=== PATIENT | male | born 1970 | race American Indian/Alaskan Native ===

== ENCOUNTER 2016-12-28 19:48 | Inpatient (IN) | payer MEDICARE, OTHER ==
[2016-12-28 19:57] VITALS: BMI 22.6
[2016-12-28] MEDS ORDERED: Morphine 2 mg/ml ISec IVP STA (20:33)
[2016-12-28] MEDS ORDERED: metroNIDAZOLE IV 500 mg/100 ml 500 MG/100 ML BAG IVPB STA (20:33)
[2016-12-28] MEDS ORDERED: Piperacillin/Tazobact 3.375 gm 100 ML IVPB STA (20:33)
--- NOTE | 2016-12-28 20:35 | ED PDOC ---
Arrival/HPI <David Sosa - Last Filed: 12/29/16 00:22> - General Historian: Patient - History of Present Illness Time/Duration: < month Symptom Course: Worsening Quality: Throbbing Severity Level: 10 Context: Home <Juan Barbosa - Last Filed: 12/29/16 01:40> - General Chief Complaint: Pain, Chronic Time Seen by Provider: 12/28/16 19:50 - History of Present Illness Narrative History of Present Illness (Text): 46 M with PMH of HIV/Hep B presents to ED with complaint of rectal pain. Patient states this pain has been going on for almost 1 month. Patient was admitted to [facility] about 2 weeks ago where he was treated for food poisoning. Patient stated he was admitted for 5 days and received IV antibiotics but they did not address his rectal pain. Patient has had anal fissure in the past with similar pain. Patient rates pain as severe. He describes it as constant and throbbing located perianally/perirectally. Admits to anal discharge and abscess. Patient states that he has also had diarrhea since his admission at [facility]. Denies fever/chills, cp, sob, palpitation, abd pain, nausea/vomiting, hematochezia, hematemesis. (Juan Barbosa) Past Medical History - Provider Review Nursing Documentation Reviewed: Yes - Travel History Have you recently traveled outside [place] w/in the past 3 mons?: No - Infectious Disease Hx of Infectious Diseases: None - Gastrointestinal Hx Pancreatitis: Yes - Psychiatric Hx Substance Use: No - Anesthesia Hx Anesthesia: No Hx Anesthesia Reactions: No Hx Malignant Hyperthermia: No <Juan Barbosa - Last Filed: 12/29/16 01:40> Family/Social History - Physician Review Nursing Documentation Reviewed: Yes Family/Social History: Other (HIV/Hep B) Smoking Status: Never Smoked Hx Alcohol Use: No Hx Substance Use: No <Juan Barbosa - Last Filed: 12/29/16 01:40> Allergies/Home Meds <David Sosa - Last Filed: 12/29/16 00:22> <Juan Barbosa - Last Filed: 12/29/16 01:40> Allergies/Adverse Reactions: Allergies PCN Allergy (Mild, Uncoded 12/28/16 19:58) SWELLING Home Medications: Home Meds Medication Instructions Recorded Confirmed No Known Home Med 12/28/16 12/28/16 Review of Systems - Review of Systems Constitutional: absent: Fatigue, Fevers Eyes: absent: Vision Changes, Photophobia, Eye Pain ENT: absent: Hearing Changes, Tinnitus, Sinus Congestion Respiratory: absent: SOB, Cough, Sputum, Wheezing Cardiovascular: absent: Chest Pain, Palpitations Gastrointestinal: Diarrhea. absent: Abdominal Pain, Nausea, Vomiting, Hematochezia, Hematemesis Genitourinary Male: absent: Dysuria, Frequency, Urinary Output Changes Musculoskeletal: absent: Arthralgias, Back Pain, Neck Pain, Joint Swelling, Myalgias Skin: Abscess (perirectal, anal fissure) Neurological: absent: Headache, Dizziness, Focal Weakness Endocrine: absent: Diaphoresis, Polyuria, Polydipsia Hemo/Lymphatic: absent: Adenopathy, Easy Bleeding, Easy Bruising Psychiatric: absent: Anxiety, Depression, Suicidal Ideation <Juan Barbosa - Last Filed: 12/29/16 01:40> Physical Exam <David Sosa - Last Filed: 12/29/16 00:22> Vital Signs Reviewed: Yes Temperature: Afebrile Blood Pressure: Normal Pulse: Tachycardic Respiratory Rate: Normal Appearance: Positive for: Uncomfortable Pain Distress: Severe Mental Status: Positive for: Alert and Oriented X 3 - Systems Exam Head: Present: Atraumatic, Normocephalic Pupils: Present: PERRL Extroacular Muscles: Present: EOMI Conjunctiva: Present: Normal Mouth: Present: Moist Mucous Membranes Neck: Present: Normal Range of Motion, Trachea Midline Respiratory/Chest: Present: Clear to Auscultation, Good Air Exchange Cardiovascular: Present: Normal S1, S2, Peripheal Pulses Present, Tachycardic Abdomen: Present: Normal Bowel Sounds. No: Tenderness, Distention, Peritoneal Signs, Rebound, Guarding Rectal: Present: Rectal Tenderness, Normal Rectal Tone, Fissures, Other (4 x 2 cm perianal/perirectal abscess, small tract to the left portion of rectum) Back: No: CVA Tenderness Upper Extremity: Present: Normal ROM, NORMAL PULSES, Neurovascularly Intact, Capillary Refill < 2s Lower Extremity: Present: NORMAL PULSES, Normal ROM, Neurovascularly Intact, Capillary Refill < 2 s Neurological: Present: GCS=15, CN II-XII Intact, Speech Normal, Motor Func Grossly Intact, Normal Sensory Function Skin: Present: Warm, Dry, Abscess (perianal/peririectal abscess) Psychiatric: Present: Alert, Oriented x 3, Normal Insight, Normal Concentration <Juan Barbosa - Last Filed: 12/29/16 01:40> Vital Signs Temp Pulse Resp BP Pulse Ox 12/29/16 01:15 98.1 F 99 H 20 98 12/28/16 20:00 98.3 F 100 H 20 99 12/28/16 19:52 98.3 F 100 H 20 96/69 L 99 Medical Decision Making <David Sosa - Last Filed: 12/29/16 00:22> <Juan Barbosa - Last Filed: 12/29/16 01:40> ED Course and Treatment: Impression: Pt seen and evaluated with medical service representative. Pt, whose past medical history includes HIV and hepatitis B, presented for rectal pain for 1 month. Pt reports some anal discharge and diarrhea. Aware and agree with HPI, clinical findings, plan, and management. Plan: -- CT Abdomen and Pelvis with IV contrast -- Labs, blood cultures, stool cultures, wound cultures -- Morphine -- Levaquin -- Flagyl -- Reassess and disposition (David Sosa) ABD/Pelvis CT with IV contrast CBC, CMP, blood culture, wound culture, stool culture, fecal leukocytes, ova and parasite, cdiff, FOBT IV Flagyl, Levofloxacin, Morphine CT shows perirectal abscess and dilated CBD. Labs reviewed. LFTs elevated and WBC low. Patient to be admitted under hospitalist service. Case discussed with Dr. Montes. GI and Surgery consulted. Medical and residential manager made aware. ( Juan Barbosa) - Lab Interpretations Lab Results: 12/28/16 21:05 12/28/16 21:05 Lab Results 12/28/16 21:05: WBC 1.9 L*, RBC 4.88, Hgb 14.2, Hct 40.8 L, MCV 83.6, MCH 29.1, MCHC 34.8, RDW 15.1 H, Plt Count 151, MPV 11.6 H 12/28/16 21:05: Sodium 145, Potassium 4.5, Chloride 107, Carbon Dioxide 28, Anion Gap 15, BUN 16, Creatinine 0.8, Est GFR ( Amer) > 60, Est GFR (Non- Af Amer) > 60, Random Glucose 79, Calcium 8.8, Total Bilirubin 0.6, AST 190 H, ALT 226 H, Alkaline Phosphatase 138 H, Total Protein 9.1 H, Albumin 4.0, Globulin 5.1, Albumin/Globulin Ratio 0.8 L - RAD Interpretation Radiology Orders: 12/28/16 20:30 ABD & PELVIS IV CONTRAST ONLY [CT] Stat - Medication Orders Current Medication Orders: Famotidine (Pepcid) 20 mg IVP DAILY [facility] Sodium Chloride (Sodium Chloride 0.9%) 1,000 mls @ 125 mls/hr IV .Q8H [facility] Last Admin: 12/29/16 01:26 Dose: 125 mls/hr Vancomycin HCl (Vancomycin 1gm) 1 gm in 250 mls @ 167 mls/hr IVPB STAT STA PRN Reason: Protocol Stop: 12/29/16 02:35 Morphine Sulfate (Morphine) 2 mg IVP Q4 PRN PRN Reason: Pain, severe (8-10) Last Admin: 12/29/16 01:25 Dose: 2 mg Ondansetron HCl (Zofran Inj) 4 mg IVP Q6H PRN PRN Reason: Nausea/Vomiting Last Admin: 12/29/16 01:33 Dose: 4 mg Discontinued Medications Metronidazole (Flagyl) 500 mg in 100 mls @ 100 mls/hr IVPB STAT STA PRN Reason: Protocol Stop: 12/28/16 21:32 Last Admin: 12/28/16 21:27 Dose: 100 mls/hr Iohexol (Omnipaque 350 100 Ml) Confirm Administered Dose 350 mg .ROUTE .STK-MED ONE Stop: 12/28/16 21:58 Levofloxacin/Dextrose (Levaquin 750mg) 750 mg IVPB ONCE ONE Stop: 12/28/16 20:38 Last Admin: 12/29/16 00:06 Dose: 750 mg Morphine Sulfate (Morphine) 2 mg IVP STAT STA Stop: 12/28/16 20:34 Last Admin: 12/28/16 21:26 Dose: 2 mg ED OBSERVATION Date of observation admission: 12/28/16 Time of observation admission: 20:30 <David Sosa - Last Filed: 12/29/16 00:22> <Juan Barbosa - Last Filed: 12/29/16 01:40> - Observation admission statement Patient is being placed in observation because:: rectal pain (Sheila,David) - Goals of Observation Goals of observation are:: treatment of symptoms, CT scan, and final disposition (David Sosa) - Progress Note Progress Note: 12/28/16 23:29 Reviewed radiology, CT Abdomen and Pelvis shows: Lower thorax: Heart size is normal. There is minimal atelectasis at the lung bases ABDOMEN: Liver: unremarkable Gallbladder and bile ducts: Gallbladder is partially distended. Common bile duct is dilated, 12.8 mm at the pancreatic head. Pancreas: Pancreas is mildly atrophic. There is prominence of the pancreatic duct, 4 mm in diameter in the pancreatic body 5.6 mm in the pancreatic head. Spleen: unremarkable Adrenals: unremarkable Kidneys and ureters: There is a right renal cyst.There are bilateral nonobstructing renal stones.There is no pelvocaliectasis or ureterectasis. Stomach and bowel: Stomach is distended with ingested material. Rotation is normal. There is mild duodenal wall and fold prominence. There is proximal jejunal wall and fold prominence. There are mildly dilated proximal and mid small bowel loops E. reviewed dilatation decreases distally. There is fluid and air throughout the small bowel. Terminal ileum is distended with fluid. Appendix is unremarkable. There is fluid and air in the colon. There is rectal wall thickening. There is perirectal inflammation. There is a poorly defined right perirectal fluid collection/ abscess, 10.8 x 9.3 x 10 mm, images 173-175, series 2, image 66 series 601 Appendix: See above. PELVIS: Bladder: Bladder is almost empty. There is mild bladder wall thickening. Reproductive: There is prominence of the seminal vesicles and prostate. ABDOMEN and PELVIS: Intraperitoneal space: There is no free air.There is no free fluid. Bones/joints: There are no acute osseous abnormalities Soft tissues: See above. Vasculature: Vascular structures are unremarkable. Lymph nodes: unremarkable IMPRESSION: Duodenal, jejunal and rectal wall thickening suggest enterocolitis; small 10.8 x 9.2 x 10 mm right perirectal collection, possible early abscess; mildly distended gallbladder with dilated common bile duct and pancreatic duct, suggesting distal common duct obstruction , MRCP or ERCP is suggested for more complete evaluation Additional findings as described above. 12/28/16 23:38 Case discussed with medical service representative, who is aware and agrees with plan. administration vice president notified. 12/28/16 23:[address] Montes, who is aware and agrees with plan. Pt will go to hospitalist service. (David Sosa) - PA / ANALYTICAL RESEARCH PROGRAM MANAGER / Resident Statement /DO has reviewed & agrees with the documentation as recorded. / has examined the patient and agrees with the treatment plan. <David Sosa - Last Filed: 12/29/16 00:22> Disposition/Present on Arrival - Present on Arrival Any Indicators Present on Arrival: No History of DVT/PE: No History of Uncontrolled Diabetes: No Urinary Catheter: No History of Decub. Ulcer: No History Surgical Site Infection Following: None - Disposition Have Diagnosis and Disposition been Completed?: Yes Disposition Time: 00:15 Patient Plan: Admission <David Sosa - Last Filed: 12/29/16 00:22> - Present on Arrival Any Indicators Present on Arrival: No History of DVT/PE: No History of Uncontrolled Diabetes: No Urinary Catheter: No History of Decub. Ulcer: No History Surgical Site Infection Following: None - Disposition Have Diagnosis and Disposition been Completed?: Yes Patient Plan: Admission <Juan Barbosa - Last Filed: 12/29/16 01:40> - Disposition Diagnosis: Perirectal abscess, Enterocolitis Disposition: HOSPITALIZED Patient Problems: Current Active Problems Problem Status Onset Perirectal abscess Acute Enterocolitis Acute Condition: STABLE
[2016-12-28] MEDS ORDERED: levoFLOXacin 750 mg in D5W 150 ML BAG IVPB ONE (20:37)
[2016-12-28 21:19] LABS: HEMOGLOBIN 14.2 gm/dL (14.0-18.0); MEAN CELL VOLUME 83.6 fL (80.0-105.0); MEAN CORPUSCULAR HEMOGLOBIN 29.1 pg (25.0-35.0); MEAN CORPUSCULAR HGB CONC 34.8 g/dl (31.0-37.0); MEAN PLATELET VOLUME 11.6 fl (7.0-11.0); RBC 4.88 10^6/uL (3.5-6.1); RED CELL DISTRIBUTION WIDTH 15.1 % (11.5-14.5)
[2016-12-28 21:30] LABS: WHITE BLOOD COUNT 1.9 10^3/ul (4.5-11.0)
[2016-12-28 21:34] LABS: ALB/GLOB RATIO 0.8 (1.1-1.8); ALT/SGPT 226 U/L (7-56); AST/SGOT 190 U/L (15-59); BLOOD UREA NITROGEN 16 mg/dL (7-21); CALCIUM 8.8 mg/dL (8.4-10.5); GFR AFRICAN-AMERICAN > 60; GFR NON-AFRICAN AMERICAN > 60
[2016-12-28] MEDS ORDERED: Iohexol 350 MG/100 ML VIAL ONE (21:57)
--- NOTE | 2016-12-28 23:21 | CT ---
EXAM: CT Abdomen and Pelvis With Intravenous Contrast CLINICAL HISTORY: 46 years old, male; Pain; Abdominal pain; Other: R/O rectal abscess; Prior surgery; Surgery date: 6+ months; Surgery type: Hernia; Additional info: R/O perirectal/rectal abscess TECHNIQUE: Axial computed tomography images of the abdomen and pelvis with intravenous contrast. This CT exam was performed using one or more of the following dose reduction techniques: automated exposure control, adjustment of the mA and/or kV according to patient size, and/or use of iterative reconstruction technique. Coronal and sagittal reformatted images were created and reviewed. CONTRAST: 95 mL of [id number] administered intravenously. EXAM DATE/TIME: 12/28/2016 8:30 PM COMPARISON: There are no prior studies for comparison. FINDINGS: Lower thorax: Heart size is normal. There is minimal atelectasis at the lung bases ABDOMEN: Liver: unremarkable Gallbladder and bile ducts: Gallbladder is partially distended. Common bile duct is dilated, 12.8 mm at the pancreatic head. Pancreas: Pancreas is mildly atrophic. There is prominence of the pancreatic duct, 4 mm in diameter in the pancreatic body 5.6 mm in the pancreatic head. Spleen: unremarkable Adrenals: unremarkable Kidneys and ureters: There is a right renal cyst.There are bilateral nonobstructing renal stones.There is no pelvocaliectasis or ureterectasis. Stomach and bowel: Stomach is distended with ingested material. Rotation is normal. There is mild duodenal wall and fold prominence. There is proximal jejunal wall and fold prominence. There are mildly dilated proximal and mid small bowel loops E. reviewed dilatation decreases distally. There is fluid and air throughout the small bowel. Terminal ileum is distended with fluid. Appendix is unremarkable. There is fluid and air in the colon. There is rectal wall thickening. There is perirectal inflammation. There is a poorly defined right perirectal fluid collection/abscess, 10.8 x 9.3 x 10 mm, images 173-175, series 2, image 66 series 601 Appendix: See above. PELVIS: Bladder: Bladder is almost empty. There is mild bladder wall thickening. Reproductive: There is prominence of the seminal vesicles and prostate. ABDOMEN and PELVIS: Intraperitoneal space: There is no free air.There is no free fluid. Bones/joints: There are no acute osseous abnormalities Soft tissues: See above. Vasculature: Vascular structures are unremarkable. Lymph nodes: unremarkable IMPRESSION: Duodenal, jejunal and rectal wall thickening suggest enterocolitis; small 10.8 x 9.2 x 10 mm right perirectal collection, possible early abscess; mildly distended gallbladder with dilated common bile duct and pancreatic duct, suggesting distal common duct obstruction, MRCP or ERCP is suggested for more complete evaluation Additional findings as described above.
--- NOTE | 2016-12-29 00:36 | CP.PCM.CON ---
<Vishal Gutierrez - Last Filed: 12/29/16 08:47> History of Present Illness - History of Present Illness History of Present Illness: Consult Note- Dr. Baig 46M PMHx of HIV, HepB presented to the ED for diarrhea and perianal abscess. Pt was at [facility] 2 weeks ago for similar symptoms and was discharged after stool tests came back negative. Pt does not recall which tests were taken. Pt was then discharged and ha-anal pain and diarrhea continued to worsen. Pt takes motrin and notices it helps. however over the last week Motrin has decreased effectiveness. Pt denies F/C CP/SOB N/V. Most recent CD4 and viral load was in August 2016. Does not remember exact numbers, CD4 count was low Viral load was elevated. Infectious disease doctor: Dr. Yun PMH: HIV, HepB PSH: umbilical hernia repair, colonoscopy ALL: PCN SocialHx: denies smoking, etoh use, illicit drug use. Review of Systems - Review of Systems All systems: reviewed and no additional remarkable complaints except Past Patient History - Infectious Disease Hx of Infectious Diseases: None - Past Social History Smoking Status: Never Smoked - GASTROINTESTINAL Hx Pancreatitis: Yes - PSYCHIATRIC Hx Substance Use: No - ANESTHESIA Hx Anesthesia: No Hx Anesthesia Reactions: No Hx Malignant Hyperthermia: No Meds Allergies/Adverse Reactions: Allergies Allergy/AdvReac Type Severity Reaction Status Date / Time PCN Allergy Mild SWELLING Uncoded 12/28/16 19:58 Physical Exam - Eye Exam Eye Exam: EOMI - Neck Exam Neck exam: Negative for: Lymphadenopathy - Respiratory Exam Respiratory Exam: NORMAL BREATHING PATTERN. absent: Accessory Muscle Use - GI/Abdominal Exam GI & Abdominal Exam: Soft. absent: Distended, Guarding, Organomegaly - Rectal Exam Rectal Exam: absent: Hemorrhoids Additional comments: fluctuant abscess at 9o'clock position. musucal tear at 7:30. active purulent drainage during exam. No blood per rectum. - Neurological Exam Neurological exam: Alert, Oriented x3 - Skin Skin Exam: Normal Color, Warm Results - Vital Signs Recent Vital Signs: Last Vital Signs Temp 98.3 F 12/28/16 20:00 Pulse 100 H 12/28/16 20:00 Resp 20 12/28/16 20:00 BP 96/69 L 12/28/16 19:52 Pulse Ox 99 12/28/16 20:00 - Labs Result Diagrams: 12/28/16 21:05 12/28/16 21:05 Assessment & Plan - Assessment and Plan (Free Text) Assessment: 46M hx HIV, perianal pain Plan: - f/u cultures - f/u AM labs - IV abx - NPO aftermidnight - pain control - GI/DVT ppx - OR Thursday for I&D of Right perirectal abscess - further recs per Dr. Baig d/w Dr. Safia Gutierrez PGY1 - Date & Time Date: 12/29/16 Time: 12:15 <Michael Baig - Last Filed: 12/30/16 20:12> Meds - Medications Medications: Current Medications Famotidine (Pepcid) 20 mg IVP DAILY [facility] Last Admin: 12/30/16 09:59 Dose: 20 mg Sodium Chloride (Sodium Chloride 0.9%) 1,000 mls @ 125 mls/hr IV .Q8H [facility] Last Admin: 12/30/16 14:26 Dose: 125 mls/hr Vancomycin HCl (Vancomycin 1gm) 1 gm in 250 mls @ 167 mls/hr IVPB Q12H [facility] PRN Reason: Protocol Last Admin: 12/30/16 14:26 Dose: 167 mls/hr Aztreonam (Azactam 1 Gm) 100 mls @ 100 mls/hr IVPB Q8 [facility] PRN Reason: Protocol Stop: 01/06/17 14:46 Last Admin: 12/30/16 17:18 Dose: 100 mls/hr Ibuprofen (Motrin Tab) 400 mg PO Q6H PRN PRN Reason: Fever >100.4 F Last Admin: 12/30/16 06:00 Dose: 400 mg Morphine Sulfate (Morphine) 2 mg IVP Q4 PRN PRN Reason: Pain, severe (8-10) Last Admin: 12/30/16 13:19 Dose: 2 mg Ondansetron HCl (Zofran Inj) 4 mg IVP Q6H PRN PRN Reason: Nausea/Vomiting Last Admin: 12/30/16 06:52 Dose: 4 mg Results - Vital Signs Recent Vital Signs: Last Vital Signs Temp 98.2 F 12/30/16 16:00 Pulse 71 12/30/16 16:00 Resp 20 08/01/17 16:00 BP 98/61 L 12/30/16 16:00 Pulse Ox 98 12/30/16 16:00 - Labs Result Diagrams: 12/30/16 01:40 12/30/16 08:00 Labs: Laboratory Results - last 24 hr 12/29/16 12/29/16 12/30/16 11:45 11:51 01:40 WBC 2.4 L* D RBC 4.07 Hgb 11.5 L Hct 34.3 L MCV 84.3 MCH 28.3 MCHC 33.5 RDW 15.4 H Plt Count 118 L MPV 11.1 H Neutrophils % (Manual) 66 Band Neutrophils % 9 H Lymphocytes % (Manual) 9 L Monocytes % (Manual) 14 H Eosinophils % (Manual) 2 Platelet Evaluation Normal Large Platelets Present Sodium Potassium Chloride Carbon Dioxide Anion Gap BUN Creatinine Est GFR ( Amer) Est GFR (Non-Af Amer) Random Glucose Calcium Total Bilirubin AST ALT Alkaline Phosphatase Total Protein Albumin Globulin Albumin/Globulin Ratio Procalcitonin 0.16 L Anti-Mitochondrial Ab Negative 12/30/16 08:00 WBC RBC Hgb Hct MCV MCH MCHC RDW Plt Count MPV Neutrophils % (Manual) Band Neutrophils % Lymphocytes % (Manual) Monocytes % (Manual) Eosinophils % (Manual) Platelet Evaluation Large Platelets Sodium 141 Potassium 3.5 L Chloride 113 H Carbon Dioxide 19 L Anion Gap 13 BUN 12 Creatinine 0.9 Est GFR ( Amer) > 60 Est GFR (Non-Af Amer) > 60 Random Glucose 79 Calcium 7.3 L Total Bilirubin 0.5 AST 149 H ALT 159 H Alkaline Phosphatase 78 Total Protein 6.2 Albumin 2.5 L Globulin 3.7 Albumin/Globulin Ratio 0.7 L Procalcitonin Anti-Mitochondrial Ab Attending/Attestation - Attestation I have personally seen and examined this patient.: Yes I have fully participated in the care of the patient.: Yes I have reviewed all pertinent clinical information: Yes Notes (Text): 12/30/16 20:12 Pt was seen and examined at bedside on 12/29/16 Agree with above note and assessment Pt with Perianal absces CT scan and Labs reviewed I & D at bedside Consent NPO, IVF IV antibiotics GI consult for possible IBD Plan d.w pt in detail. Risk and benefit explained in detail.
[2016-12-29] MEDS ORDERED: Vancomycin 1gm in NS 250ml 1 GM/250 ML BAG IVPB STA (01:06)
[2016-12-29] MEDS: Morphine 2 mg/ml ISec IVP PRN ×3 (01:25→22:27)
[2016-12-29] MEDS: Sodium Chloride 0.9% 1,000 ML IV SCH ×2 (01:26→09:06)
--- NOTE | 2016-12-29 02:59 | CP.PCM.HP ---
<ESTHER CONTRERAS - Last Filed: 12/29/16 02:41> History of Present Illness - History of Present Illness History of Present Illness: CC: Rectal Pain/Diarrhea HPI: Mr. Isaac is a 46 year old AA male with a PMH significant for HIV and Hepatitis B who presented with complaints of rectal pain and diarrhea. Patient states the rectal pain is constant and that at times is sharp but is mostly throbbing. He reports that when he wipes himself after a BM, he notices blood and sometimes clear fluid. He states it has been going on for almost one month and reports that his ID doctor told him that he probably has an abscess that needs to be drained. Patient was admitted to [facility] about 2 weeks ago where he was treated for food poisoning. Patient stated that he was admitted for several days and received IV antibiotics but they did not address his rectal pain. Since that time, he has had 1-3 episodes of non-bloody diarrhea daily. Patient has had anal fissure in the past with similar pain but no surgical intervention was ever performed. Patient denies headache, dizziness, changes in vision, fever , chills, chest pain, shortness of breath, palpitations, abdominal pain, N/V, hematochezia, or hematemesis. PMH: HIV, Hepatitis B PSH: Hernia repair (at age 11) Family History: Heroin Abuse-Mother Social History: Denies tobacco, alcohol, or illicit drug use Allergies: Penicillin Home Meds: Truvada, patient could not remember his other home medication and states that his meds are "being switched right now" Present on Admission - Present on Admission Any Indicators Present on Admission: No Review of Systems - Review of Systems Review of Systems: Please refer to HPI Past Patient History - Infectious Disease Hx of Infectious Diseases: None - Past Social History Smoking Status: Never Smoked - GASTROINTESTINAL Hx Pancreatitis: Yes - PSYCHIATRIC Hx Substance Use: No - ANESTHESIA Hx Anesthesia: No Hx Anesthesia Reactions: No Hx Malignant Hyperthermia: No Meds Allergies/Adverse Reactions: Allergies Allergy/AdvReac Type Severity Reaction Status Date / Time PCN Allergy Mild SWELLING Uncoded 12/28/16 19:58 Physical Exam - Constitutional Appears: No Acute Distress - Head Exam Head Exam: NORMAL INSPECTION, NORMOCEPHALIC - Eye Exam Eye Exam: EOMI, Normal appearance - ENT Exam ENT Exam: Mucous Membranes Moist, Normal Exam - Neck Exam Neck exam: Positive for: Full Rom. Negative for: Lymphadenopathy, Tenderness - Respiratory Exam Respiratory Exam: Clear to Auscultation Bilateral, NORMAL BREATHING PATTERN. absent: Rales, Rhonchi, Wheezes, Respiratory Distress - Cardiovascular Exam Cardiovascular Exam: REGULAR RHYTHM, RRR, +S1, +S2. absent: Tachycardia, Diastolic murmur, Systolic Murmur - GI/Abdominal Exam GI & Abdominal Exam: Normal Bowel Sounds, Soft. absent: Distended, Firm, Tenderness - Rectal Exam Additional comments: Purulent drainage from small open wound on R anal cleft; fluctuant mass at 9 o' clock position; mucosal tear at 7:30. - Extremities Exam Extremities exam: Positive for: normal capillary refill, pedal pulses present. Negative for: calf tenderness, pedal edema - Neurological Exam Neurological exam: Alert, Oriented x3 - Psychiatric Exam Psychiatric exam: Normal Affect, Normal Mood - Skin Skin Exam: Dry, Intact, Normal Color, Warm Results - Vital Signs Recent Vital Signs: Last Vital Signs Temp 98.1 F 12/29/16 01:15 Pulse 99 H 12/29/16 01:15 Resp 18 12/29/16 01:49 BP 96/69 L 12/28/16 19:52 Pulse Ox 99 12/29/16 01:49 - Labs Result Diagrams: 12/28/16 21:05 12/28/16 21:05 Assessment & Plan - Assessment and Plan (Free Text) Assessment: Mr. Isaac is a 46 year old AA male with a PMH significant for HIV and Hepatitis B who presented with complaints of rectal pain and diarrhea. Plan: 1. Rectal Abscess -CT abd/pelv showed enterolcolitis in duodenal, jejunal and rectal dumont, early perirectal abscess, and mildly distended CBD -surgery consulted, all recs appreciated -I&D scheduled 12/29, per surgery -start vanco for empiric coverage of gram positive organisms -morphine for pain control -NPO except meds -blood/wound cultures pending 2. Diarrhea -see CT results above -started on flagyl -IVF: NS @ 125mls/hr -Cdiff, stool ova/parasites, stool culture, and stool leukocytes pending 3. Dilated CBD/Cholelithiasis -see CT results above; recommends MRCP or ERCP -elevated AST/ALT/AP -GI consulted, all recs appreciated 4. History of HIV -sees Dr. Yun as outpatient -states last CD4 done in August was "low" and viral load "high" -CD4 pending 5. History of Hepatitis B -hep panel pending 6. GI/DVT Prophylaxis -Pepcid/scd's Patient seen and case discussed in detail with attending, Dr. Montes. - Date & Time Date: 12/29/16 Time: 03:05 <Saad Montes Q - Last Filed: 12/29/16 04:43> Results - Vital Signs Recent Vital Signs: Last Vital Signs Temp 98.6 F 12/29/16 02:55 Pulse 80 12/29/16 02:55 Resp 20 12/29/16 02:55 BP 80/46 L 12/29/16 02:55 Pulse Ox 99 12/29/16 01:49 - Labs Result Diagrams: 12/28/16 21:05 12/28/16 21:05 Attending/Attestation - Attestation I have personally seen and examined this patient.: Yes I have fully participated in the care of the patient.: Yes I have reviewed all pertinent clinical information: Yes
[2016-12-29 08:45] LABS: INR 1.36 (0.93-1.08); PARTIAL THROMBOPLASTIN TIME 32.7 Seconds (23.7-30.8); PROTHROMBIN TIME 14.7 Seconds (9.9-11.8)
[2016-12-29 08:52] LABS: URINE BILIRUBIN NEGATIVE (NEGATIVE); URINE BLOOD TRACE-LYSED (NEGATIVE); URINE GLUCOSE (UA) NEGATIVE (NEGATIVE); URINE LEUKOCYTE ESTERASE NEGATIVE Leu/uL (NEGATIVE); URINE NITRATE NEGATIVE (NEGATIVE); URINE PROTEIN TRACE mg/dL (<30 mg/dL); URINE UROBILINOGEN 0.2 E.U./dL (<1 E.U./dL)
[2016-12-29 08:53] LABS: URINE APPEARANCE CLEAR (CLEAR); URINE COLOR YELLOW (YELLOW)
[2016-12-29 08:55] LABS: URINE EPITHELIAL CELLS 0 - 2 /hpf (0-5); URINE WBC 0 - 2 /hpf (0-6)
[2016-12-29 08:56] LABS: URINE BACTERIA NEG (NEG)
[2016-12-29 09:11] LABS: BARBITURATES, UR NEGATIVE (NEGATIVE); BENZODIAZEPINES, UR NEGATIVE (NEGATIVE); OPIATES, UR POSITIVE (NEGATIVE); PHENCYCLIDINE, UR NEGATIVE (NEGATIVE)
--- NOTE | 2016-12-29 09:38 | RAD ---
HISTORY: pre-op COMPARISON: No prior. FINDINGS: LUNGS: No active pulmonary disease. PLEURA: No significant pleural effusion identified, no pneumothorax apparent. CARDIOVASCULAR: Normal. OSSEOUS STRUCTURES: No significant abnormalities. VISUALIZED UPPER ABDOMEN: Normal. OTHER FINDINGS: None. IMPRESSION: No active disease.
--- NOTE | 2016-12-29 10:13 | CARD ---
APPROVED REPORT EKG Measurement Heart [id number] <Conclusion> Sinus rhythm with frequent premature atrial complexes
[2016-12-29] MEDS ORDERED: Sodium Chloride 0.9% 1,000 ML IV STA (11:50)
[2016-12-29 12:04] LABS: HEPATITIS A IGM NEGATIVE (NEGATIVE)
[2016-12-29 12:05] LABS: HEPATITIS B CORE AB NEGATIVE (NEGATIVE)
[2016-12-29 12:16] LABS: HEPATITIS C ANTIBODY NEGATIVE (NEGATIVE)
[2016-12-29] MEDS: levoFLOXacin 750 mg in D5W 750 MG/150 ML BAG IVPB SCH (12:31)
--- NOTE | 2016-12-29 12:42 | CP.PCM.PN ---
<ChinoWanda - Last Filed: 12/29/16 12:35> Subjective - Date & Time of Evaluation Date of Evaluation: 12/29/16 Time of Evaluation: 12:35 - Subjective Subjective: PT seen and examined at bedside. No acute overnight events. Patient states he has diarrhea and rectal pain. Today, he had pain after bowel movement. PT denies F/C, N/V, constipation. Patient states no abdominal pain. Patient is going to OR today for I&D Objective - Vital Signs/Intake and Output Vital Signs (last 24 hours): Temp Pulse Resp BP Pulse Ox 98.7 F 80 20 87/57 L 98 12/29/16 08:00 12/29/16 08:00 12/29/16 08:00 12/29/16 08:00 12/29/16 08:00 Intake and Output: 12/29/16 12/29/16 06:59 18:59 Intake Total 100 Output Total 100 Balance 0 - Medications Medications: Current Medications Famotidine (Pepcid) 20 mg IVP DAILY COUNT INCLUDES [facility] Last Admin: 12/29/16 09:08 Dose: 20 mg Sodium Chloride (Sodium Chloride 0.9%) 1,000 mls @ 125 mls/hr IV .Q8H FLAQUITA Last Admin: 12/29/16 09:06 Dose: 125 mls/hr Metronidazole (Flagyl) 500 mg in 100 mls @ 100 mls/hr IVPB Q8 [facility]LAQUITA PRN Reason: Protocol Levofloxacin/Dextrose (Levaquin 750mg) 750 mg in 150 mls @ 100 mls/hr IVPB DAILY COUNT INCLUDES THE [facility] Last Admin: 12/29/16 12:31 Dose: 100 mls/hr Sodium Chloride (Sodium Chloride 0.9%) 1,000 mls @ 999 mls/hr IV .Q1H1M STA Stop: 12/29/16 12:50 Last Admin: 12/29/16 11:57 Dose: 999 mls/hr Morphine Sulfate (Morphine) 2 mg IVP Q4 PRN PRN Reason: Pain, severe (8-10) Last Admin: 12/29/16 12:31 Dose: 2 mg Ondansetron HCl (Zofran Inj) 4 mg IVP Q6H PRN PRN Reason: Nausea/Vomiting Last Admin: 12/29/16 01:33 Dose: 4 mg - Labs Labs: PT 14.7 Seconds (9.9-11.8) H 12/29/16 08:00 INR 1.36 (0.93-1.08) H 12/29/16 08:00 APTT 32.7 Seconds (23.7-30.8) H 12/29/16 08:00 Assessment and Plan - Assessment and Plan (Free Text) Assessment: 46M with perirectal abscess and CBD dilation. History of HIV and Hep C. Plan: leukopenia, HIV f/u CD4 count monitor CBC IVF NS 1 L bolus, continue NS @ 125cc/hr Monitor BM, I/Os f/u [facility] medical records Rectal abscess: f/u Blood and Wound Cx start abx: levofloxacin and flagyl f/u MRI Abdomen with contrast Elevated LFTs, Hep C f/u antimitochondrial ab, IgG subclass 4, procalcitonin levels Dilated CBD: f/u MRCP <Jamin MARINO,[facility] - Last Filed: 01/02/17 13:30> Objective - Vital Signs/Intake and Output Vital Signs (last 24 hours): Temp Pulse Resp BP Pulse Ox 99.1 F 68 18 105/63 99 01/02/17 08:00 01/02/17 08:00 01/02/17 08:00 01/02/17 08:00 01/02/17 08:00 Intake and Output: 01/02/17 01/02/17 06:59 18:59 Intake Total 600 Output Total 450 Balance 150 - Medications Medications: Current Medications Atovaquone (Mepron) 1,500 mg PO DAILY COUNT INCLUDES THE [facility] Last Admin: 01/02/17 10:39 Dose: Not Given Azithromycin (Zithromax) 200 mg PO Q7D [facility] PRN Reason: Protocol Last Admin: 01/01/17 14:44 Dose: Not Given Azithromycin (Zithromax) 1,000 mg PO Q7D [facility] PRN Reason: Protocol Last Admin: 01/01/17 14:44 Dose: Not Given Famotidine (Pepcid) 20 mg IVP DAILY COUNT INCLUDES THE [facility] Last Admin: 01/02/17 10:27 Dose: 20 mg Aztreonam (Azactam 1 Gm) 100 mls @ 100 mls/hr IVPB Q8 [facility] PRN Reason: Protocol Stop: 01/06/17 14:46 Last Admin: 01/02/17 05:58 Dose: 100 mls/hr Metronidazole (Flagyl) 500 mg in 100 mls @ 100 mls/hr IVPB Q8 [facility] PRN Reason: Protocol Last Admin: 01/02/17 05:58 Dose: 100 mls/hr Ibuprofen (Motrin Tab) 400 mg PO Q6H PRN PRN Reason: Fever >100.4 F Last Admin: 01/01/17 08:15 Dose: 400 mg Lactobacillus Acidophilus (Bacid Acidophilus) 1 cap PO BID [facility] Last Admin: 01/02/17 10:27 Dose: 1 cap Morphine Sulfate (Morphine) 2 mg IVP Q4H PRN PRN Reason: Pain, severe (8-10) Last Admin: 01/02/17 05:24 Dose: 2 mg Ondansetron HCl (Zofran Inj) 4 mg IVP Q6H PRN PRN Reason: Nausea/Vomiting Last Admin: 01/02/17 05:24 Dose: 4 mg - Labs Labs: 01/02/17 07:00 01/02/17 07:00 PT 14.7 Seconds (9.9-11.8) H 12/29/16 08:00 INR 1.36 (0.93-1.08) H 12/29/16 08:00 APTT 32.7 Seconds (23.7-30.8) H 12/29/16 08:00 Attending/Attestation - Attestation I have personally seen and examined this patient.: Yes I have fully participated in the care of the patient.: Yes I have reviewed all pertinent clinical information, including history, physical exam and plan: Yes Notes (Text): 01/02/17 13:26 Patient was seen and examined with medical lab assistant. 46 year old AA male with a PMH significant for HIV and Hepatitis C who presented with complaints of rectal pain and diarrhea last night , has ha rectal abscess, surgery is planning to take him to OR, Patient also also has elevated LFT and dilated CBD, need MRCP, Patient case was discussed with GI Management plan was discussed in detail with patient. Education was provided.
[2016-12-29] MEDS: metroNIDAZOLE IV 500 mg/100 ml 500 MG/100 ML BAG IVPB SCH ×2 (14:13→22:28)
[2016-12-29 14:16] LABS: HEPATITIS B SURFACE AG POSITIVE (NEGATIVE)
[2016-12-29] MEDS ORDERED: Morphine 4 mg/ml ISec IVP STA (17:57)
--- NOTE | 2016-12-29 20:23 | PCM.SURG1 ---
Surgeon's Initial Post Op Note - Surgeon's Notes Surgeon: Safia Merchant Patroller: [place] Pre-Operative Diagnosis: Perianal abscess Operative Findings: same, pus Post-Operative Diagnosis: same Operation Performed: Incision and drainage of perianal abscess Specimen/Specimens Removed: n/a, culture of pus Estimated Blood Loss: EBL {In ML}: 5 Date of Surgery/Procedure: 12/29/16 Time of Surgery/Procedure: 17:00
--- NOTE | 2016-12-29 20:48 | CON ---
GI CONSULTATION Seen and examined at the bedside this morning. The chart was reviewed. REQUEST FOR CONSULT: Perirectal abscess and dilated CBD. HISTORY OF PRESENT ILLNESS: This is a 46-year-old male with a past medical history of HIV and hepatitis B, who came to the emergency room with complaints of rectal ramon and diarrhea. The patient was recently admitted in [facility] about 2 weeks ago, where he states he was treated for food poisoning, and which he received IV antibiotics. The patient states that he did complaint of rectal pain during that admission, but no interventions were done. He did state that he had multiple test on [facility]. He had CAT scan as well as an MRI and abdominal ultrasound and that it did show gallstones. He does report, that he has had this rectal pain for quite a while, perhaps over a year. He does complain of episodes of non bloody diarrhea daily. History of anal fissure in the past but no surgical intervention needed. Denies any hematochezia or hematemesis. He states that he is following up with doctors at [facility] infectious disease doctor, Dr. Abdi and Dr. Nagy who is a integrative therapeutic medicine. On admission, he did have CAT scan of the abdomen and pelvis with only IV contrast and that showed duodenal, jejunal, rectal wall thickening, suggestive of enterocolitis as well as a 10.8 x 9.2 x 10 mm right perirectal collection. The gallbladder was reported to be distended and showed also a dilated CBD and pancreatic duct. PAST MEDICAL HISTORY: As stated above hepatitis B, HIV, recent food poisoning. Discharged [facility] about 2 weeks ago. PAST SURGICAL HISTORY: He had a hernia repair. FAMILY HISTORY: His mother was heroin abuse. SOCIAL HISTORY: Clare any tobacco, alcohol, or ETOH. 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 ALLERGIES: PENICILLIN. MEDICATION: Reviewed as per JUL. REVIEW OF SYSTEMS: Systems reviewed with positive findings see HPI. He also had a chest x-ray on admission and that was negative for any active disease. PHYSICAL EXAMINATION VITAL SIGNS: Temperature is 98.7, blood pressure is 87/57, pulse 80, respirations 20 and 98% on room air. HEENT: Sclerae are anicteric. NECK: Supple. CARDIAC: S1 and S2. LUNGS: Decreased breath sounds, but good air entry. ABDOMEN: With bowel sounds soft and nontender. No rebound or guarding. RECTAL: The patient has a small open wound on the right inner crest with purulent drainage. EXTREMITIES: Positive pedal pulses. No edema. NEUROLOGIC: Awake, alert and oriented. LABORATORY DATA: From 12/28/2016 H&H 14.2 and 40.8, platelets is 151. PT is 14.7, INR is 1.36 and PTT is 32.7. Sodium 145, potassium 4.5, BUN 16 and creatinine 0.8. Total bilirubin 0.6, AST 190, ALT 226, alkaline phosphatase is 138. Urinalysis was done, it showed trace the blood and protein, negative for Leukocyte esterase. Toxicology is positive for opiates only. ASSESSMENT: This is 46-year-old male with a past medical history of human immunodeficiency virus and hepatitis B came to the emergency room with complaints of rectal pain, and diarrhea. Recently discharged from [facility] for food poisoning. The patient is status post CT scan of the abdominal and pelvis, which reveals enterocolitis of the duodenal, jejunal and rectal dumont, early perirectal abscess and distended common bile duct,diarrhea, dilated common bile duct and cholelithiasis. PLAN: The patient states that he had multiple diagnostics test done [facility] of CAT scan/MRI/abdominal ultrasound. I spoke to the patient and nursing staff and request medical record from [facility]. The patient agreed to sign release form. In the meantime, follow up hepatitis panel, his stool for C. diff, ova and parasite, stool culture and wound culture results are currently pending. He is going to have an I&D with surgery today. Also follow the fecal leukocytes. Continue GI prophylaxis, he is on Pepcid 20 IV, IV antibiotics of Levaquin and Flagyl. He is on morphine for pain, continue IV fluid for hydration and we will make further recommendations after review of his pervious scans [facility]. Thank you for this consult and for allowing us to participate in your patient's care. The patient was seen and care discussed with Dr. Hidalgo. GUEVARA Mortensen
[2016-12-30 02:17] LABS: HEMOGLOBIN 11.5 gm/dL (14.0-18.0); MEAN CELL VOLUME 84.3 fL (80.0-105.0); MEAN CORPUSCULAR HEMOGLOBIN 28.3 pg (25.0-35.0); MEAN CORPUSCULAR HGB CONC 33.5 g/dl (31.0-37.0); MEAN PLATELET VOLUME 11.1 fl (7.0-11.0); PLATELET COUNT 118 10^3/uL (120.0-450.0); RBC 4.07 10^6/uL (3.5-6.1); RED CELL DISTRIBUTION WIDTH 15.4 % (11.5-14.5)
[2016-12-30 02:23] LABS: WHITE BLOOD COUNT 2.4 10^3/ul (4.5-11.0)
[2016-12-30 03:34] LABS: BAND 9 % (0-2); EOSINOPHIL 2 % (0.0-3.0); LYMPHOCYTE 9 % (22.0-35.0); MONOCYTE 14 % (1.0-6.0); NEUTROPHIL 66 % (50.0-70.0); PLATELET ESTIMATE NORMAL (NORMAL)
[2016-12-30 03:35] LABS: LARGE PLATELETS PRESENT
[2016-12-30] MEDS: metroNIDAZOLE IV 500 mg/100 ml 500 MG/100 ML BAG IVPB SCH ×2 (06:00→14:32)
[2016-12-30] MEDS: Morphine 2 mg/ml ISec IVP PRN ×3 (06:52→20:20)
[2016-12-30 09:59] LABS: ALB/GLOB RATIO 0.7 (1.1-1.8); ALBUMIN 2.5 g/dL (3.0-4.8); ALT/SGPT 159 U/L (7-56); AST/SGOT 149 U/L (15-59); BLOOD UREA NITROGEN 12 mg/dL (7-21); CALCIUM 7.3 mg/dL (8.4-10.5); GFR AFRICAN-AMERICAN > 60; GFR NON-AFRICAN AMERICAN > 60
[2016-12-30] MEDS ORDERED: Gadodiamide 287 MG/ML VIAL (15ML) IV ONE (10:25)
--- NOTE | 2016-12-30 11:18 | CP.PCM.PN ---
<ChinoWanda - Last Filed: 12/30/16 11:54> Subjective - Date & Time of Evaluation Date of Evaluation: 12/30/16 Time of Evaluation: 11:11 - Subjective Subjective: PT S&E at bedside. JAGRUTI. Nurse called to make residents aware of temperature overnight. Patient is resting comfortably in bed. He states there is pain, but is tolerating the pain. He states that he would like to move and walk around. Patient is asking case management referral for [facility]. Patient denies F/C , N/V, C/D. Objective - Vital Signs/Intake and Output Vital Signs (last 24 hours): Temp Pulse Resp BP Pulse Ox 101.8 F H 91 H 20 103/57 L 98 12/30/16 08:22 12/30/16 08:22 12/30/16 08:22 12/30/16 08:22 12/30/16 08:22 Intake and Output: 12/30/16 12/30/16 06:59 18:59 Intake Total 180 Output Total 400 Balance -220 - Medications Medications: Current Medications Famotidine (Pepcid) 20 mg IVP DAILY [facility] Last Admin: 12/30/16 09:59 Dose: 20 mg Sodium Chloride (Sodium Chloride 0.9%) 1,000 mls @ 125 mls/hr IV .Q8H [facility] Last Admin: 12/29/16 09:06 Dose: 125 mls/hr Metronidazole (Flagyl) 500 mg in 100 mls @ 100 mls/hr IVPB Q8 [facility] PRN Reason: Protocol Last Admin: 12/30/16 06:00 Dose: 100 mls/hr Levofloxacin/Dextrose (Levaquin 750mg) 750 mg in 150 mls @ 100 mls/hr IVPB DAILY [facility] Last Admin: 12/29/16 12:31 Dose: 100 mls/hr Ibuprofen (Motrin Tab) 400 mg PO Q6H PRN PRN Reason: Fever >100.4 F Last Admin: 12/30/16 06:00 Dose: 400 mg Morphine Sulfate (Morphine) 2 mg IVP Q4 PRN PRN Reason: Pain, severe (8-10) Last Admin: 12/30/16 06:52 Dose: 2 mg Ondansetron HCl (Zofran Inj) 4 mg IVP Q6H PRN PRN Reason: Nausea/Vomiting Last Admin: 12/30/16 06:52 Dose: 4 mg - Labs Labs: 12/30/16 01:40 12/30/16 08:00 PT 14.7 Seconds (9.9-11.8) H 12/29/16 08:00 INR 1.36 (0.93-1.08) H 12/29/16 08:00 APTT 32.7 Seconds (23.7-30.8) H 12/29/16 08:00 - Constitutional Appears: Non-toxic, Chronically Ill - Head Exam Head Exam: NORMAL INSPECTION - Eye Exam Eye Exam: EOMI, Normal appearance Pupil Exam: NORMAL ACCOMODATION - ENT Exam ENT Exam: Mucous Membranes Moist - Neck Exam Neck Exam: Normal Inspection - Respiratory Exam Respiratory Exam: Clear to Ausculation Bilateral, NORMAL BREATHING PATTERN. absent: Accessory Muscle Use, Wheezes, Respiratory Distress, Stridor - Cardiovascular Exam Cardiovascular Exam: REGULAR RHYTHM. absent: Bradycardia, Tachycardia - Exam Additional comments: drainage at site of I&D. pain at site of incision and drainage. - Extremities Exam Extremities Exam: Full ROM, Normal Inspection - Neurological Exam Neurological Exam: Alert, Awake, Normal Gait - Psychiatric Exam Psychiatric exam: Flat Affect - Skin Skin Exam: Dry, Normal Color, Warm Assessment and Plan - Assessment and Plan (Free Text) Assessment: 46M rectal abscess. with a past medical history of HIV, Hep C, who presented with complaints of rectal pain and diarrhea s/p I&D POD #1 Plan: Plan: 1. Rectal Abscess continue with current antibiotic treatment morphine for pain control CLD blood/wound cultures pending 2. Diarrhea -IVF: NS @ 125mls/hr -negative Cdiff toxin, stool ova/parasites, stool culture, and stool leukocytes pending f/u anti microglobulin ab, IgG subclass4 levels 3. Dilated CBD/Cholelithiasis f/u MRCP MRI abdomen results 4. History of HIV -sees Dr. Yun as outpatient ([place]) -CD4 pending 5. History of Hepatitis B -hep panel pending 6. GI/DVT Prophylaxis -Pepcid/scd's Case management referral for [facility] Physical therapy Eval and treat Wanda Magana, DO PGY1 <Laureen Wilson - Last Filed: 12/31/16 16:43> Objective - Vital Signs/Intake and Output Vital Signs (last 24 hours): Temp Pulse Resp BP Pulse Ox 98.7 F 59 L 20 98/58 L 100 12/31/16 08:00 12/31/16 08:00 12/31/16 08:00 12/31/16 08:00 12/31/16 08:00 Intake and Output: 12/31/16 12/31/16 06:59 18:59 Intake Total 420 120 Output Total 1350 600 Balance -930 -480 - Medications Medications: Current Medications Atovaquone (Mepron) 1,500 mg PO DAILY [facility] Last Admin: 12/31/16 14:59 Dose: Not Given Famotidine (Pepcid) 20 mg IVP DAILY [facility] Last Admin: 12/31/16 10:38 Dose: 20 mg Sodium Chloride (Sodium Chloride 0.9%) 1,000 mls @ 125 mls/hr IV .Q8H [facility] Last Admin: 12/30/16 14:26 Dose: 125 mls/hr Aztreonam (Azactam 1 Gm) 100 mls @ 100 mls/hr IVPB Q8 [facility] PRN Reason: Protocol Stop: 01/06/17 14:46 Last Admin: 12/31/16 13:04 Dose: 100 mls/hr Metronidazole (Flagyl) 500 mg in 100 mls @ 100 mls/hr IVPB Q8 [facility] PRN Reason: Protocol Last Admin: 12/31/16 14:50 Dose: 100 mls/hr Ibuprofen (Motrin Tab) 400 mg PO Q6H PRN PRN Reason: Fever >100.4 F Last Admin: 12/31/16 02:19 Dose: 400 mg Lactobacillus Acidophilus (Bacid Acidophilus) 1 cap PO BID [facility] Morphine Sulfate (Morphine) 2 mg IVP Q4 PRN PRN Reason: Pain, severe (8-10) Last Admin: 12/31/16 12:50 Dose: 2 mg Ondansetron HCl (Zofran Inj) 4 mg IVP Q6H PRN PRN Reason: Nausea/Vomiting Last Admin: 12/31/16 12:53 Dose: 4 mg - Labs Labs: 12/31/16 06:45 12/31/16 06:45 PT 14.7 Seconds (9.9-11.8) H 12/29/16 08:00 INR 1.36 (0.93-1.08) H 12/29/16 08:00 APTT 32.7 Seconds (23.7-30.8) H 12/29/16 08:00 Attending/Attestation - Attestation I have personally seen and examined this patient.: Yes I have fully participated in the care of the patient.: Yes I have reviewed all pertinent clinical information, including history, physical exam and plan: Yes Notes (Text): 12/31/16 16:41 attending note; Patient seen and examined with resident. Patient is a 46-year-old male with a history of HIV, hepatitis B is admitted with perirectal abscess. Status post incision and drainage. Continue dressing change as per surgery. Continue IV azactam. history of HIV; currently not on any medications. ID evaluation requested. pancytopenia; secondary to HIV. Dilated CBD; chronic. MRCP ordered. Diarrhea; resolved. Stool studies ordered. loft worker evaluation requested to assist with aida care. Upon discharge the patient will follow-up with PMD of choice.
[2016-12-30] MEDS: levoFLOXacin 750 mg in D5W 750 MG/150 ML BAG IVPB SCH (12:13)
--- NOTE | 2016-12-30 12:32 | CP.PCM.PN ---
Subjective - Date & Time of Evaluation Date of Evaluation: 12/30/16 Time of Evaluation: 06:50 - Subjective Subjective: Pt S&E at bedside. Pt has no new complaints at this time. Pt says he has some pain but is tolerating it. Pt admits to some diarrhea. Pt denies N/V, C, CP/SOB , LH. Objective - Vital Signs/Intake and Output Vital Signs (last 24 hours): Temp Pulse Resp BP Pulse Ox 101.8 F H 91 H 20 103/57 L 98 12/30/16 08:22 12/30/16 08:22 12/30/16 08:22 12/30/16 08:22 12/30/16 08:22 Intake and Output: 12/30/16 12/30/16 06:59 18:59 Intake Total 180 Output Total 400 Balance -220 - Medications Medications: Current Medications Famotidine (Pepcid) 20 mg IVP DAILY [facility] Last Admin: 12/30/16 09:59 Dose: 20 mg Sodium Chloride (Sodium Chloride 0.9%) 1,000 mls @ 125 mls/hr IV .Q8H [facility] Last Admin: 12/29/16 09:06 Dose: 125 mls/hr Metronidazole (Flagyl) 500 mg in 100 mls @ 100 mls/hr IVPB Q8 [facility] PRN Reason: Protocol Last Admin: 12/30/16 06:00 Dose: 100 mls/hr Levofloxacin/Dextrose (Levaquin 750mg) 750 mg in 150 mls @ 100 mls/hr IVPB DAILY [facility] Last Admin: 12/30/16 12:13 Dose: 100 mls/hr Ibuprofen (Motrin Tab) 400 mg PO Q6H PRN PRN Reason: Fever >100.4 F Last Admin: 12/30/16 06:00 Dose: 400 mg Morphine Sulfate (Morphine) 2 mg IVP Q4 PRN PRN Reason: Pain, severe (8-10) Last Admin: 12/30/16 06:52 Dose: 2 mg Ondansetron HCl (Zofran Inj) 4 mg IVP Q6H PRN PRN Reason: Nausea/Vomiting Last Admin: 12/30/16 06:52 Dose: 4 mg - Labs Labs: 12/30/16 01:40 12/30/16 08:00 PT 14.7 Seconds (9.9-11.8) H 07/31/17 08:00 INR 1.36 (0.93-1.08) H 12/29/16 08:00 APTT 32.7 Seconds (23.7-30.8) H 12/29/16 08:00 - Constitutional Appears: Non-toxic, No Acute Distress - Head Exam Head Exam: NORMAL INSPECTION - Eye Exam Eye Exam: EOMI, Normal appearance - ENT Exam ENT Exam: Mucous Membranes Moist - Neck Exam Neck Exam: Full ROM - Respiratory Exam Respiratory Exam: NORMAL BREATHING PATTERN. absent: Respiratory Distress, Stridor - Cardiovascular Exam Cardiovascular Exam: RRR. absent: Bradycardia, Tachycardia - Exam Additional comments: Drainage and bleeding at I&D site. Bandage and iodoform packing were changed and bright red blood was noted at the incision site. No prurulent dainage or surrounding erythema noted. - Extremities Exam Extremities Exam: Full ROM, Normal Inspection - Neurological Exam Neurological Exam: Alert, Awake, Oriented x3 - Psychiatric Exam Psychiatric exam: Normal Affect, Normal Mood - Skin Skin Exam: Dry, Intact, Normal Color, Warm Assessment and Plan - Assessment and Plan (Free Text) Plan: 1. Perirectal abscess - wound culture: GNR - blood cultures neg x2 - f/u stool cultures - Continue dressing changes - Surgicel for hemostasis as needed - Continue abx per medicine - Possible removal of packing and discharge tomorrow Pt discussed with Dr. Safia Connors DO PGY1
[2016-12-30] MEDS ORDERED: Potassium Chloride 20 mEq ER Tab PO ONE (13:14)
[2016-12-30] MEDS: Vancomycin 1gm in NS 250ml 1 GM/250 ML BAG IVPB SCH (14:26)
[2016-12-30] MEDS: Sodium Chloride 0.9% 1,000 ML IV SCH (14:26)
--- NOTE | 2016-12-30 14:54 | MRI ---
PROCEDURE: MRI Abdomen with and without contrast with MRCP HISTORY: Dilated CBD COMPARISON: None available. TECHNIQUE: Multisequence, multiplanar MR images of the abdomen with and without gadolinium contrast enhancement. 15 cc of Omniscan FINDINGS: LIVER: Unremarkable. GALLBLADDER: Gallbladder is unremarkable. The common duct is dilated measuring 12 mm. There is no evidence of common duct stone or obstructing mass. SPLEEN: Unremarkable. PANCREAS: Unremarkable. ADRENALS: Unremarkable. KIDNEYS: Unremarkable. AORTA: No aneurysm. ASCITES: None. PERITONEUM: Unremarkable. LYMPH NODES: Unremarkable. OTHER FINDINGS: No enhancing lesions IMPRESSION: Dilated common duct with no stones or obstructing mass
[2016-12-30] MEDS ORDERED: DiphenhydrAMINE 12.5 mg/5 ml LIQ UD (5 ml) PO STA (16:54)
[2016-12-30] MEDS: Aztreonam 1 Gm in NS 100mL 100 ML IVPB SCH ×2 (17:18→22:04)
--- NOTE | 2016-12-30 17:59 | PN ---
SUBJECTIVE: The patient was seen and examined earlier today. The patient had a bedside I and D on his right perirectal abscess. The patient does have some discomfort, but no acute distress. No report of any nausea, vomiting. He is still having loose bowel movement. No reports of any bleeding. No fever or chills. Denies abdominal pain. He went for MRCP this morning. PHYSICAL EXAMINATION: VITAL SIGNS: Temperature is 101.8, blood pressure 103/57, pulse 91, respirations 20, 98% room air. HEENT: Sclerae is anicteric. NECK: Supple. CARDIAC: S1, S2. LUNGS: Sounds are clear. ABDOMEN: With bowel sounds, soft, nontender. No rebound or guarding. He has some drainage on the I and D and bleeding. LABORATORY DATA: Labs are WBC 2.4. His H and H is 11.5 and 34.3, platelets is 118. Sodium is 141, K 3.5, BUN 12, creatinine 0.9. His total bilirubin is 0.5. AST 149, ALT 159, alk phos is 78. His LFTs are better. He had MRCP done and the report shows gallbladder is unremarkable. The common duct is dilated measuring 12 mm. There is no evidence of common duct stone or obstructing mass. The pancreas is unremarkable. Spleen is unremarkable. Peritoneum, no lymph nodes. This was done with and without contrast. ASSESSMENT: Left perirectal abscess, status post incision and drainage, common bile duct dilatation, status post magnetic resonance cholangiopancreatography, which is reporting common bile duct dilatation, no stones or obstructing mass seen. He has hepatitis B, HIV, history of shigella. PLAN: The patient's records from [facility] were reviewed. The patient is on IV antibiotics, Azactam, vancomycin. Continue GI prophylaxis. He is on Pepcid. Currently on clear liquids, trend LFTs, which are improving. We will continue to trend LFTs and review the MRCP. We will follow up. The patient is also being followed by surgery and ID. The patient was seen and case discussed with Dr. Hidalgo. GUEVARA Mortensen [facility] # [id number]
[2016-12-30] MEDS ORDERED: Piperacillin/Tazobact 3.375 gm 100 ML IVPB SCH (18:00)
[2016-12-31] MEDS: Vancomycin 1gm in NS 250ml 1 GM/250 ML BAG IVPB SCH (00:09)
--- NOTE | 2016-12-31 03:54 | OP ---
PROCEDURE DATE: 12/29/2016 PREOPERATIVE DIAGNOSES: 1. Perianal abscess. 2. Diarrhea. 3. Possible inflammatory bowel disease. POSTOPERATIVE DIAGNOSES: 1. Perianal abscess. 2. Diarrhea. 3. Possible inflammatory bowel disease. PROCEDURE: Incision and drainage of the peritoneal abscess. SURGEON: Dr. Baig. MACHINE PULLER AND LASTER: Dr. Lee Bryant. TYPE OF ANESTHESIA: Local anesthesia. INTRAOPERATIVE FINDINGS: The patient had perianal left-sided abscess of approximately 2 x 2 cm size. ESTIMATED BLOOD LOSS: Around 10 mL. DRAIN: None. COMPLICATIONS: None. SPECIMEN: In pathology, pus was sent for the culture and sensitivity. DESCRIPTION OF PROCEDURE: This is a 46-year-old male who was diagnosed with perianal abscess and the patient was concerned about the incision and drainage of the abscess and the patient was placed in the right leg preposition and perianal area was prepped and draped and local anesthesia was injected. The vertical 2 cm incision was made and abscess cavity was entered and approximately 10 mL of pus was drained and pus was sent for culture and sensitivity. The wound was irrigated and packed with iodoform packing and dry dressing was applied. The patient tolerated the procedure well. Count of instrument was correct. There were no apparent complications. Michael Baig MD [facility]
[2016-12-31] MEDS: Aztreonam 1 Gm in NS 100mL 100 ML IVPB SCH ×3 (05:11→21:40)
[2016-12-31 07:22] LABS: HEMOGLOBIN 10.5 gm/dL (14.0-18.0); MEAN CELL VOLUME 82.8 fL (80.0-105.0); MEAN CORPUSCULAR HEMOGLOBIN 27.7 pg (25.0-35.0); MEAN CORPUSCULAR HGB CONC 33.4 g/dl (31.0-37.0); MEAN PLATELET VOLUME 10.8 fl (7.0-11.0); PLATELET COUNT 108 10^3/uL (120.0-450.0); RBC 3.79 10^6/uL (3.5-6.1); RED CELL DISTRIBUTION WIDTH 15.3 % (11.5-14.5)
[2016-12-31 07:37] LABS: ALB/GLOB RATIO 0.6 (1.1-1.8); ALBUMIN 2.3 g/dL (3.0-4.8); ALT/SGPT 169 U/L (7-56); AST/SGOT 188 U/L (15-59); BLOOD UREA NITROGEN 8 mg/dL (7-21); CALCIUM 7.6 mg/dL (8.4-10.5); GFR AFRICAN-AMERICAN > 60; GFR NON-AFRICAN AMERICAN > 60
[2016-12-31] MEDS ORDERED: Potassium Chloride 20 mEq ER Tab PO ONE (07:40)
[2016-12-31 07:56] LABS: WHITE BLOOD COUNT 1.6 10^3/ul (4.5-11.0)
[2016-12-31 08:07] LABS: BAND 2 % (0-2); EOSINOPHIL 6 % (0.0-3.0); LYMPHOCYTE 8 % (22.0-35.0); MONOCYTE 17 % (1.0-6.0); NEUTROPHIL 67 % (50.0-70.0); PLATELET ESTIMATE LOW (NORMAL)
--- NOTE | 2016-12-31 09:51 | CP.PCM.PN ---
<Jeannie Connors - Last Filed: 12/31/16 14:31> Subjective - Date & Time of Evaluation Date of Evaluation: 12/31/16 Time of Evaluation: 09:00 - Subjective Subjective: Pt S&E at bedside. Pt has no new complaints at this time. Pt says he is still having diarrhea and some pain at the incision site. Pt is having occasional episodes of dizziness. Pt denies abdominal pain, N/V, CP, SOB, PULIDO. Objective - Vital Signs/Intake and Output Vital Signs (last 24 hours): Temp Pulse Resp BP Pulse Ox 98.7 F 59 L 20 98/58 L 100 12/31/16 08:00 12/31/16 08:00 12/31/16 08:00 12/31/16 08:00 12/31/16 08:00 Intake and Output: 12/31/16 12/31/16 06:59 18:59 Intake Total 420 Output Total 1350 300 Balance -930 -300 - Medications Medications: Current Medications Famotidine (Pepcid) 20 mg IVP DAILY [facility] Last Admin: 12/30/16 09:59 Dose: 20 mg Sodium Chloride (Sodium Chloride 0.9%) 1,000 mls @ 125 mls/hr IV .Q8H [facility] Last Admin: 12/30/16 14:26 Dose: 125 mls/hr Aztreonam (Azactam 1 Gm) 100 mls @ 100 mls/hr IVPB Q8 [facility] PRN Reason: Protocol Stop: 01/06/17 14:46 Last Admin: 12/31/16 05:11 Dose: 100 mls/hr Metronidazole (Flagyl) 500 mg in 100 mls @ 100 mls/hr IVPB Q8 [facility] PRN Reason: Protocol Ibuprofen (Motrin Tab) 400 mg PO Q6H PRN PRN Reason: Fever >100.4 F Last Admin: 12/31/16 02:19 Dose: 400 mg Morphine Sulfate (Morphine) 2 mg IVP Q4 PRN PRN Reason: Pain, severe (8-10) Last Admin: 12/30/16 20:20 Dose: 2 mg Ondansetron HCl (Zofran Inj) 4 mg IVP Q6H PRN PRN Reason: Nausea/Vomiting Last Admin: 12/30/16 20:21 Dose: 4 mg - Labs Labs: 12/31/16 06:45 08/02/17 06:45 PT 14.7 Seconds (9.9-11.8) H 12/29/16 08:00 INR 1.36 (0.93-1.08) H 12/29/16 08:00 APTT 32.7 Seconds (23.7-30.8) H 12/29/16 08:00 - Constitutional Appears: Non-toxic, No Acute Distress - Head Exam Head Exam: ATRAUMATIC - Eye Exam Eye Exam: EOMI - ENT Exam ENT Exam: Mucous Membranes Moist - Neck Exam Neck Exam: Full ROM - Respiratory Exam Respiratory Exam: NORMAL BREATHING PATTERN. absent: Respiratory Distress, Stridor - Cardiovascular Exam Cardiovascular Exam: REGULAR RHYTHM. absent: Tachycardia - GI/Abdominal Exam GI & Abdominal Exam: Soft. absent: Tenderness - Exam Additional comments: Very little purulent discharge vs. fecal matter at perirectal incision site. Some tenderness directly around incision site. No bleeding or surrounding erythema. Clean bandage reapplied without packing. - Extremities Exam Extremities Exam: Full ROM - Psychiatric Exam Psychiatric exam: Normal Affect, Normal Mood - Skin Skin Exam: Dry, Intact, Normal Color, Warm Assessment and Plan - Assessment and Plan (Free Text) Plan: 46 y/o M s/p I&D of perirectal abscess - Wound culture showing E. coli - Stool neg for C diff - Pt educated on wound care and dressing changes - advised pt to try probiotics or yogurt to help with diarrhea - Cont abx per medicine - GI consult for f/u care - Pt clear for d/c from surgery Pt discussed with Dr. Safia Connors DO PGY1 <Michael Baig B - Last Filed: 12/31/16 20:48> Objective - Vital Signs/Intake and Output Vital Signs (last 24 hours): Temp Pulse Resp BP Pulse Ox 98.1 F 50 L 18 113/69 99 12/31/16 16:58 12/31/16 16:58 12/31/16 16:58 12/31/16 16:58 12/31/16 16:58 Intake and Output: 12/31/16 01/01/17 18:59 06:59 Intake Total 120 Output Total 600 Balance -480 - Medications Medications: Current Medications Atovaquone (Mepron) 1,500 mg PO DAILY [facility] Last Admin: 12/31/16 14:59 Dose: Not Given Famotidine (Pepcid) 20 mg IVP DAILY [facility] Last Admin: 12/31/16 10:38 Dose: 20 mg Aztreonam (Azactam 1 Gm) 100 mls @ 100 mls/hr IVPB Q8 [facility] PRN Reason: Protocol Stop: 01/06/17 14:46 Last Admin: 12/31/16 13:04 Dose: 100 mls/hr Metronidazole (Flagyl) 500 mg in 100 mls @ 100 mls/hr IVPB Q8 [facility] PRN Reason: Protocol Last Admin: 12/31/16 14:50 Dose: 100 mls/hr Ibuprofen (Motrin Tab) 400 mg PO Q6H PRN PRN Reason: Fever >100.4 F Last Admin: 12/31/16 02:19 Dose: 400 mg Lactobacillus Acidophilus (Bacid Acidophilus) 1 cap PO BID [facility] Last Admin: 12/31/16 17:58 Dose: 1 cap Morphine Sulfate (Morphine) 2 mg IVP Q4 PRN PRN Reason: Pain, severe (8-10) Last Admin: 12/31/16 12:50 Dose: 2 mg Ondansetron HCl (Zofran Inj) 4 mg IVP Q6H PRN PRN Reason: Nausea/Vomiting Last Admin: 12/31/16 12:53 Dose: 4 mg - Labs Labs: 12/31/16 06:45 12/31/16 06:45 PT 14.7 Seconds (9.9-11.8) H 12/29/16 08:00 INR 1.36 (0.93-1.08) H 12/29/16 08:00 APTT 32.7 Seconds (23.7-30.8) H 12/29/16 08:00 Attending/Attestation - Attestation I have personally seen and examined this patient.: Yes I have fully participated in the care of the patient.: Yes I have reviewed all pertinent clinical information, including history, physical exam and plan: Yes Notes (Text): 12/31/16 20:35 Pt was seen and examined at bedside on 12/31/16 Agree with above note and assessment
--- NOTE | 2016-12-31 10:10 | CP.PCM.CON ---
<Farhana Contreras - Last Filed: 12/31/16 12:04> History of Present Illness - History of Present Illness History of Present Illness: PGY-[address] Miles ID Consult: Poncho is a 46 y.o AA male with PMH significant for HIV and Hepatitis B c/o rectal pain and diarrhea. Patient has about a week-long hospital stay at [facility] about 2 weeks ago for food poisoning treated with IV antibiotics. Since then, he has had 1-3 episodes of non-bloody diarrhea daily. Patient has had anal fissure in the past with similar pain but no surgical intervention was ever performed. He was admitted for peranal abscess. CT abd/pelv showed enterolcolitis in duodenal, jejunal and rectal dumont, early perirectal abscess, and mildly distended CBD. He had I&D on 12/29. Pt was on Levofloxacin and flagyl. Now on Flagyl and aztreonam. Elevated LFTs Hep B antigen and Ag neutralization (+) Proc 0.16 WBC 1.9 --> 2.4 --> 1.6 Wound culure 12/28 - E coli 12/29 - E coli Blood culure - no growth x 48 hr MRCP (12/30) - dilated common duct no stones or obstructing mass ROS - Denies headache, dizziness, changes in vision, fever, chills, chest pain, shortness of breath, palpitations, abdominal pain, N/V, hematochezia, or hematemesis. PMH: HIV (Dx 2000), Hepatitis B (Dx 2004) PSH: Hernia repair (at age 11) Family History: Heroin Abuse-Mother Social History: Denies tobacco, alcohol, or illicit drug use Allergies: Penicillin Home Meds: Truvada (stopped august 2015), patient could not remember his other home medication and states that his meds are "being switched right now" Had tried sustiva but cannot tolerate due to hallucination, dizziness, lethargy Pt refused antibiotics prophylaxis and insisted on non-traditional medicine PMD: Dr. Irizarry [phone] Outpt ID: Dr. Dominguez, [place], [place] Past Patient History - Infectious Disease Hx of Infectious Diseases: None - Past Social History Smoking Status: Never Smoked - MUSCULOSKELETAL/RHEUMATOLOGICAL Hx Falls: No Hx Unsteady Gait: Yes - GASTROINTESTINAL Hx Pancreatitis: Yes - PSYCHIATRIC Hx Substance Use: No - ANESTHESIA Hx Anesthesia: No Hx Anesthesia Reactions: No Hx Malignant Hyperthermia: No Meds Allergies/Adverse Reactions: Allergies Allergy/AdvReac Type Severity Reaction Status Date / Time PCN Allergy Mild SWELLING Uncoded 12/28/16 19:58 - Medications Medications: Current Medications Famotidine (Pepcid) 20 mg IVP DAILY [facility] Last Admin: 12/30/16 09:59 Dose: 20 mg Sodium Chloride (Sodium Chloride 0.9%) 1,000 mls @ 125 mls/hr IV .Q8H [facility] Last Admin: 12/30/16 14:26 Dose: 125 mls/hr Aztreonam (Azactam 1 Gm) 100 mls @ 100 mls/hr IVPB Q8 [facility] PRN Reason: Protocol Stop: 01/06/17 14:46 Last Admin: 12/31/16 05:11 Dose: 100 mls/hr Metronidazole (Flagyl) 500 mg in 100 mls @ 100 mls/hr IVPB Q8 [facility] PRN Reason: Protocol Ibuprofen (Motrin Tab) 400 mg PO Q6H PRN PRN Reason: Fever >100.4 F Last Admin: 12/31/16 02:19 Dose: 400 mg Morphine Sulfate (Morphine) 2 mg IVP Q4 PRN PRN Reason: Pain, severe (8-10) Last Admin: 12/30/16 20:20 Dose: 2 mg Ondansetron HCl (Zofran Inj) 4 mg IVP Q6H PRN PRN Reason: Nausea/Vomiting Last Admin: 12/30/16 20:21 Dose: 4 mg Physical Exam - Constitutional Appears: No Acute Distress, Chronically Ill - Head Exam Head Exam: ATRAUMATIC, NORMAL INSPECTION, NORMOCEPHALIC - Eye Exam Eye Exam: EOMI, Normal appearance, PERRL. absent: Scleral icterus - ENT Exam ENT Exam: Mucous Membranes Moist - Respiratory Exam Respiratory Exam: Clear to Auscultation Bilateral. absent: Rales, Rhonchi, Wheezes - Cardiovascular Exam Cardiovascular Exam: REGULAR RHYTHM, +S1, +S2 - GI/Abdominal Exam GI & Abdominal Exam: Normal Bowel Sounds, Soft. absent: Distended, Rigid, Tenderness - Extremities Exam Extremities exam: Positive for: normal capillary refill. Negative for: calf tenderness, pedal edema - Neurological Exam Neurological exam: Alert, Oriented x3 - Psychiatric Exam Psychiatric exam: Normal Affect, Normal Mood - Skin Skin Exam: Dry, Warm Results - Vital Signs Recent Vital Signs: Last Vital Signs Temp 98.7 F 12/31/16 08:00 Pulse 59 L 12/31/16 08:00 Resp 20 12/31/16 08:00 BP 98/58 L 12/31/16 08:00 Pulse Ox 100 12/31/16 08:00 - Labs Result Diagrams: 12/31/16 06:45 12/31/16 06:45 Labs: Laboratory Results - last 24 hr 12/29/16 12/31/16 12/31/16 11:45 06:45 06:45 WBC 1.6 L* D RBC 3.79 Hgb 10.5 L Hct 31.4 L MCV 82.8 MCH 27.7 MCHC 33.4 RDW 15.3 H Plt Count 108 L MPV 10.8 Neutrophils % (Manual) 67 Band Neutrophils % 2 Lymphocytes % (Manual) 8 L Monocytes % (Manual) 17 H Eosinophils % (Manual) 6 H Platelet Evaluation Low Sodium 139 Potassium 3.5 L Chloride 112 H Carbon Dioxide 21 Anion Gap 10 BUN 8 Creatinine 0.7 Est GFR ( Amer) > 60 Est GFR (Non-Af Amer) > 60 Random Glucose 76 Calcium 7.6 L Total Bilirubin 0.4 AST 188 H ALT 169 H Alkaline Phosphatase 66 Total Protein 6.0 Albumin 2.3 L Globulin 3.7 Albumin/Globulin Ratio 0.6 L Anti-Mitochondrial Ab Negative Assessment & Plan - Assessment and Plan (Free Text) Plan: 46 AA M with Hx HIV and Hep B, now pancytopenic, s/p I&D for perianal abscess () - Check CD4, viral load - get record from outpt ID doc - start atovaquone 1500mg daily s/r/d/w Dr. Miles - Date & Time Date: 12/31/16 Time: 12:01 <Abdiaziz Miles - Last Filed: 12/31/16 15:34> Meds - Medications Medications: Current Medications Atovaquone (Mepron) 1,500 mg PO DAILY [facility] Last Admin: 12/31/16 14:59 Dose: Not Given Famotidine (Pepcid) 20 mg IVP DAILY [facility] Last Admin: 12/31/16 10:38 Dose: 20 mg Sodium Chloride (Sodium Chloride 0.9%) 1,000 mls @ 125 mls/hr IV .Q8H [facility] Last Admin: 12/30/16 14:26 Dose: 125 mls/hr Aztreonam (Azactam 1 Gm) 100 mls @ 100 mls/hr IVPB Q8 [facility] PRN Reason: Protocol Stop: 01/06/17 14:46 Last Admin: 12/31/16 13:04 Dose: 100 mls/hr Metronidazole (Flagyl) 500 mg in 100 mls @ 100 mls/hr IVPB Q8 [facility] PRN Reason: Protocol Last Admin: 12/31/16 14:50 Dose: 100 mls/hr Ibuprofen (Motrin Tab) 400 mg PO Q6H PRN PRN Reason: Fever >100.4 F Last Admin: 12/31/16 02:19 Dose: 400 mg Morphine Sulfate (Morphine) 2 mg IVP Q4 PRN PRN Reason: Pain, severe (8-10) Last Admin: 12/31/16 12:50 Dose: 2 mg Ondansetron HCl (Zofran Inj) 4 mg IVP Q6H PRN PRN Reason: Nausea/Vomiting Last Admin: 12/31/16 12:53 Dose: 4 mg Results - Vital Signs Recent Vital Signs: Last Vital Signs Temp 98.7 F 12/31/16 08:00 Pulse 59 L 12/31/16 08:00 Resp 20 12/31/16 08:00 BP 98/58 L 12/31/16 08:00 Pulse Ox 100 12/31/16 08:00 - Labs Result Diagrams: 12/31/16 06:45 12/31/16 06:45 Labs: Laboratory Results - last 24 hr 12/29/16 12/31/16 12/31/16 05:00 06:45 06:45 WBC 1.6 L* D RBC 3.79 Hgb 10.5 L Hct 31.4 L MCV 82.8 MCH 27.7 MCHC 33.4 RDW 15.3 H Plt Count 108 L MPV 10.8 Neutrophils % (Manual) 67 Band Neutrophils % 2 Lymphocytes % (Manual) 8 L Monocytes % (Manual) 17 H Eosinophils % (Manual) 6 H Platelet Evaluation Low Sodium 139 Potassium 3.5 L Chloride 112 H Carbon Dioxide 21 Anion Gap 10 BUN 8 Creatinine 0.7 Est GFR ( Amer) > 60 Est GFR (Non-Af Amer) > 60 Random Glucose 76 Calcium 7.6 L Total Bilirubin 0.4 AST 188 H ALT 169 H Alkaline Phosphatase 66 Total Protein 6.0 Albumin 2.3 L Globulin 3.7 Albumin/Globulin Ratio 0.6 L Absolute Lymphs (Flow) 145 L % CD4 Cells 1 L Absolute CD4 Count <20 L T-Help/Suppress Ratio 0.01 L % CD8 Cells 53 H Absolute CD8 Count 76 L T-Lymph Analys Comment See note Assessment & Plan - Assessment and Plan (Free Text) Plan: Infectious Diseases Attending Physician Attestation Patient seen and examined, discussed with certified ophthalmic medical technician. I have reviewed the pertinent clinical information for this patient. I agree with above findings. We will check with his previous HIV clinic to determine his most recent CD4 count and HIV virus load. Since he has pancytopenia, the probability of his CD4 count being less than 200 is high, therefore we will start Mepron for PJP prophylaxis. Will also get records to see which HIV meds he was taking. Will continue Azactam and Flagyl for now for the perirectal abscess which has been surgically drained.
[2016-12-31 11:03] LABS: % CD4 (T HELPER CELL) 1 Percent (30-61); % CD8 (SUPPRESSOR T CELL) 53 Percent (12-42); ABSOLUTE CD4 CELLS <20 Cells/mcL (490-1740); ABSOLUTE CD8 CELLS 76 Cells/mcL (180-1170); ABSOLUTE LYMPHOCYTES 145 Cells/mcL (850-3900); HELPER/SUPPRESSOR RATIO 0.01 Ratio (0.86-5.00)
[2016-12-31] MEDS: Morphine 2 mg/ml ISec IVP PRN (12:50)
--- NOTE | 2016-12-31 13:03 | CP.PCM.PN ---
<ChinoWanda - Last Filed: 12/31/16 12:59> Subjective - Date & Time of Evaluation Date of Evaluation: 12/31/16 Time of Evaluation: 12:59 - Subjective Subjective: Medicine Progress note for Dr. Wilson PT S&E at bedside. no acute events overnight. complaints of pain on area of incision and drainage. Patient denies F/C, N/V. Patient admits to diarrhea. AT time of visit, patient had a BM, loose, watery in character. Objective - Vital Signs/Intake and Output Vital Signs (last 24 hours): Temp Pulse Resp BP Pulse Ox 98.7 F 59 L 20 98/58 L 100 12/31/16 08:00 12/31/16 08:00 12/31/16 08:00 12/31/16 08:00 12/31/16 08:00 Intake and Output: 12/31/16 12/31/16 06:59 18:59 Intake Total 420 120 Output Total 1350 300 Balance -930 -180 - Medications Medications: Current Medications Famotidine (Pepcid) 20 mg IVP DAILY [facility] Last Admin: 12/31/16 10:38 Dose: 20 mg Sodium Chloride (Sodium Chloride 0.9%) 1,000 mls @ 125 mls/hr IV .Q8H [facility] Last Admin: 12/30/16 14:26 Dose: 125 mls/hr Aztreonam (Azactam 1 Gm) 100 mls @ 100 mls/hr IVPB Q8 [facility] PRN Reason: Protocol Stop: 01/06/17 14:46 Last Admin: 12/31/16 05:11 Dose: 100 mls/hr Metronidazole (Flagyl) 500 mg in 100 mls @ 100 mls/hr IVPB Q8 [facility] PRN Reason: Protocol Ibuprofen (Motrin Tab) 400 mg PO Q6H PRN PRN Reason: Fever >100.4 F Last Admin: 12/31/16 02:19 Dose: 400 mg Morphine Sulfate (Morphine) 2 mg IVP Q4 PRN PRN Reason: Pain, severe (8-10) Last Admin: 12/31/16 12:50 Dose: 2 mg Ondansetron HCl (Zofran Inj) 4 mg IVP Q6H PRN PRN Reason: Nausea/Vomiting Last Admin: 12/31/16 12:53 Dose: 4 mg - Labs Labs: 12/31/16 06:45 12/31/16 06:45 PT 14.7 Seconds (9.9-11.8) H 12/29/16 08:00 INR 1.36 (0.93-1.08) H 12/29/16 08:00 APTT 32.7 Seconds (23.7-30.8) H 12/29/16 08:00 - Constitutional Appears: Non-toxic, No Acute Distress, Chronically Ill - Head Exam Head Exam: NORMAL INSPECTION, NORMOCEPHALIC - Eye Exam Eye Exam: EOMI, Normal appearance - ENT Exam ENT Exam: Mucous Membranes Moist - Neck Exam Neck Exam: Full ROM, Normal Inspection - Respiratory Exam Respiratory Exam: absent: Accessory Muscle Use, Prolonged Expiratory Phase - Cardiovascular Exam Cardiovascular Exam: REGULAR RHYTHM. absent: Bradycardia, Tachycardia - GI/Abdominal Exam GI & Abdominal Exam: Soft. absent: Firm, Guarding, Tenderness - Exam Additional comments: perianal abscess s/p incision and drainage. site still has drainage. dressing changed at bedside per surgery team - Extremities Exam Extremities Exam: absent: Joint Swelling, Pedal Edema - Neurological Exam Neurological Exam: Alert, Awake, Oriented x3 - Psychiatric Exam Psychiatric exam: Flat Affect, Normal Mood - Skin Skin Exam: Dry, Normal Color, Warm Assessment and Plan - Assessment and Plan (Free Text) Assessment: 46 M presents with perirectal abscess s/p Incision and drainage POD #2, past medical history of HIV and Hep C. Diarrhea perirectal abscess HIV Hep C Plan: 1. Diarrhea Monitor I/Os F/u CMP IVF NS @ 125cc/hr 2. perirectal abscess Monitor CBC Monitor incision and drainage site for signs of induration, purulence, drainage daily dressing changes f/u wound culture possible discharge tomorrow 3. HIV Case management: [facility] care and set up for HIV Clinic 4. Hep C Monitor LFTs PPX: Pepcid and SCDs discussed with Dr. Steve Magana, DO PGY1 <Laureen Wilson - Last Filed: 12/31/16 16:47> Objective - Vital Signs/Intake and Output Vital Signs (last 24 hours): Temp Pulse Resp BP Pulse Ox 98.7 F 59 L 20 98/58 L 100 12/31/16 08:00 12/31/16 08:00 12/31/16 08:00 12/31/16 08:00 12/31/16 08:00 Intake and Output: 12/31/16 12/31/16 06:59 18:59 Intake Total 420 120 Output Total 1350 600 Balance -930 -480 - Medications Medications: Current Medications Atovaquone (Mepron) 1,500 mg PO DAILY [facility] Last Admin: 12/31/16 14:59 Dose: Not Given Famotidine (Pepcid) 20 mg IVP DAILY [facility] Last Admin: 12/31/16 10:38 Dose: 20 mg Sodium Chloride (Sodium Chloride 0.9%) 1,000 mls @ 125 mls/hr IV .Q8H [facility] Last Admin: 12/30/16 14:26 Dose: 125 mls/hr Aztreonam (Azactam 1 Gm) 100 mls @ 100 mls/hr IVPB Q8 [facility] PRN Reason: Protocol Stop: 01/06/17 14:46 Last Admin: 12/31/16 13:04 Dose: 100 mls/hr Metronidazole (Flagyl) 500 mg in 100 mls @ 100 mls/hr IVPB Q8 [facility] PRN Reason: Protocol Last Admin: 12/31/16 14:50 Dose: 100 mls/hr Ibuprofen (Motrin Tab) 400 mg PO Q6H PRN PRN Reason: Fever >100.4 F Last Admin: 12/31/16 02:19 Dose: 400 mg Lactobacillus Acidophilus (Bacid Acidophilus) 1 cap PO BID [facility] Morphine Sulfate (Morphine) 2 mg IVP Q4 PRN PRN Reason: Pain, severe (8-10) Last Admin: 12/31/16 12:50 Dose: 2 mg Ondansetron HCl (Zofran Inj) 4 mg IVP Q6H PRN PRN Reason: Nausea/Vomiting Last Admin: 12/31/16 12:53 Dose: 4 mg - Labs Labs: 12/31/16 06:45 12/31/16 06:45 PT 14.7 Seconds (9.9-11.8) H 12/29/16 08:00 INR 1.36 (0.93-1.08) H 12/29/16 08:00 APTT 32.7 Seconds (23.7-30.8) H 12/29/16 08:00 Attending/Attestation - Attestation I have personally seen and examined this patient.: Yes I have fully participated in the care of the patient.: Yes I have reviewed all pertinent clinical information, including history, physical exam and plan: Yes Notes (Text): 12/31/16 16:45 attending note; Patient seen and examined with resident. Patient is a 46-year-old male with a history of HIV, hepatitis B is admitted with perirectal abscess. Status post incision and drainage. Continue dressing change as per surgery. Continue IV azactam. history of HIV; currently not on any medications. ID evaluation Appreciated. Patient stated that his medications were stopped by ID physician in [place] because he was resistant to drugs. Does not want to give more information. awaiting wound culture results. pancytopenia; secondary to HIV. absolute CD4 count is less than 20. Dilated CBD; chronic. MRCP is negative for any stones or mass. Diarrhea; resolved. Stool studies is negative for ova and parasite. C. difficile is negative. Upon discharge the patient will follow-up with PMD of choice.
--- NOTE | 2016-12-31 13:08 | CP.PCM.PN ---
Subjective - Date & Time of Evaluation Date of Evaluation: 12/31/16 Time of Evaluation: 09:50 - Subjective Subjective: S&E at bedside, No N/V or abdominal pain. Pain at rectum better. Report diarrhea , no melena. Denies fever or chills, SOB or chest pain. Objective - Vital Signs/Intake and Output Vital Signs (last 24 hours): Temp Pulse Resp BP Pulse Ox 98.7 F 59 L 20 98/58 L 100 12/31/16 08:00 12/31/16 08:00 12/31/16 08:00 12/31/16 08:00 12/31/16 08:00 Intake and Output: 12/31/16 12/31/16 06:59 18:59 Intake Total 420 120 Output Total 1350 300 Balance -930 -180 - Medications Medications: Current Medications Famotidine (Pepcid) 20 mg IVP DAILY [facility] Last Admin: 12/31/16 10:38 Dose: 20 mg Sodium Chloride (Sodium Chloride 0.9%) 1,000 mls @ 125 mls/hr IV .Q8H [facility] Last Admin: 12/30/16 14:26 Dose: 125 mls/hr Aztreonam (Azactam 1 Gm) 100 mls @ 100 mls/hr IVPB Q8 [facility] PRN Reason: Protocol Stop: 01/06/17 14:46 Last Admin: 12/31/16 05:11 Dose: 100 mls/hr Metronidazole (Flagyl) 500 mg in 100 mls @ 100 mls/hr IVPB Q8 [facility] PRN Reason: Protocol Ibuprofen (Motrin Tab) 400 mg PO Q6H PRN PRN Reason: Fever >100.4 F Last Admin: 12/31/16 02:19 Dose: 400 mg Morphine Sulfate (Morphine) 2 mg IVP Q4 PRN PRN Reason: Pain, severe (8-10) Last Admin: 12/30/16 20:20 Dose: 2 mg Ondansetron HCl (Zofran Inj) 4 mg IVP Q6H PRN PRN Reason: Nausea/Vomiting Last Admin: 12/30/16 20:21 Dose: 4 mg - Labs Labs: 12/31/16 06:45 12/31/16 06:45 PT 14.7 Seconds (9.9-11.8) H 12/29/16 08:00 INR 1.36 (0.93-1.08) H 12/29/16 08:00 APTT 32.7 Seconds (23.7-30.8) H 12/29/16 08:00 - Constitutional Appears: No Acute Distress - Head Exam Head Exam: NORMOCEPHALIC - Eye Exam Eye Exam: Normal appearance. absent: Scleral icterus - ENT Exam ENT Exam: Mucous Membranes Moist - Neck Exam Neck Exam: Normal Inspection - Respiratory Exam Respiratory Exam: Decreased Breath Sounds, NORMAL BREATHING PATTERN. absent: Rales, Wheezes, Respiratory Distress - Cardiovascular Exam Cardiovascular Exam: +S1, +S2 - GI/Abdominal Exam GI & Abdominal Exam: Soft, Normal Bowel Sounds. absent: Distended, Guarding, Tenderness, Organomegaly, Rebound - Extremities Exam Extremities Exam: absent: Calf Tenderness, Pedal Edema - Neurological Exam Neurological Exam: Alert, Awake, Oriented x3 Assessment and Plan - Assessment and Plan (Free Text) Assessment: ASSESSMENT: Left perirectal abscess, status post incision and drainage, Chronic CBD dilations/p MRCP, noted same CBD dilitation, unremarkable pancreas, obstructing mass or stones Hepatitis B HIV H/O Shighella PLAN: on IV antibiotics contiue PPI on lactose/gluten free diet as per pt. request, denies allergy trend LFT, improving as per ID,surgery Discussed with patient regarding CBD dilitation.This is a chronic biliary dilation,the patient was told it was likely secondary to antiviral medication he was taking, he was evaluated before in [facility], and was [place] [facility] Likely can be followed outpatient. Will discuss with medical team Seen and discussed w/ Dr. Hidalgo.
[2016-12-31] MEDS: metroNIDAZOLE IV 500 mg/100 ml 500 MG/100 ML BAG IVPB SCH ×2 (14:50→21:41)
[2016-12-31] MEDS: Atovaquone 750 mg/5 ml Susp UD PO SCH ×2 (14:52→14:59)
[2016-12-31] MEDS: Lactobacillus Acidophilus 500 MU Cap PO SCH (17:58)
[2017-01-01] MEDS: Morphine 2 mg/ml ISec IVP PRN ×2 (00:22→20:04)
[2017-01-01] MEDS: Aztreonam 1 Gm in NS 100mL 100 ML IVPB SCH ×3 (05:14→21:45)
[2017-01-01] MEDS: metroNIDAZOLE IV 500 mg/100 ml 500 MG/100 ML BAG IVPB SCH ×2 (05:15→14:30)
--- NOTE | 2017-01-01 07:07 | CP.PCM.PN ---
<Farhana Contreras - Last Filed: 01/01/17 07:49> Subjective - Date & Time of Evaluation Date of Evaluation: 01/01/17 Time of Evaluation: 07:05 - Subjective Subjective: Infectious Diseases PGY-[address] Miles Patient Refuses Mepron for PJP prophylaxis, explained rationale, risk, benefit, choices, but pt refused Faxed to HIV clinic re: HIV meds he was taking Azactam and Flagyl for now for the perirectal abscess which was i/d Objective - Vital Signs/Intake and Output Vital Signs (last 24 hours): Temp Pulse Resp BP Pulse Ox 98.1 F 50 L 18 113/69 99 12/31/16 16:58 12/31/16 16:58 12/31/16 16:58 12/31/16 16:58 12/31/16 16:58 Intake and Output: 01/01/17 01/01/17 06:59 18:59 Intake Total 760 Output Total 800 Balance -40 - Medications Medications: Current Medications Atovaquone (Mepron) 1,500 mg PO DAILY [facility] Last Admin: 12/31/16 14:59 Dose: Not Given Famotidine (Pepcid) 20 mg IVP DAILY [facility] Last Admin: 12/31/16 10:38 Dose: 20 mg Aztreonam (Azactam 1 Gm) 100 mls @ 100 mls/hr IVPB Q8 [facility] PRN Reason: Protocol Stop: 01/06/17 14:46 Last Admin: 01/01/17 05:14 Dose: 100 mls/hr Metronidazole (Flagyl) 500 mg in 100 mls @ 100 mls/hr IVPB Q8 [facility] PRN Reason: Protocol Last Admin: 01/01/17 05:15 Dose: 100 mls/hr Ibuprofen (Motrin Tab) 400 mg PO Q6H PRN PRN Reason: Fever >100.4 F Last Admin: 12/31/16 02:19 Dose: 400 mg Lactobacillus Acidophilus (Bacid Acidophilus) 1 cap PO BID [facility] Last Admin: 12/31/16 17:58 Dose: 1 cap Morphine Sulfate (Morphine) 2 mg IVP Q4 PRN PRN Reason: Pain, severe (8-10) Last Admin: 01/01/17 00:22 Dose: 2 mg Ondansetron HCl (Zofran Inj) 4 mg IVP Q6H PRN PRN Reason: Nausea/Vomiting Last Admin: 01/01/17 00:21 Dose: 4 mg - Labs Labs: 12/31/16 06:45 12/31/16 06:45 PT 14.7 Seconds (9.9-11.8) H 12/29/16 08:00 INR 1.36 (0.93-1.08) H 12/29/16 08:00 APTT 32.7 Seconds (23.7-30.8) H 12/29/16 08:00 - Constitutional Appears: No Acute Distress - Head Exam Head Exam: ATRAUMATIC, NORMAL INSPECTION, NORMOCEPHALIC - Eye Exam Eye Exam: EOMI, Normal appearance, PERRL. absent: Scleral icterus Pupil Exam: NORMAL ACCOMODATION - ENT Exam ENT Exam: Mucous Membranes Moist - Neck Exam Neck Exam: Normal Inspection - Respiratory Exam Respiratory Exam: Clear to Ausculation Bilateral. absent: Rales, Rhonchi, Wheezes - Cardiovascular Exam Cardiovascular Exam: REGULAR RHYTHM, +S1, +S2 - GI/Abdominal Exam GI & Abdominal Exam: Soft, Normal Bowel Sounds. absent: Guarding, Rigid, Tenderness - Extremities Exam Extremities Exam: Normal Capillary Refill. absent: Calf Tenderness, Pedal Edema - Neurological Exam Neurological Exam: Alert, Awake - Psychiatric Exam Psychiatric exam: Normal Affect, Normal Mood - Skin Skin Exam: Dry, Warm Assessment and Plan - Assessment and Plan (Free Text) Plan: 46 AA M with Hx HIV and Hep B, now pancytopenic, s/p I&D for perianal abscess () CD4 < 20 Chronic diarrhea - fecal leukocyte negative, doubt inflammatory etiology Hx cryptosporodiosis, Shigella, syphillis Hx Chronic pancreatitis Hx submandibular abscess s/p I&D Last colonoscopy 2006 - hemorrhoid, biopsy PAS +ve cryptosporodium parvum Hx Shigellosis at [facility], October 2016, finishing 21 day of levaquin on No oral thrush - Pending HIV, HepB viral load, Toxo ab, AFB on blood for MAC, Quantiferon gold , RPR - start atovaquone 1500mg daily, but pt refuses Mepron for PJP prophylaxis, explained rationale, risk, benefit, choices - Faxed to HIV clinic re: HIV meds he was taking - Azactam and Flagyl for now for the perirectal abscess which was i/d - Due to CD4 count, should add zithromycin for MAC, gancyclovir for CMV, diflucan for crytococcosis prophylaxis. - Discussed with patient about his immune status, viral load, risk/benefit/ altrenative for continual treatment and prpophylasix. Pt understand and appreciate the facts. Pt has a sound mind and states that he refuses and resorted to IV vitamins and mineral that he received weekly at Dr. Reed. At home he will take silver antibiotics 2 teaspon QID prescripted by Dr. Reed. Pt said that he will continue to follow up with Dr. Reed in [address] Dominguez in future Will s/r/d/w Dr. Miles <Abdiaziz Miles S - Last Filed: 01/01/17 11:30> Objective - Vital Signs/Intake and Output Vital Signs (last 24 hours): Temp Pulse Resp BP Pulse Ox 98.4 F 59 L 20 104/64 99 01/01/17 07:54 01/01/17 07:54 01/01/17 07:54 01/01/17 07:54 01/01/17 07:54 Intake and Output: 01/01/17 01/01/17 06:59 18:59 Intake Total 760 Output Total 800 Balance -40 - Medications Medications: Current Medications Atovaquone (Mepron) 1,500 mg PO DAILY [facility] Last Admin: 01/01/17 10:43 Dose: Not Given Famotidine (Pepcid) 20 mg IVP DAILY [facility] Last Admin: 01/01/17 10:42 Dose: 20 mg Aztreonam (Azactam 1 Gm) 100 mls @ 100 mls/hr IVPB Q8 [facility] PRN Reason: Protocol Stop: 01/06/17 14:46 Last Admin: 01/01/17 05:14 Dose: 100 mls/hr Metronidazole (Flagyl) 500 mg in 100 mls @ 100 mls/hr IVPB Q8 [facility] PRN Reason: Protocol Last Admin: 01/01/17 05:15 Dose: 100 mls/hr Ibuprofen (Motrin Tab) 400 mg PO Q6H PRN PRN Reason: Fever >100.4 F Last Admin: 01/01/17 08:15 Dose: 400 mg Lactobacillus Acidophilus (Bacid Acidophilus) 1 cap PO BID [facility] Last Admin: 01/01/17 10:42 Dose: 1 cap Morphine Sulfate (Morphine) 2 mg IVP Q4 PRN PRN Reason: Pain, severe (8-10) Last Admin: 01/01/17 00:22 Dose: 2 mg Ondansetron HCl (Zofran Inj) 4 mg IVP Q6H PRN PRN Reason: Nausea/Vomiting Last Admin: 01/01/17 00:21 Dose: 4 mg - Labs Labs: 01/01/17 06:50 01/01/17 07:00 PT 14.7 Seconds (9.9-11.8) H 12/29/16 08:00 INR 1.36 (0.93-1.08) H 12/29/16 08:00 APTT 32.7 Seconds (23.7-30.8) H 12/29/16 08:00 Assessment and Plan - Assessment and Plan (Free Text) Plan: Infectious Diseases Attending Physician Attestation Patient seen and examined, discussed with medical education specialist. I have reviewed all the pertinent clinical information for this patient. I agree with the above findings, assessment and plan. In addition, we will continue to this patient on Azactam and Flagyl for this patient perirectal abscess. He is also HIV/AIDS with low CD4 count (<20) - we have started Atovaquone and Zithromax 1200 mg qweekly (for PJP and DEANNA prophylaxis), follow up serum Crypt Ag, RPR, blood cx for AFB, quantiferon gold TB test. Will try to get ART regimen of patient from his most recent clinic visit. These should be addressed prior to any discharge plan. Patient also has chronic Hepatitis B infection but we will not start therapy for this until we know his previous antiretroviral therapy regimen.
[2017-01-01 07:11] LABS: EOS # 0.1 (0.0-0.7); EOS % 10.5 % (1.5-5.0); GRAN # 0.65 (1.4-6.5); GRAN % 52.4 % (50.0-68.0); HEMOGLOBIN 11.8 gm/dL (14.0-18.0); LYMPH # 0.2 (1.2-3.4); LYMPH % 17.7 % (22.0-35.0); MEAN CELL VOLUME 81.5 fL (80.0-105.0); MEAN CORPUSCULAR HGB CONC 34.3 g/dl (31.0-37.0); MEAN PLATELET VOLUME 10.7 fl (7.0-11.0); MONO # 0.2 (0.1-0.6); MONO % 19.4 % (1.0-6.0); PLATELET COUNT 118 10^3/uL (120.0-450.0); RBC 4.22 10^6/uL (3.5-6.1); RED CELL DISTRIBUTION WIDTH 15.1 % (11.5-14.5)
[2017-01-01 07:37] LABS: WHITE BLOOD COUNT 1.2 10^3/ul (4.5-11.0)
[2017-01-01 07:39] LABS: ALB/GLOB RATIO 0.7 (1.1-1.8); ALBUMIN 2.6 g/dL (3.0-4.8); ALT/SGPT 190 U/L (7-56); AST/SGOT 203 U/L (15-59); BLOOD UREA NITROGEN 7 mg/dL (7-21); CALCIUM 7.7 mg/dL (8.4-10.5); GFR AFRICAN-AMERICAN > 60; GFR NON-AFRICAN AMERICAN > 60
[2017-01-01] MEDS ORDERED: Potassium Chloride 20 mEq ER Tab PO STA (07:57)
[2017-01-01] MEDS: Lactobacillus Acidophilus 500 MU Cap PO SCH ×2 (10:42→18:23)
[2017-01-01] MEDS: Atovaquone 750 mg/5 ml Susp UD PO SCH (10:43)
--- NOTE | 2017-01-01 10:45 | CP.PCM.PN ---
<ChinoWanda - Last Filed: 01/01/17 11:03> Subjective - Date & Time of Evaluation Date of Evaluation: 01/01/17 Time of Evaluation: 10:41 - Subjective Subjective: PT S&E and examined at bedside. JAGRUTI. Patient still has diarrhea. Patient admits to pain in the area of incision and drainage. Fistula still draining on the R gluteal region. Denies F/C, N/V, Constipation. Patient states he wants to go home today. Will follow up with PMD. Waiting to hear back about insurance Medicare Part B. Objective - Vital Signs/Intake and Output Vital Signs (last 24 hours): Temp Pulse Resp BP Pulse Ox 98.4 F 59 L 20 104/64 99 01/01/17 07:54 01/01/17 07:54 01/01/17 07:54 01/01/17 07:54 01/01/17 07:54 Intake and Output: 01/01/17 01/01/17 06:59 18:59 Intake Total 760 Output Total 800 Balance -40 - Medications Medications: Current Medications Atovaquone (Mepron) 1,500 mg PO DAILY [facility] Last Admin: 12/31/16 14:59 Dose: Not Given Famotidine (Pepcid) 20 mg IVP DAILY [facility] Last Admin: 12/31/16 10:38 Dose: 20 mg Aztreonam (Azactam 1 Gm) 100 mls @ 100 mls/hr IVPB Q8 [facility] PRN Reason: Protocol Stop: 01/06/17 14:46 Last Admin: 01/01/17 05:14 Dose: 100 mls/hr Metronidazole (Flagyl) 500 mg in 100 mls @ 100 mls/hr IVPB Q8 [facility] PRN Reason: Protocol Last Admin: 01/01/17 05:15 Dose: 100 mls/hr Ibuprofen (Motrin Tab) 400 mg PO Q6H PRN PRN Reason: Fever >100.4 F Last Admin: 01/01/17 08:15 Dose: 400 mg Lactobacillus Acidophilus (Bacid Acidophilus) 1 cap PO BID [facility] Last Admin: 12/31/16 17:58 Dose: 1 cap Morphine Sulfate (Morphine) 2 mg IVP Q4 PRN PRN Reason: Pain, severe (8-10) Last Admin: 01/01/17 00:22 Dose: 2 mg Ondansetron HCl (Zofran Inj) 4 mg IVP Q6H PRN PRN Reason: Nausea/Vomiting Last Admin: 01/01/17 00:21 Dose: 4 mg - Labs Labs: 01/01/17 06:50 01/01/17 07:00 PT 14.7 Seconds (9.9-11.8) H 12/29/16 08:00 INR 1.36 (0.93-1.08) H 12/29/16 08:00 APTT 32.7 Seconds (23.7-30.8) H 12/29/16 08:00 - Constitutional Appears: Non-toxic, No Acute Distress - Head Exam Head Exam: NORMAL INSPECTION, NORMOCEPHALIC - Eye Exam Eye Exam: EOMI, Normal appearance Pupil Exam: NORMAL ACCOMODATION - ENT Exam ENT Exam: Mucous Membranes Moist - Neck Exam Neck Exam: Full ROM - Respiratory Exam Respiratory Exam: NORMAL BREATHING PATTERN. absent: Accessory Muscle Use, Prolonged Expiratory Phase, Respiratory Distress - Cardiovascular Exam Cardiovascular Exam: REGULAR RHYTHM. absent: Bradycardia, Tachycardia - GI/Abdominal Exam GI & Abdominal Exam: Soft, Hypoactive Bowel Sounds. absent: Tenderness - Extremities Exam Extremities Exam: Full ROM. absent: Calf Tenderness, Joint Swelling, Pedal Edema - Neurological Exam Neurological Exam: Alert, Awake, Normal Gait, Oriented x3 - Psychiatric Exam Psychiatric exam: Normal Affect, Normal Mood - Skin Skin Exam: Dry, Normal Color, Warm Assessment and Plan - Assessment and Plan (Free Text) Assessment: 46 M presents with perirectal abscess and right gluteal fistula. s/p Incision and drainage POD#3 Plan: 1. Diarrhea Monitor I/Os F/u CMP 2. Perirectal abscess Monitor CBC Monitor incision and drainage site for signs of induration, purulence, drainage daily dressing changes surgery team signed off on patient E. coli positive wound culture, sensitive to Bactrim 3. HIV/AIDs ID suggestions: Azactam and Flagyl for now for the perirectal abscess Patient is to finish one more day of IV abx. DC home with PO abx. CD4 <20 Due to CD4 count: suggested to add Zithromax for MAC, Gancyclovir for CMV, Diflucan for Crytococcosis prophylaxis monitor CBCs 4. Hep C Monitor LFTs PPX: Pepcid and SCDs possible discharge tomorrow, patient wants to leave today. discussed with Dr. Steve Magana, DO PGY1 <Laureen Wilson - Last Filed: 01/01/17 13:08> Objective - Vital Signs/Intake and Output Vital Signs (last 24 hours): Temp Pulse Resp BP Pulse Ox 98.4 F 59 L 20 104/64 99 01/01/17 07:54 01/01/17 07:54 01/01/17 07:54 01/01/17 07:54 01/01/17 07:54 Intake and Output: 01/01/17 01/01/17 06:59 18:59 Intake Total 760 Output Total 800 Balance -40 - Medications Medications: Current Medications Atovaquone (Mepron) 1,500 mg PO DAILY [facility] Last Admin: 01/01/17 10:43 Dose: Not Given Famotidine (Pepcid) 20 mg IVP DAILY [facility] Last Admin: 01/01/17 10:42 Dose: 20 mg Aztreonam (Azactam 1 Gm) 100 mls @ 100 mls/hr IVPB Q8 [facility] PRN Reason: Protocol Stop: 01/06/17 14:46 Last Admin: 01/01/17 05:14 Dose: 100 mls/hr Metronidazole (Flagyl) 500 mg in 100 mls @ 100 mls/hr IVPB Q8 [facility] PRN Reason: Protocol Last Admin: 01/01/17 05:15 Dose: 100 mls/hr Ibuprofen (Motrin Tab) 400 mg PO Q6H PRN PRN Reason: Fever >100.4 F Last Admin: 01/01/17 08:15 Dose: 400 mg Lactobacillus Acidophilus (Bacid Acidophilus) 1 cap PO BID [facility] Last Admin: 01/01/17 10:42 Dose: 1 cap Morphine Sulfate (Morphine) 2 mg IVP Q4 PRN PRN Reason: Pain, severe (8-10) Last Admin: 01/01/17 00:22 Dose: 2 mg Ondansetron HCl (Zofran Inj) 4 mg IVP Q6H PRN PRN Reason: Nausea/Vomiting Last Admin: 01/01/17 00:21 Dose: 4 mg - Labs Labs: 01/01/17 06:50 01/01/17 07:00 PT 14.7 Seconds (9.9-11.8) H 12/29/16 08:00 INR 1.36 (0.93-1.08) H 12/29/16 08:00 APTT 32.7 Seconds (23.7-30.8) H 12/29/16 08:00 Attending/Attestation - Attestation I have personally seen and examined this patient.: Yes I have fully participated in the care of the patient.: Yes I have reviewed all pertinent clinical information, including history, physical exam and plan: Yes Notes (Text): 01/01/17 13:05 attending note; Patient seen and examined with resident. Patient is a 46-year-old male with a history of HIV, hepatitis B is admitted with perirectal abscess. Status post incision and drainage. Continue dressing change as per surgery. Continue IV azactam. history of HIV; currently not on any medications. ID evaluation Appreciated. Patient stated that his medications were stopped by ID physician in [place] because he was resistant to drugs. Does not want to give more information. CD4 count is <20. Started on Atovoqone And azithromycin. Wound culture is positive for Escherichia coli resistant to quinolone's. Discussed with ID in detail. Advised to continue azactam and Flagyl. pancytopenia; secondary to HIV. absolute CD4 count is less than 20. reluctant to use po bactrim since the patient is pancytopenic. Dilated CBD; chronic. MRCP is negative for any stones or mass. Diarrhea; resolved. Stool studies is negative for ova and parasite. C. difficile is negative. Upon discharge the patient will follow-up with PMD of choice. Patient is extensively educated about his HIV, immunocompromised status, need for follow-up.
--- NOTE | 2017-01-01 12:06 | CP.PCM.PN ---
Subjective - Date & Time of Evaluation Date of Evaluation: 01/01/17 Time of Evaluation: 11:15 - Subjective Subjective: Seen and examined at bedside, OOB to chair, no new complaints. Denies N/V or abdominal pain. No fever or chills. No acute overnight events reported. c Objective - Vital Signs/Intake and Output Vital Signs (last 24 hours): Temp Pulse Resp BP Pulse Ox 98.4 F 59 L 20 104/64 99 01/01/17 07:54 01/01/17 07:54 01/01/17 07:54 01/01/17 07:54 01/01/17 07:54 Intake and Output: 01/01/17 01/01/17 06:59 18:59 Intake Total 760 Output Total 800 Balance -40 - Medications Medications: Current Medications Atovaquone (Mepron) 1,500 mg PO DAILY [facility] Last Admin: 01/01/17 10:43 Dose: Not Given Famotidine (Pepcid) 20 mg IVP DAILY [facility] Last Admin: 01/01/17 10:42 Dose: 20 mg Aztreonam (Azactam 1 Gm) 100 mls @ 100 mls/hr IVPB Q8 [facility] PRN Reason: Protocol Stop: 01/06/17 14:46 Last Admin: 01/01/17 05:14 Dose: 100 mls/hr Metronidazole (Flagyl) 500 mg in 100 mls @ 100 mls/hr IVPB Q8 [facility]LAQUITA PRN Reason: Protocol Last Admin: 01/01/17 05:15 Dose: 100 mls/hr Ibuprofen (Motrin Tab) 400 mg PO Q6H PRN PRN Reason: Fever >100.4 F Last Admin: 01/01/17 08:15 Dose: 400 mg Lactobacillus Acidophilus (Bacid Acidophilus) 1 cap PO BID [facility] Last Admin: 01/01/17 10:42 Dose: 1 cap Morphine Sulfate (Morphine) 2 mg IVP Q4 PRN PRN Reason: Pain, severe (8-10) Last Admin: 01/01/17 00:22 Dose: 2 mg Ondansetron HCl (Zofran Inj) 4 mg IVP Q6H PRN PRN Reason: Nausea/Vomiting Last Admin: 01/01/17 00:21 Dose: 4 mg - Labs Labs: 01/01/17 06:50 01/01/17 07:00 PT 14.7 Seconds (9.9-11.8) H 12/29/16 08:00 INR 1.36 (0.93-1.08) H 12/29/16 08:00 APTT 32.7 Seconds (23.7-30.8) H 12/29/16 08:00 - Constitutional Appears: No Acute Distress - Head Exam Head Exam: NORMAL INSPECTION - Eye Exam Eye Exam: Normal appearance. absent: Scleral icterus - ENT Exam ENT Exam: Mucous Membranes Moist - Neck Exam Neck Exam: Normal Inspection - Respiratory Exam Respiratory Exam: NORMAL BREATHING PATTERN. absent: Respiratory Distress - Cardiovascular Exam Cardiovascular Exam: +S1, +S2 - GI/Abdominal Exam GI & Abdominal Exam: Soft, Normal Bowel Sounds. absent: Guarding, Tenderness, Rebound - Extremities Exam Extremities Exam: absent: Calf Tenderness, Pedal Edema - Neurological Exam Neurological Exam: Alert, Awake, Oriented x3 - Skin Skin Exam: Dry, Warm Assessment and Plan - Assessment and Plan (Free Text) Assessment: ASSESSMENT: Left perirectal abscess, status post incision and drainage, Chronic CBD dilations/p MRCP, noted same CBD dilitation, unremarkable pancreas, obstructing mass or stones Hepatitis B HIV H/O Shighella PLAN: on IV antibiotics contiue PPI on lactose/gluten free diet as per pt. request, denies allergy trend LFT, improving as per ID,surgery Discuss with patient regarding chronic biliary dilation, and evaluation, patient reports it is a chronic finding, he is concerned about his CD4 count that he reports is always low and that he is immune to current available antiviral and that he was informed of a new antiviral that he may be able to take and is awaiting for this to come into the market. He would consider further workup after resolution of current problem unless a life threatening situation would occur. He was recommended to be sent home on discharge with copies of his MRCP. Recommend him to FU in outpatient GI clinic [facility].. Seen and discussed w/ Dr. Hidalgo.
[2017-01-01] MEDS: Azithromycin 200 mg/5 ml Susp (22.5 ml) PO SCH ×2 (14:37→14:44)
[2017-01-02] MEDS: metroNIDAZOLE IV 500 mg/100 ml 500 MG/100 ML BAG IVPB SCH ×4 (00:16→21:53)
[2017-01-02] MEDS: Morphine 2 mg/ml ISec IVP PRN (05:24)
[2017-01-02] MEDS: Aztreonam 1 Gm in NS 100mL 100 ML IVPB SCH ×3 (05:58→23:30)
--- NOTE | 2017-01-02 06:13 | CP.PCM.PN ---
<Wanda Magana - Last Filed: 01/02/17 16:38> Subjective - Date & Time of Evaluation Date of Evaluation: 01/02/17 Time of Evaluation: 10:00 - Subjective Subjective: Patient seen and examined at bedside. JAGRUTI. Patient states he understands the current plan and continues to state that IV antibiotics are the reason why he's feeling unwell with diarrhea. Patient denies F/c, N/V, Constipation. Patient was placed on neutropenic precaution for ANC 0.6 yesterday. Patient is doing fine in the room. Patient continues to state discomfort and distress when the issue of prophylactic antibiotic is brought up. He states he understands, but advocates for the unconventional/integrative medication. Patient was told that his beliefs are respected, however, antibiotic prophylaxis would be beneficial to preventing an AIDS infection (ie: PCP, MAC) Objective - Vital Signs/Intake and Output Vital Signs (last 24 hours): Temp Pulse Resp BP Pulse Ox 97.6 F 64 20 99/69 L 99 01/01/17 16:00 01/01/17 16:00 01/01/17 16:00 01/01/17 16:00 01/01/17 16:00 Intake and Output: 01/01/17 01/02/17 18:59 06:59 Intake Total 600 600 Output Total 500 450 Balance 100 150 - Medications Medications: Current Medications Atovaquone (Mepron) 1,500 mg PO DAILY [facility] Last Admin: 01/01/17 10:43 Dose: Not Given Azithromycin (Zithromax) 200 mg PO Q7D [facility] PRN Reason: Protocol Last Admin: 01/01/17 14:44 Dose: Not Given Azithromycin (Zithromax) 1,000 mg PO Q7D [facility] PRN Reason: Protocol Last Admin: 01/01/17 14:44 Dose: Not Given Famotidine (Pepcid) 20 mg IVP DAILY [facility] Last Admin: 01/01/17 10:42 Dose: 20 mg Aztreonam (Azactam 1 Gm) 100 mls @ 100 mls/hr IVPB Q8 [facility] PRN Reason: Protocol Stop: 01/06/17 14:46 Last Admin: 01/02/17 05:58 Dose: 100 mls/hr Metronidazole (Flagyl) 500 mg in 100 mls @ 100 mls/hr IVPB Q8 [facility] PRN Reason: Protocol Last Admin: 01/02/17 05:58 Dose: 100 mls/hr Ibuprofen (Motrin Tab) 400 mg PO Q6H PRN PRN Reason: Fever >100.4 F Last Admin: 01/01/17 08:15 Dose: 400 mg Lactobacillus Acidophilus (Bacid Acidophilus) 1 cap PO BID [facility] Last Admin: 01/01/17 18:23 Dose: Not Given Morphine Sulfate (Morphine) 2 mg IVP Q4H PRN PRN Reason: Pain, severe (8-10) Last Admin: 01/02/17 05:24 Dose: 2 mg Ondansetron HCl (Zofran Inj) 4 mg IVP Q6H PRN PRN Reason: Nausea/Vomiting Last Admin: 01/02/17 05:24 Dose: 4 mg - Labs Labs: 01/01/17 06:50 01/01/17 07:00 PT 14.7 Seconds (9.9-11.8) H 12/29/16 08:00 INR 1.36 (0.93-1.08) H 12/29/16 08:00 APTT 32.7 Seconds (23.7-30.8) H 12/29/16 08:00 - Constitutional Appears: Non-toxic, No Acute Distress - Head Exam Head Exam: NORMAL INSPECTION - Eye Exam Eye Exam: EOMI, Normal appearance - ENT Exam ENT Exam: Mucous Membranes Moist - Neck Exam Neck Exam: Full ROM - Respiratory Exam Respiratory Exam: Clear to Ausculation Bilateral, NORMAL BREATHING PATTERN. absent: Accessory Muscle Use, Rhonchi, Wheezes, Respiratory Distress - Cardiovascular Exam Cardiovascular Exam: REGULAR RHYTHM. absent: Bradycardia, Tachycardia - GI/Abdominal Exam GI & Abdominal Exam: Soft, Tenderness. absent: Distended, Firm, Mass, Pulsatile Mass - Extremities Exam Extremities Exam: Full ROM. absent: Pedal Edema - Neurological Exam Neurological Exam: Alert, Awake, Normal Gait - Psychiatric Exam Psychiatric exam: Agitated, Flat Affect - Skin Skin Exam: Dry, Normal Color, Warm Assessment and Plan - Assessment and Plan (Free Text) Assessment: 46 M presents with rectal abscess s/p Incision and drainage POD #4 PMH HIV/AIDS, Hep B, noncompliance with HIV medication (HAART) Plan: perirectal abscess s/p incision and drainage pod#4 dressing changes monitor for signs of infection, increased drainage, increased induration, pain Pain: Morphine 2 mg IVP Q4H PRN Motrin 400mg POQ6H PRN Zofran 4mg IVP Q6H PRN ID: CD4<20, E coli positive wound culture from perirectal abscess Atovaquone 1500 mgPOQD Azithromycin 1200 mg POQ7D f/u CMP f/u CBC Consults: GI: Dr. Hidalgo for perirectal abscess and dilated CBD General Surgery: Dr. Baig for perirectal abscess and dilated CBD ID: Dr. Miles HIV, Hep B, perirectal abscess Labs awaiting quantiferon TB: Toxoplasma AB: Hep B virus Panel: AFB culture: Labs resulted: RPR: nonreactive Cryptococcus Ag: Not detected HIV RNA Qnt (RT PCR) 4.99 Hep Bs Ag: Positive Hep BsAg Neutralization: Positive Hep Bc IgM Ab: Negative Hep C: Negative Rectal Abscess, resolved: Finish atovaquone Diet: supplements GI PPX: Pepcid DVT PPX: SCD Physical therapy eval and tx <Jamin MARINO,[facility] - Last Filed: 01/02/17 17:31> Objective - Vital Signs/Intake and Output Vital Signs (last 24 hours): Temp Pulse Resp BP Pulse Ox 98.6 F 71 20 111/74 100 01/02/17 16:22 01/02/17 16:22 01/02/17 16:22 01/02/17 16:22 01/02/17 16:22 Intake and Output: 01/02/17 01/02/17 06:59 18:59 Intake Total 600 540 Output Total 450 Balance 150 540 - Medications Medications: Current Medications Ascorbic Acid (Vitamin C 500 Mg Tab) 500 mg PO DAILY [facility] Atovaquone (Mepron) 1,500 mg PO DAILY [facility] Last Admin: 01/02/17 10:39 Dose: Not Given Azithromycin (Zithromax) 200 mg PO Q7D [facility] PRN Reason: Protocol Last Admin: 01/01/17 14:44 Dose: Not Given Azithromycin (Zithromax) 1,000 mg PO Q7D [facility] PRN Reason: Protocol Last Admin: 01/01/17 14:44 Dose: Not Given Camphor/Menthol (Bengay) 0 gm TOP QID PRN PRN Reason: Muscle spasm Famotidine (Pepcid) 20 mg IVP DAILY [facility] Last Admin: 01/02/17 10:27 Dose: 20 mg Aztreonam (Azactam 1 Gm) 100 mls @ 100 mls/hr IVPB Q8 [facility] PRN Reason: Protocol Stop: 01/06/17 14:46 Last Admin: 01/02/17 13:37 Dose: 100 mls/hr Metronidazole (Flagyl) 500 mg in 100 mls @ 100 mls/hr IVPB Q8 [facility] PRN Reason: Protocol Last Admin: 01/02/17 15:19 Dose: 100 mls/hr Ibuprofen (Motrin Tab) 400 mg PO Q6H PRN PRN Reason: Fever >100.4 F Last Admin: 01/01/17 08:15 Dose: 400 mg Lactobacillus Acidophilus (Bacid Acidophilus) 1 cap PO BID [facility] Last Admin: 01/02/17 10:27 Dose: 1 cap Morphine Sulfate (Morphine) 2 mg IVP Q4H PRN PRN Reason: Pain, severe (8-10) Last Admin: 01/02/17 05:24 Dose: 2 mg Ondansetron HCl (Zofran Inj) 4 mg IVP Q6H PRN PRN Reason: Nausea/Vomiting Last Admin: 01/02/17 05:24 Dose: 4 mg - Labs Labs: 01/02/17 07:00 01/02/17 07:00 PT 14.7 Seconds (9.9-11.8) H 12/29/16 08:00 INR 1.36 (0.93-1.08) H 12/29/16 08:00 APTT 32.7 Seconds (23.7-30.8) H 12/29/16 08:00 Attending/Attestation - Attestation I have personally seen and examined this patient.: Yes I have fully participated in the care of the patient.: Yes I have reviewed all pertinent clinical information, including history, physical exam and plan: Yes Notes (Text): 01/02/17 17:28 Patient was seen and examined with medical information officer. Patient is a 46-year-old male with a history of HIV, hepatitis B is admitted with perirectal abscess.He is SP incision and drainage.Wound culture is positive for Escherichia coli resistant to quinolone's.Discussed with ID in detail. Advised to continue azactam and Flagyl for one more days , then will stop IV antibiotics.( 7 days treatment) History of HIV; currently not on any medications. ID evaluation Appreciated. Patient stated that his medications were stopped by ID physician in [place] because he was resistant to drugs. CD4 count is <20. Cryptocal antigen is negative, will need PCP and DEANNA Prophylaxis Pancytopenia; secondary to HIV. absolute CD4 count is less than 20. Dilated CBD; chronic. MRCP is negative for any stones or mass. Diarrhea; resolved. Stool studies is negative for ova and parasite. C. difficile is negative. Management plan was discussed in detail with patient.Education was provided. Prognosis is guarded.
[2017-01-02 07:38] LABS: HEMOGLOBIN 11.6 gm/dL (14.0-18.0); MEAN CELL VOLUME 80.3 fL (80.0-105.0); MEAN CORPUSCULAR HEMOGLOBIN 28.2 pg (25.0-35.0); MEAN PLATELET VOLUME 10.9 fl (7.0-11.0); PLATELET COUNT 125 10^3/uL (120.0-450.0); RBC 4.12 10^6/uL (3.5-6.1); RED CELL DISTRIBUTION WIDTH 14.9 % (11.5-14.5)
--- NOTE | 2017-01-02 07:50 | CP.PCM.PN ---
<Farhana Contreras - Last Filed: 01/02/17 09:10> Subjective - Date & Time of Evaluation Date of Evaluation: 01/02/17 Time of Evaluation: 07:49 - Subjective Subjective: PGY-[address] Miles Pt is in isolation. Pt states that he had telephone conference with Dr. raman re: IV vit C Pt concern PO abx for perirectal abcess and want to go home Otherwise, NAC. Chronic diarrhea Objective - Vital Signs/Intake and Output Vital Signs (last 24 hours): Temp Pulse Resp BP Pulse Ox 97.6 F 64 20 99/69 L 99 01/01/17 16:00 01/01/17 16:00 01/01/17 16:00 01/01/17 16:00 01/01/17 16:00 Intake and Output: 01/02/17 01/02/17 06:59 18:59 Intake Total 600 Output Total 450 Balance 150 - Medications Medications: Current Medications Atovaquone (Mepron) 1,500 mg PO DAILY [facility] Last Admin: 01/01/17 10:43 Dose: Not Given Azithromycin (Zithromax) 200 mg PO Q7D [facility] PRN Reason: Protocol Last Admin: 01/01/17 14:44 Dose: Not Given Azithromycin (Zithromax) 1,000 mg PO Q7D [facility] PRN Reason: Protocol Last Admin: 01/01/17 14:44 Dose: Not Given Famotidine (Pepcid) 20 mg IVP DAILY [facility] Last Admin: 01/01/17 10:42 Dose: 20 mg Aztreonam (Azactam 1 Gm) 100 mls @ 100 mls/hr IVPB Q8 [facility] PRN Reason: Protocol Stop: 01/06/17 14:46 Last Admin: 01/02/17 05:58 Dose: 100 mls/hr Metronidazole (Flagyl) 500 mg in 100 mls @ 100 mls/hr IVPB Q8 [facility] PRN Reason: Protocol Last Admin: 01/02/17 05:58 Dose: 100 mls/hr Ibuprofen (Motrin Tab) 400 mg PO Q6H PRN PRN Reason: Fever >100.4 F Last Admin: 01/01/17 08:15 Dose: 400 mg Lactobacillus Acidophilus (Bacid Acidophilus) 1 cap PO BID [facility] Last Admin: 08/03/17 18:23 Dose: Not Given Morphine Sulfate (Morphine) 2 mg IVP Q4H PRN PRN Reason: Pain, severe (8-10) Last Admin: 01/02/17 05:24 Dose: 2 mg Ondansetron HCl (Zofran Inj) 4 mg IVP Q6H PRN PRN Reason: Nausea/Vomiting Last Admin: 01/02/17 05:24 Dose: 4 mg - Labs Labs: 01/01/17 06:50 01/01/17 07:00 PT 14.7 Seconds (9.9-11.8) H 12/29/16 08:00 INR 1.36 (0.93-1.08) H 12/29/16 08:00 APTT 32.7 Seconds (23.7-30.8) H 12/29/16 08:00 - Constitutional Appears: Chronically Ill - Head Exam Head Exam: ATRAUMATIC, NORMAL INSPECTION, NORMOCEPHALIC - Eye Exam Eye Exam: EOMI, Normal appearance, PERRL. absent: Scleral icterus Pupil Exam: NORMAL ACCOMODATION - ENT Exam ENT Exam: Mucous Membranes Moist - Neck Exam Additional comments: supple - Respiratory Exam Respiratory Exam: Clear to Ausculation Bilateral. absent: Rales, Rhonchi, Wheezes - Cardiovascular Exam Cardiovascular Exam: REGULAR RHYTHM, +S1, +S2 - GI/Abdominal Exam GI & Abdominal Exam: Soft, Normal Bowel Sounds. absent: Guarding, Rigid, Tenderness - Extremities Exam Extremities Exam: Normal Capillary Refill. absent: Calf Tenderness, Pedal Edema - Neurological Exam Neurological Exam: Alert, Awake - Psychiatric Exam Psychiatric exam: Anxious - Skin Skin Exam: Dry, Warm Assessment and Plan - Assessment and Plan (Free Text) Plan: 46 AA M with AIDS due to CD4<20, viral load ___pending___, non-compliance, resistant to most HIV drug, on Truvada only Hx HIV and Hep B Neutropenic, ANC 0.6K Pancytopenic Perianal abscess s/p I&D (12/29/16, POD #4) Chronic diarrhea - fecal leukocyte negative, doubt inflammatory etiology Hx cryptosporodiosis, Shigella, syphillis Hx Chronic pancreatitis Hx submandibular abscess s/p I&D Last colonoscopy 2006 - hemorrhoid, biopsy PAS +ve cryptosporodium parvum Hx Shigellosis at [facility], October 2016, finishing 21 day of levaquin on No oral thrush Penicillin allergy - Pending HIV, HepB viral load, Toxo ab, AFB on blood for MAC, Quantiferon gold , RPR - start atovaquone 1500mg daily for PJP & toxo prophylaxis and azithromycin 1200 q7d for MAC prophylaxis - pt refuses both prophylactic antibiotics. Primary team and ID team explained his immune status, rationale, risk, benefit, alternatives. Pt has a sound mind, understands and appreciate the info. Pt chooses to refuse prophylatics. Pt chose to stay with IV vitamins and mineral that he received weekly at Dr. Reed. At home he will take silver antibiotics 2 teaspon QID prescripted by Dr. Reed. Pt said that he will continue to follow up with Dr. Reed in [address] Dominguez Next Thursday. - Continue Azactam (day 4) and Flagyl (day 5) for now for the perirectal abscess which was i&d - Will discuss with Dr. Ginger garcia to swtich him on PO flagyl with clindamycin Will s/r/d/w Dr. Miles <Abdiaziz Miles S - Last Filed: 01/02/17 14:18> Objective - Vital Signs/Intake and Output Vital Signs (last 24 hours): Temp Pulse Resp BP Pulse Ox 99.1 F 68 18 105/63 99 01/02/17 08:00 01/02/17 08:00 01/02/17 08:00 01/02/17 08:00 01/02/17 08:00 Intake and Output: 01/02/17 01/02/17 06:59 18:59 Intake Total 600 Output Total 450 Balance 150 - Medications Medications: Current Medications Atovaquone (Mepron) 1,500 mg PO DAILY [facility] Last Admin: 01/02/17 10:39 Dose: Not Given Azithromycin (Zithromax) 200 mg PO Q7D [facility] PRN Reason: Protocol Last Admin: 01/01/17 14:44 Dose: Not Given Azithromycin (Zithromax) 1,000 mg PO Q7D [facility] PRN Reason: Protocol Last Admin: 01/01/17 14:44 Dose: Not Given Famotidine (Pepcid) 20 mg IVP DAILY [facility] Last Admin: 01/02/17 10:27 Dose: 20 mg Aztreonam (Azactam 1 Gm) 100 mls @ 100 mls/hr IVPB Q8 [facility] PRN Reason: Protocol Stop: 01/06/17 14:46 Last Admin: 01/02/17 13:37 Dose: 100 mls/hr Metronidazole (Flagyl) 500 mg in 100 mls @ 100 mls/hr IVPB Q8 [facility] PRN Reason: Protocol Last Admin: 01/02/17 05:58 Dose: 100 mls/hr Ibuprofen (Motrin Tab) 400 mg PO Q6H PRN PRN Reason: Fever >100.4 F Last Admin: 01/01/17 08:15 Dose: 400 mg Lactobacillus Acidophilus (Bacid Acidophilus) 1 cap PO BID [facility] Last Admin: 01/02/17 10:27 Dose: 1 cap Morphine Sulfate (Morphine) 2 mg IVP Q4H PRN PRN Reason: Pain, severe (8-10) Last Admin: 01/02/17 05:24 Dose: 2 mg Ondansetron HCl (Zofran Inj) 4 mg IVP Q6H PRN PRN Reason: Nausea/Vomiting Last Admin: 01/02/17 05:24 Dose: 4 mg - Labs Labs: 01/02/17 07:00 01/02/17 07:00 PT 14.7 Seconds (9.9-11.8) H 12/29/16 08:00 INR 1.36 (0.93-1.08) H 12/29/16 08:00 APTT 32.7 Seconds (23.7-30.8) H 12/29/16 08:00 Assessment and Plan - Assessment and Plan (Free Text) Plan: Infectious Diseases Attending Physician Attestation Patient seen and examined, discussed with medical insurance claims specialist. I agree with the above findings, assessment and plan. In addition, serum RPR and crypt Ag are negative. Will continue Azactam for another (will finish Azactam by tomorrow afternoon's dose). Will continue Mepron for PJP Prophylaxis and Zithromax for DEANNA Prophylaxis in HIV/AIDS patient. Patient also has chronic active hepatitis B and we are awaiting HBV DNA PCR. Patient has stated that he will follow up with his HIV provider in [place] after discharge.
[2017-01-02 08:01] LABS: WHITE BLOOD COUNT 1.2 10^3/ul (4.5-11.0)
[2017-01-02 08:02] LABS: ALB/GLOB RATIO 0.8 (1.1-1.8); ALBUMIN 2.7 g/dL (3.0-4.8); ALT/SGPT 189 U/L (7-56); AST/SGOT 188 U/L (15-59); BLOOD UREA NITROGEN 8 mg/dL (7-21); CALCIUM 7.7 mg/dL (8.4-10.5); GFR AFRICAN-AMERICAN > 60; GFR NON-AFRICAN AMERICAN > 60
[2017-01-02 09:49] LABS: BAND 2 % (0-2); EOSINOPHIL 6 % (0.0-3.0); LYMPHOCYTE 12 % (22.0-35.0); MONOCYTE 14 % (1.0-6.0); NEUTROPHIL 66 % (50.0-70.0); PLATELET ESTIMATE LOW (NORMAL)
[2017-01-02] MEDS: Atovaquone 750 mg/5 ml Susp UD PO SCH ×2 (10:27→10:39)
[2017-01-02] MEDS: Lactobacillus Acidophilus 500 MU Cap PO SCH ×2 (10:27→18:48)
[2017-01-02] MEDS ORDERED: Menthol/Methyl Salicylate Ointment(1 oz) TOP PRN ×2 (16:31→16:36)
--- NOTE | 2017-01-02 18:46 | CP.PCM.PN ---
<Karuna West - Last Filed: 01/02/17 18:43> Subjective - Date & Time of Evaluation Date of Evaluation: 01/02/17 Time of Evaluation: 05:30 - Subjective Subjective: seen and examined at the bedside this afternoon, no acute overnight events reported. Patient states he only gets diarrhea after eating certain types of food. Denies any nausea, vomiting, or abdominal pain. Perirectal abscess is improving. No reports of bleeding, fever, or chills. Objective - Vital Signs/Intake and Output Vital Signs (last 24 hours): Temp Pulse Resp BP Pulse Ox 98.6 F 71 20 111/74 100 01/02/17 16:22 01/02/17 16:22 01/02/17 16:22 01/02/17 16:22 01/02/17 16:22 Intake and Output: 01/02/17 01/02/17 06:59 18:59 Intake Total 600 540 Output Total 450 Balance 150 540 - Medications Medications: Current Medications Ascorbic Acid (Vitamin C 500 Mg Tab) 500 mg PO DAILY [facility] Last Admin: 01/02/17 17:41 Dose: Not Given Atovaquone (Mepron) 1,500 mg PO DAILY [facility] Last Admin: 01/02/17 10:39 Dose: Not Given Azithromycin (Zithromax) 200 mg PO Q7D [facility] PRN Reason: Protocol Last Admin: 01/01/17 14:44 Dose: Not Given Azithromycin (Zithromax) 1,000 mg PO Q7D [facility]LAQUITA PRN Reason: Protocol Last Admin: 01/01/17 14:44 Dose: Not Given Camphor/Menthol (Bengay) 0 gm TOP QID PRN PRN Reason: Muscle spasm Famotidine (Pepcid) 20 mg IVP DAILY [facility] Last Admin: 01/02/17 10:27 Dose: 20 mg Aztreonam (Azactam 1 Gm) 100 mls @ 100 mls/hr IVPB Q8 [facility] PRN Reason: Protocol Stop: 01/06/17 14:46 Last Admin: 01/02/17 13:37 Dose: 100 mls/hr Metronidazole (Flagyl) 500 mg in 100 mls @ 100 mls/hr IVPB Q8 [facility] PRN Reason: Protocol Last Admin: 01/02/17 15:19 Dose: 100 mls/hr Ibuprofen (Motrin Tab) 400 mg PO Q6H PRN PRN Reason: Fever >100.4 F Last Admin: 01/01/17 08:15 Dose: 400 mg Lactobacillus Acidophilus (Bacid Acidophilus) 1 cap PO BID [facility] Last Admin: 01/02/17 10:27 Dose: 1 cap Morphine Sulfate (Morphine) 2 mg IVP Q4H PRN PRN Reason: Pain, severe (8-10) Last Admin: 01/02/17 05:24 Dose: 2 mg Ondansetron HCl (Zofran Inj) 4 mg IVP Q6H PRN PRN Reason: Nausea/Vomiting Last Admin: 01/02/17 05:24 Dose: 4 mg - Labs Labs: 01/02/17 07:00 01/02/17 07:00 PT 14.7 Seconds (9.9-11.8) H 12/29/16 08:00 INR 1.36 (0.93-1.08) H 12/29/16 08:00 APTT 32.7 Seconds (23.7-30.8) H 12/29/16 08:00 - Constitutional Appears: No Acute Distress - Head Exam Head Exam: NORMOCEPHALIC - Eye Exam Eye Exam: Normal appearance. absent: Scleral icterus - ENT Exam ENT Exam: Mucous Membranes Moist - Respiratory Exam Respiratory Exam: Clear to Ausculation Bilateral, NORMAL BREATHING PATTERN. absent: Respiratory Distress - Cardiovascular Exam Cardiovascular Exam: +S1, +S2 - GI/Abdominal Exam GI & Abdominal Exam: Soft, Normal Bowel Sounds. absent: Guarding, Tenderness, Rebound - Extremities Exam Extremities Exam: absent: Calf Tenderness, Pedal Edema - Neurological Exam Neurological Exam: Alert, Awake, Oriented x3 - Skin Skin Exam: Dry, Warm Assessment and Plan - Assessment and Plan (Free Text) Assessment: ASSESSMENT: Left perirectal abscess, status post incision and drainage, Chronic CBD dilations/p MRCP, noted same CBD dilitation, unremarkable pancreas, obstructing mass or stones Hepatitis B HIV H/O Shighella PLAN: on IV antibiotics contiue PPI on lactose/gluten free diet as per pt. request, denies allergy trend LFT, improving as per ID,surgery Discuss with patient regarding chronic biliary dilation, and evaluation, patient reports it is a chronic finding, he is concerned about his CD4 count that he reports is always low and that he is immune to current available antiviral and that he was informed of a new antiviral that he may be able to take and is awaiting for this to come into the market. He would consider further workup after resolution of current problem unless a life threatening situation would occur. He was recommended to be sent home on discharge with copies of his MRCP. Recommend him to FU in outpatient GI clinic, discussed detail with the patient. Seen and discussed w/ Dr. Hidalgo. <Alivia Hidalgo V - Last Filed: 01/03/17 00:03> Objective - Vital Signs/Intake and Output Vital Signs (last 24 hours): Temp Pulse Resp BP Pulse Ox 98.6 F 71 20 111/74 100 01/02/17 16:22 01/02/17 16:22 01/02/17 16:22 01/02/17 16:22 01/02/17 16:22 Intake and Output: 01/02/17 01/03/17 18:59 06:59 Intake Total 540 360 Output Total 400 Balance 540 -40 - Medications Medications: Current Medications Ascorbic Acid (Vitamin C 500 Mg Tab) 500 mg PO DAILY [facility] Last Admin: 01/02/17 17:41 Dose: Not Given Atovaquone (Mepron) 1,500 mg PO DAILY [facility] Last Admin: 01/02/17 10:39 Dose: Not Given Azithromycin (Zithromax) 200 mg PO Q7D [facility] PRN Reason: Protocol Last Admin: 01/01/17 14:44 Dose: Not Given Azithromycin (Zithromax) 1,000 mg PO Q7D [facility] PRN Reason: Protocol Last Admin: 01/01/17 14:44 Dose: Not Given Camphor/Menthol (Bengay) 0 gm TOP QID PRN PRN Reason: Muscle spasm Famotidine (Pepcid) 20 mg IVP DAILY [facility] Last Admin: 01/02/17 10:27 Dose: 20 mg Aztreonam (Azactam 1 Gm) 100 mls @ 100 mls/hr IVPB Q8 [facility] PRN Reason: Protocol Stop: 01/06/17 14:46 Last Admin: 01/02/17 23:30 Dose: 100 mls/hr Metronidazole (Flagyl) 500 mg in 100 mls @ 100 mls/hr IVPB Q8 [facility] PRN Reason: Protocol Last Admin: 01/02/17 21:53 Dose: 100 mls/hr Ibuprofen (Motrin Tab) 400 mg PO Q6H PRN PRN Reason: Fever >100.4 F Last Admin: 01/01/17 08:15 Dose: 400 mg Lactobacillus Acidophilus (Bacid Acidophilus) 1 cap PO BID [facility] Last Admin: 01/02/17 18:48 Dose: 1 cap Morphine Sulfate (Morphine) 2 mg IVP Q4H PRN PRN Reason: Pain, severe (8-10) Last Admin: 01/02/17 05:24 Dose: 2 mg Ondansetron HCl (Zofran Inj) 4 mg IVP Q6H PRN PRN Reason: Nausea/Vomiting Last Admin: 01/02/17 05:24 Dose: 4 mg - Labs Labs: 01/02/17 07:00 01/02/17 07:00 PT 14.7 Seconds (9.9-11.8) H 12/29/16 08:00 INR 1.36 (0.93-1.08) H 12/29/16 08:00 APTT 32.7 Seconds (23.7-30.8) H 12/29/16 08:00 Attending/Attestation - Attestation I have personally seen and examined this patient.: Yes I have fully participated in the care of the patient.: Yes I have reviewed all pertinent clinical information, including history, physical exam and plan: Yes Notes (Text): p
[2017-01-02 19:05] LABS: TOXOPLASMA IGG AB <7.20 IU/mL
[2017-01-03] MEDS: Morphine 2 mg/ml ISec IVP PRN (02:13)
[2017-01-03] MEDS: metroNIDAZOLE IV 500 mg/100 ml 500 MG/100 ML BAG IVPB SCH ×2 (05:42→15:41)
[2017-01-03] MEDS: Aztreonam 1 Gm in NS 100mL 100 ML IVPB SCH ×2 (06:34→15:40)
[2017-01-03 07:51] LABS: BASO # 0.01 K/mm3 (0.0-2.0); BASO % 0.8 % (0.0-3.0); EOS # 0.1 (0.0-0.7); EOS % 6.6 % (1.5-5.0); GRAN # 0.71 (1.4-6.5); GRAN % 58.8 % (50.0-68.0); HEMOGLOBIN 11.4 gm/dL (14.0-18.0); LYMPH # 0.2 (1.2-3.4); MEAN CELL VOLUME 80.5 fL (80.0-105.0); MEAN CORPUSCULAR HEMOGLOBIN 27.7 pg (25.0-35.0); MEAN CORPUSCULAR HGB CONC 34.4 g/dl (31.0-37.0); MEAN PLATELET VOLUME 10.6 fl (7.0-11.0); MONO # 0.2 (0.1-0.6); MONO % 19.8 % (1.0-6.0); PLATELET COUNT 131 10^3/uL (120.0-450.0); RBC 4.11 10^6/uL (3.5-6.1); RED CELL DISTRIBUTION WIDTH 14.8 % (11.5-14.5)
[2017-01-03 08:06] LABS: ALB/GLOB RATIO 0.7 (1.1-1.8); ALBUMIN 2.7 g/dL (3.0-4.8); ALT/SGPT 191 U/L (7-56); AST/SGOT 210 U/L (15-59); BLOOD UREA NITROGEN 7 mg/dL (7-21); CALCIUM 7.5 mg/dL (8.4-10.5); GFR AFRICAN-AMERICAN > 60; GFR NON-AFRICAN AMERICAN > 60
[2017-01-03 08:09] VITALS: BP 107/70; PULSE 77; RESP 18; TEMP 98.2; O2SAT 99
[2017-01-03 08:10] LABS: WHITE BLOOD COUNT 1.2 10^3/ul (4.5-11.0)
[2017-01-03] MEDS: Lactobacillus Acidophilus 500 MU Cap PO SCH (09:06)
[2017-01-03] MEDS: Atovaquone 750 mg/5 ml Susp UD PO SCH (09:07)
[2017-01-03 13:15] LABS: TB ANTIGEN MINUS NIL 0.01 IU/mL
--- NOTE | 2017-01-05 23:45 | CP.PCM.CON ---
Past Patient History - Infectious Disease Hx of Infectious Diseases: None - Past Social History Smoking Status: Never Smoked - MUSCULOSKELETAL/RHEUMATOLOGICAL Hx Falls: No Hx Unsteady Gait: Yes - GASTROINTESTINAL Hx Pancreatitis: Yes - PSYCHIATRIC Hx Substance Use: No - ANESTHESIA Hx Anesthesia: No Hx Anesthesia Reactions: No Hx Malignant Hyperthermia: No Meds Allergies/Adverse Reactions: Allergies Allergy/AdvReac Type Severity Reaction Status Date / Time PCN Allergy Mild SWELLING Uncoded 12/28/16 19:58 - Medications Medications: Current Medications Famotidine (Pepcid) 20 mg IVP DAILY [facility] Last Admin: 12/29/16 09:08 Dose: 20 mg Sodium Chloride (Sodium Chloride 0.9%) 1,000 mls @ 125 mls/hr IV .Q8H [facility] Last Admin: 12/29/16 09:06 Dose: 125 mls/hr Metronidazole (Flagyl) 500 mg in 100 mls @ 100 mls/hr IVPB Q8 [facility] PRN Reason: Protocol Last Admin: 12/29/16 22:28 Dose: 100 mls/hr Levofloxacin/Dextrose (Levaquin 750mg) 750 mg in 150 mls @ 100 mls/hr IVPB DAILY [facility] Last Admin: 12/29/16 12:31 Dose: 100 mls/hr Morphine Sulfate (Morphine) 2 mg IVP Q4 PRN PRN Reason: Pain, severe (8-10) Last Admin: 12/29/16 22:27 Dose: 2 mg Ondansetron HCl (Zofran Inj) 4 mg IVP Q6H PRN PRN Reason: Nausea/Vomiting Last Admin: 12/29/16 18:13 Dose: 4 mg Results - Vital Signs Recent Vital Signs: Last Vital Signs Temp 99.6 F 12/29/16 17:38 Pulse 84 12/29/16 17:38 Resp 20 12/29/16 17:38 BP 101/61 12/29/16 17:38 Pulse Ox 98 12/29/16 17:38 - Labs Result Diagrams: 12/28/16 21:05 12/28/16 21:05 Labs: Laboratory Results - last 24 hr 12/29/16 12/29/16 12/29/16 05:00 05:00 08:00 PT 14.7 H INR 1.36 H APTT 32.7 H Procalcitonin Urine Color Urine Appearance Urine pH Ur Specific [place] Urine Protein Urine Glucose (UA) Urine Ketones Urine Blood Urine Nitrate Urine Bilirubin Urine Urobilinogen Ur Leukocyte Esterase Urine RBC Urine WBC Ur Epithelial Cells Urine Bacteria Urine Opiates Screen Urine Methadone Screen Ur Barbiturates Screen Ur Phencyclidine Scrn Ur Amphetamines Screen U Benzodiazepines Scrn U Oth Cocaine Metabols U Cannabinoids Screen Hepatitis A IgM Ab Negative Hep Bs Antigen Positive H Hep Bs Ag Neutralizatn Confirmed positive H Hep B Core IgM Ab Negative Hepatitis C Antibody Negative 12/29/16 12/29/16 12/29/16 08:00 08:00 11:51 PT INR APTT Procalcitonin 0.16 L Urine Color Yellow Urine Appearance Clear Urine pH 6.0 Ur Specific [place] 1.010 Urine Protein Trace H Urine Glucose (UA) Negative Urine Ketones Negative Urine Blood Trace-lysed H Urine Nitrate Negative Urine Bilirubin Negative Urine Urobilinogen 0.2 Ur Leukocyte Esterase Negative Urine RBC 1 - 3 Urine WBC 0 - 2 Ur Epithelial Cells 0 - 2 Urine Bacteria Neg Urine Opiates Screen Positive H Urine Methadone Screen Negative Ur Barbiturates Screen Negative Ur Phencyclidine Scrn Negative Ur Amphetamines Screen Negative U Benzodiazepines Scrn Negative U Oth Cocaine Metabols Negative U Cannabinoids Screen Negative Hepatitis A IgM Ab Hep Bs Antigen Hep Bs Ag Neutralizatn Hep B Core IgM Ab Hepatitis C Antibody Assessment & Plan - Assessment and Plan (Free Text) Assessment: t - Date & Time Date: 12/29/16 Time: 10:45
== END 2017-01-03 15:43 | disposition home or self-care (01) | DRG 344 ==
LOC: ED 19:48 → EROBSV 20:30 → OBSVTOIN 12-29 00:12 → ERH 12-29 00:22 → 5RSO 12-29 02:13 → 5RNO 01-01 21:15
PROVIDERS: ADMIT Internal Medicine; ATTEND Internal Medicine
PROC: 0D9P0ZZ Drainage of Rectum, Open Approach (ICD-10-PCS; principal; 2016-12-29)
DX: K61.2 Anorectal abscess (principal); B20 Human immunodeficiency virus [HIV] disease; D61.818 Other pancytopenia; K83.8 Other specified diseases of biliary tract; B18.1 Chronic viral hepatitis B without delta-agent; K80.20 Calculus of gallbladder without cholecystitis without obstruction; B96.20 Unspecified Escherichia coli [E. coli] as the cause of diseases classified elsewhere; Z91.19 Patient's noncompliance with other medical treatment and regimen

== ENCOUNTER 2017-02-20 04:03 | Emergency (ER) | payer MEDICARE, OTHER ==
[2017-02-20 04:03] VITALS: BMI 22.6
[2017-02-20 04:13] VITALS: TEMP 97.6
--- NOTE | 2017-02-20 04:33 | ED PDOC ---
Arrival/HPI - General Chief Complaint: GI Problem Time Seen by Provider: 02/20/17 04:03 Historian: Patient - History of Present Illness Narrative History of Present Illness (Text): 02/20/17 04:34 Abhilash Isaac is a 46 year old male, whose past medical history includes HIV/AIDS and Hep B, who presents to the emergency department complaining of Perianal pain for a day. Patient states that he had a surgery on 12/29 for a perianal/perirectal abscess and has been pain free since then but has continued to have diarrhea and today felt a recurrence of the pain, the way it felt prior to the surgery. Patient denies any fever chest pain, shortness of breath, cough , dizziness, or any other complaint at this time. Surgeon: Dr. Baig Time/Duration: 24 hours Symptom Onset: Gradual Symptom Course: Unchanged Severity Level: Mild Activities at Onset: Rest Context: Home Past Medical History - Provider Review Nursing Documentation Reviewed: Yes - Infectious Disease Hx of Infectious Diseases: None - Musculoskeletal/Rheumatological Hx Falls: No Hx Unsteady Gait: Yes - Gastrointestinal Hx Pancreatitis: Yes - Psychiatric Hx Anxiety: Yes Hx Substance Use: No - Surgical History Other/Comment: rectal fistula repair - Anesthesia Hx Anesthesia: No Hx Anesthesia Reactions: No Hx Malignant Hyperthermia: No Family/Social History - Physician Review Nursing Documentation Reviewed: Yes Family/Social History: No Known Family HX Smoking Status: Never Smoked Hx Alcohol Use: No Hx Substance Use: No Allergies/Home Meds Allergies/Adverse Reactions: Allergies amoxicillin Allergy (Verified 02/20/17 04:24) ANAPHYLAXIS PCN Allergy (Mild, Uncoded 12/28/16 19:58) SWELLING Home Medications: Home Meds Medication Instructions Recorded Confirmed No Known Home Med 02/20/17 02/20/17 Review of Systems - Physician Review All systems were reviewed & negative as marked: Yes - Review of Systems Constitutional: absent: Fevers, Night Sweats Eyes: absent: Vision Changes ENT: absent: Hearing Changes Respiratory: absent: SOB Cardiovascular: absent: Chest Pain Gastrointestinal: Diarrhea. absent: Abdominal Pain Genitourinary Male: Other (Perianal pain). absent: Dysuria Musculoskeletal: absent: Arthralgias, Back Pain Skin: absent: Rash Neurological: absent: Headache, Dizziness Endocrine: absent: Diaphoresis Hemo/Lymphatic: absent: Adenopathy Physical Exam Vital Signs Reviewed: Yes Vital Signs Temp Pulse Resp BP Pulse Ox 02/20/17 04:12 97.6 F 91 H 18 116/77 99 Temperature: Afebrile Blood Pressure: Normal Pulse: Tachycardic Respiratory Rate: Normal Appearance: Positive for: Well-Appearing, Non-Toxic, Comfortable Pain Distress: None Mental Status: Positive for: Alert and Oriented X 3 - Systems Exam Head: Present: Atraumatic, Normocephalic Pupils: Present: PERRL Conjunctiva: Present: Normal Mouth: Present: Moist Mucous Membranes Pharnyx: Present: Normal. No: ERYTHEMA, EXUDATE Neck: Present: Normal Range of Motion Respiratory/Chest: Present: Clear to Auscultation, Good Air Exchange. No: Respiratory Distress, Accessory Muscle Use Cardiovascular: Present: Regular Rate and Rhythm, Normal S1, S2. No: Murmurs Abdomen: Present: Normal Bowel Sounds. No: Tenderness, Distention, Peritoneal Signs Rectal: Present: Other (Patient with very raw appearing perianal area with drainage and tenderness on his right buttock region) Back: Present: Normal Inspection Upper Extremity: Present: Normal Inspection. No: Cyanosis, Edema Lower Extremity: Present: Normal Inspection. No: Edema Neurological: Present: GCS=15, CN II-XII Intact, Speech Normal Skin: Present: Warm, Dry, Normal Color. No: Rashes Psychiatric: Present: Alert, Oriented x 3, Normal Insight, Normal Concentration Medical Decision Making ED Course and Treatment: 02/20/17 04:23 Impression: 46 year old male complaining of Perianal pain for a day. Differential Diagnosis included but are not limited to: Recurrence of abscess vs fistula Plan: -- Labs -- Reassess and disposition Prior Visits: Notes and results from previous visits were reviewed. Patient last seen in the ED on 12/29/16 for rectal pain for one month. Patient was admitted to hospitalist care for further evaluation. Progress Notes: 02/20/17 04:47 Patient with noted history s/p procedure by Dr. Baig on 12/29 with recurrence of pain; discussed with Dr. Baig who requested president and chief operating officer to come to the ED to evaluate patient. Discussed with president and chief operating officer to see the patient. 02/20/17 06:47 Patient was seen by resident Dr. López, who discussed the case with Dr. Safia, who recommended CT of pelvis with IV contrast which is pending. Case will be endorsed to Dr. Dey to follow results and discuss with surgery. - Lab Interpretations Lab Results: 02/20/17 04:45 02/20/17 04:45 Lab Results 02/20/17 04:45: Blood Type Pending, Antibody Screen Pending, BBK History Checked No verified bt 02/20/17 04:45: PT 14.3 H, INR 1.32 H, APTT 24.5 02/20/17 04:45: Sodium 146, Potassium 3.9, Chloride 113 H, Carbon Dioxide 20 L, Anion Gap 17, BUN 24 H, Creatinine 0.8, Est GFR ( Amer) > 60, Est GFR ( Non-Af Amer) > 60, Random Glucose 82, Calcium 8.9, Total Bilirubin 0.4, AST 128 H, ALT 181 H, Alkaline Phosphatase 153 H, Total Protein 9.0 H, Albumin 3.7, Globulin 5.2, Albumin/Globulin Ratio 0.7 L, Lipase 810 H 02/20/17 04:45: WBC 3.9 L D, RBC 3.99, Hgb 12.2 L, Hct 35.3 L, MCV 88.5, MCH 30.6, MCHC 34.6, RDW 16.4 H, Plt Count 220, MPV 11.7 H, Gran % 68.3 H, Lymph % ( Auto) 20.3 L, Wayne % (Auto) 8.8 H, Eos % (Auto) 2.3, Baso % (Auto) 0.3, Gran # 2.63, Lymph # 0.8 L, Wayne # 0.3, Eos # 0.1, Baso # 0.01 I have reviewed the lab results: Yes - RAD Interpretation Radiology Orders: 02/20/17 06:21 PELVIS W/IV CONTRAST ONLY [CT] Stat - Medication Orders Current Medication Orders: Discontinued Medications Morphine Sulfate (Morphine) 2 mg IVP STAT STA Stop: 02/20/17 04:44 Last Admin: 02/20/17 04:50 Dose: 2 mg MARI Pain Assessment Document 02/20/17 04:50 JOL (Rec: 02/20/17 04:55 JOL [id number]) Pain Reassessment Is this a pain reassessment? No Sleep Is patient sleeping during reassessment? No Presence of Pain Presence of Pain Yes Pain Scale Used Pain Scale Used Numeric Location Pain Location Body Site Sacrum Description Intensity of Pain at present 7 Pain Behavior Irritability Withdrawal from Touch Restlessness Facial Grimacing Aggravating Factors ADL's Changing Position Alleviating Factors/Management Medication Techniques IVP Administration Document 02/20/17 04:50 JOL (Rec: 02/20/17 04:55 JOL [id number]) Charges for Administration # of IVP Administrations 1 - Scribe Statement The provider has reviewed the documentation as recorded by the Jeromeibjaylyn Overton Provider Scribe Attestation: All medical record entries made by the Scribe were at my direction and personally dictated by me. I have reviewed the chart and agree that the record accurately reflects my personal performance of the history, physical exam, medical decision making, and the department course for this patient. I have also personally directed, reviewed, and agree with the discharge instructions and disposition. Disposition/Present on Arrival - Present on Arrival Any Indicators Present on Arrival: No History of DVT/PE: No History of Uncontrolled Diabetes: No Urinary Catheter: No History of Decub. Ulcer: No History Surgical Site Infection Following: None - Disposition Have Diagnosis and Disposition been Completed?: No Diagnosis: Perianal pain Disposition Time: 07:00 Condition: STABLE Forms: [employer] ([place])
[2017-02-20] MEDS ORDERED: Morphine 2 mg/ml ISec IVP STA (04:43)
[2017-02-20 05:22] LABS: BASO # 0.01 K/mm3 (0.0-2.0); BASO % 0.3 % (0.0-3.0); EOS # 0.1 (0.0-0.7); EOS % 2.3 % (1.5-5.0); GRAN # 2.63 (1.4-6.5); GRAN % 68.3 % (50.0-68.0); HEMATOCRIT 35.3 % (42.0-52.0); LYMPH # 0.8 (1.2-3.4); LYMPH % 20.3 % (22.0-35.0); MEAN CELL VOLUME 88.5 fl (80.0-105.0); MEAN CORPUSCULAR HEMOGLOBIN 30.6 pg (25.0-35.0); MEAN CORPUSCULAR HGB CONC 34.6 g/dl (31.0-37.0); MEAN PLATELET VOLUME 11.7 fl (7.0-11.0); MONO # 0.3 (0.1-0.6); MONO % 8.8 % (1.0-6.0); RED CELL DISTRIBUTION WIDTH 16.4 % (11.5-14.5); WHITE BLOOD COUNT 3.9 10^3/ul (4.5-11.0)
[2017-02-20 05:23] LABS: INR 1.32 (0.93-1.08); PARTIAL THROMBOPLASTIN TIME 24.5 Seconds (23.7-30.8)
[2017-02-20 06:06] LABS: ALB/GLOB RATIO 0.7 (1.1-1.8); ALKALINE PHOSPHATASE 153 U/L (38-126); ALT/SGPT 181 U/L (7-56); AST/SGOT 128 U/L (17-59); BILIRUBIN,TOTAL 0.4 mg/dL (0.2-1.3); BLOOD UREA NITROGEN 24 mg/dL (7-21); CALCIUM 8.9 mg/dL (8.4-10.5); CARBON DIOXIDE 20 mmol/L (21-33); CHLORIDE 113 mmol/L (98-107); GFR AFRICAN-AMERICAN > 60; GLUCOSE,RANDOM 82 mg/dL (70-110); LIPASE 810 U/L (23-300); POTASSIUM 3.9 mmol/L (3.6-5.0); SODIUM 146 mmol/L (132-148)
--- NOTE | 2017-02-20 06:25 | CP.PCM.CON ---
<Bruno López - Last Filed: 02/20/17 09:19> History of Present Illness - History of Present Illness History of Present Illness: General Surgery Consult Re: prior surgery for perirectal fistula/abscess HPI: 46M presented to the ED complaining of perianal pain that began on . 12/08 pain that was similar to when he required surgery on 12/29 for a perianal/perirectal abscess. He had been pain free since then, however, continued diarrhea causes undigested food to come out the wound. Denies F/C, chest pain, shortness of breath, cough, dizziness, or any other complaints. He has been caring for it with saline washes, hibacleanse, and sitz baths and he is slowly healing. PMH: HIV, HepB, Crohns PSH: umbilical hernia repair, colonoscopy SH: denies smoking, etoh use, illicit drug use. : All: PCN Meds: Uses home remedies Review of Systems - Review of Systems All systems: reviewed and no additional remarkable complaints except (as per HPI ) Past Patient History - Infectious Disease Hx of Infectious Diseases: None - Past Social History Smoking Status: Never Smoked - MUSCULOSKELETAL/RHEUMATOLOGICAL Hx Falls: No Hx Unsteady Gait: Yes - GASTROINTESTINAL Hx Pancreatitis: Yes - PSYCHIATRIC Hx Anxiety: Yes Hx Substance Use: No - SURGICAL HISTORY Other/Comment: rectal fistula repair - ANESTHESIA Hx Anesthesia: No Hx Anesthesia Reactions: No Hx Malignant Hyperthermia: No Meds Home Medications: Home Medication List Medication Instructions Recorded Confirmed Type Ciprofloxacin [Cipro] 500 mg PO Q12 #20 tab 02/20/17 Rx metroNIDAZOLE [Flagyl] 500 mg PO TID #30 tab 02/20/17 Rx Allergies/Adverse Reactions: Allergies Allergy/AdvReac Type Severity Reaction Status Date / Time amoxicillin Allergy ANAPHYLAXIS Verified 02/20/17 04:24 PCN Allergy Mild SWELLING Uncoded 12/28/16 19:58 Physical Exam - Constitutional Appears: Non-toxic, No Acute Distress - Head Exam Head Exam: ATRAUMATIC, NORMOCEPHALIC - Eye Exam Eye Exam: EOMI. absent: Scleral icterus - ENT Exam ENT Exam: Mucous Membranes Moist Additional comments: trachea midline - Respiratory Exam Respiratory Exam: NORMAL BREATHING PATTERN. absent: Respiratory Distress - Cardiovascular Exam Cardiovascular Exam: RRR, +S1, +S2 - GI/Abdominal Exam GI & Abdominal Exam: Soft. absent: Distended, Firm, Guarding, Rigid, Tenderness - Rectal Exam Additional comments: Surgical wound on R buttock healing in but has white drainage. Another smaller hole seen at 6 oclock. MORAIMA: unable to palpate a hole in rectal mucosa - Extremities Exam Extremities exam: Negative for: calf tenderness, pedal edema - Back Exam Back exam: absent: CVA tenderness (L), CVA tenderness (R) - Neurological Exam Neurological exam: Alert, Oriented x3 - Psychiatric Exam Psychiatric exam: Normal Affect, Normal Mood - Skin Skin Exam: Dry, Warm Results - Vital Signs Recent Vital Signs: Last Vital Signs Temp 97.6 F 02/20/17 04:12 Pulse 91 H 02/20/17 04:12 Resp 18 02/20/17 04:12 BP 116/77 02/20/17 04:12 Pulse Ox 99 02/20/17 04:12 - Labs Result Diagrams: 02/20/17 04:45 02/20/17 04:45 Labs: Laboratory Results - last 24 hr 02/20/17 02/20/17 02/20/17 04:45 04:45 04:45 WBC 3.9 L D RBC 3.99 Hgb 12.2 L Hct 35.3 L MCV 88.5 MCH 30.6 MCHC 34.6 RDW 16.4 H Plt Count 220 MPV 11.7 H Gran % 68.3 H Lymph % (Auto) 20.3 L [place] % (Auto) 8.8 H Eos % (Auto) 2.3 Baso % (Auto) 0.3 Gran # 2.63 Lymph # 0.8 L [place] # 0.3 Eos # 0.1 Baso # 0.01 PT 14.3 H INR 1.32 H APTT 24.5 Sodium 146 Potassium 3.9 Chloride 113 H Carbon Dioxide 20 L Anion Gap 17 BUN 24 H Creatinine 0.8 Est GFR ( Amer) > 60 Est GFR (Non-Af Amer) > 60 Random Glucose 82 Calcium 8.9 Total Bilirubin 0.4 AST 128 H ALT 181 H Alkaline Phosphatase 153 H Total Protein 9.0 H Albumin 3.7 Globulin 5.2 Albumin/Globulin Ratio 0.7 L Lipase 810 H BBK History Checked 02/20/17 04:45 WBC RBC Hgb Hct MCV MCH MCHC RDW Plt Count MPV Gran % Lymph % (Auto) [place] % (Auto) Eos % (Auto) Baso % (Auto) Gran # Lymph # [place] # Eos # Baso # PT INR APTT Sodium Potassium Chloride Carbon Dioxide Anion Gap BUN Creatinine Est GFR ( Amer) Est GFR (Non-Af Amer) Random Glucose Calcium Total Bilirubin AST ALT Alkaline Phosphatase Total Protein Albumin Globulin Albumin/Globulin Ratio Lipase BBK History Checked No verified bt Assessment & Plan - Assessment and Plan (Free Text) Assessment: CT scan with IV contrast- discussed with pt who is worried about cost IVF If CT shows abscess pt will need admission to medicine and possible I&D If no abscess pt can follow up in GI clinic and with Dr. Baig D/W Dr. Safia López PGY4 <Zana Dey L - Last Filed: 02/20/17 13:20> Results - Vital Signs Recent Vital Signs: Last Vital Signs Temp 97.6 F 02/20/17 04:12 Pulse 85 02/20/17 06:03 Resp 18 02/20/17 06:03 BP 118/76 02/20/17 06:03 Pulse Ox 98 02/20/17 06:03 - Labs Result Diagrams: 02/20/17 04:45 02/20/17 04:45 Labs: Laboratory Results - last 24 hr 02/20/17 02/20/17 02/20/17 04:45 04:45 04:45 WBC 3.9 L D RBC 3.99 Hgb 12.2 L Hct 35.3 L MCV 88.5 MCH 30.6 MCHC 34.6 RDW 16.4 H Plt Count 220 MPV 11.7 H Gran % 68.3 H Lymph % (Auto) 20.3 L [place] % (Auto) 8.8 H Eos % (Auto) 2.3 Baso % (Auto) 0.3 Gran # 2.63 Lymph # 0.8 L [place] # 0.3 Eos # 0.1 Baso # 0.01 PT 14.3 H INR 1.32 H APTT 24.5 Sodium 146 Potassium 3.9 Chloride 113 H Carbon Dioxide 20 L Anion Gap 17 BUN 24 H Creatinine 0.8 Est GFR ( Amer) > 60 Est GFR (Non-Af Amer) > 60 Random Glucose 82 Calcium 8.9 Total Bilirubin 0.4 AST 128 H ALT 181 H Alkaline Phosphatase 153 H Total Protein 9.0 H Albumin 3.7 Globulin 5.2 Albumin/Globulin Ratio 0.7 L Lipase 810 H Blood Type Blood Type Confirm Antibody Screen BBK History Checked 02/20/17 02/20/17 04:45 06:00 WBC RBC Hgb Hct MCV MCH MCHC RDW Plt Count MPV Gran % Lymph % (Auto) [place] % (Auto) Eos % (Auto) Baso % (Auto) Gran # Lymph # [place] # Eos # Baso # PT INR APTT Sodium Potassium Chloride Carbon Dioxide Anion Gap BUN Creatinine Est GFR ( Amer) Est GFR (Non-Af Amer) Random Glucose Calcium Total Bilirubin AST ALT Alkaline Phosphatase Total Protein Albumin Globulin Albumin/Globulin Ratio Lipase Blood Type B POSITIVE Blood Type Confirm B POSITIVE Antibody Screen Negative BBK History Checked No verified bt Assessment & Plan - Assessment and Plan (Free Text) Assessment: This note was written by a After School Program Teacher and my name was added. I do not supervise their notes or their care in this case. Dr. Baig supervises the resident. I cannot get it off my list without signing it. <Michael Baig - Last Filed: 02/20/17 21:08> Results - Vital Signs Recent Vital Signs: Last Vital Signs Temp 97.6 F 02/20/17 04:12 Pulse 66 02/20/17 13:05 Resp 18 02/20/17 13:05 BP 113/51 L 02/20/17 13:05 Pulse Ox 100 02/20/17 13:05 - Labs Result Diagrams: 02/20/17 04:45 02/20/17 04:45 Labs: Laboratory Results - last 24 hr 02/20/17 02/20/17 02/20/17 04:45 04:45 04:45 WBC 3.9 L D RBC 3.99 Hgb 12.2 L Hct 35.3 L MCV 88.5 MCH 30.6 MCHC 34.6 RDW 16.4 H Plt Count 220 MPV 11.7 H Gran % 68.3 H Lymph % (Auto) 20.3 L [place] % (Auto) 8.8 H Eos % (Auto) 2.3 Baso % (Auto) 0.3 Gran # 2.63 Lymph # 0.8 L [place] # 0.3 Eos # 0.1 Baso # 0.01 PT 14.3 H INR 1.32 H APTT 24.5 Sodium 146 Potassium 3.9 Chloride 113 H Carbon Dioxide 20 L Anion Gap 17 BUN 24 H Creatinine 0.8 Est GFR ( Amer) > 60 Est GFR (Non-Af Amer) > 60 Random Glucose 82 Calcium 8.9 Total Bilirubin 0.4 AST 128 H ALT 181 H Alkaline Phosphatase 153 H Total Protein 9.0 H Albumin 3.7 Globulin 5.2 Albumin/Globulin Ratio 0.7 L Lipase 810 H Blood Type Blood Type Confirm Antibody Screen BBK History Checked 02/20/17 02/20/17 04:45 06:00 WBC RBC Hgb Hct MCV MCH MCHC RDW Plt Count MPV Gran % Lymph % (Auto) [place] % (Auto) Eos % (Auto) Baso % (Auto) Gran # Lymph # [place] # Eos # Baso # PT INR APTT Sodium Potassium Chloride Carbon Dioxide Anion Gap BUN Creatinine Est GFR ( Amer) Est GFR (Non-Af Amer) Random Glucose Calcium Total Bilirubin AST ALT Alkaline Phosphatase Total Protein Albumin Globulin Albumin/Globulin Ratio Lipase Blood Type B POSITIVE Blood Type Confirm B POSITIVE Antibody Screen Negative BBK History Checked No verified bt Attending/Attestation - Attestation I have personally seen and examined this patient.: Yes I have fully participated in the care of the patient.: Yes I have reviewed all pertinent clinical information: Yes Notes (Text): 02/20/17 21:05 Pt with HIV, Substance abuse, Crohns dis and recurrent anal fistula Labs reviewed CT scan reviewed No acute surgical intervention required at present. Plan d.w residents and ED physicians Pt can be DC home with Po antibiotics F.U in my office as out pt on Thursday GI clinic f/u in [place]
[2017-02-20] MEDS ORDERED: Iohexol 350 MG/100 ML VIAL ONE (07:33)
--- NOTE | 2017-02-20 07:43 | ED PDOC ---
Physical Exam Vital Signs Temp Pulse Resp BP Pulse Ox 02/20/17 06:03 85 18 118/76 98 02/20/17 04:12 97.6 F 91 H 18 116/77 99 Medical Decision Making ED Course and Treatment: 02/20/17 07:00 Patient signed out to me by Dr. Araujo. Follow up for surgical consult. Possible CT and reevaluation and disposition. 02/20/17 13:17 CT reviewed. No drainable abscess. Patient feels better. Patient's lipase is elevated but improved from last visit. Same for his LFTs. Patients states that he's on medications for his pancreas and these numbers today are much improved than before. He says usually his lipase is 1400. He states he has no abdominal pain. I discussed the case with Dr. Baig, Surgical Attending. He recommends Cipro and Flagyl x 10days. He advises that patient follow up with him in one week. Patient advised to return to the ED if symptoms worsen, fever, or any other concern. - Lab Interpretations Lab Results: 02/20/17 04:45 02/20/17 04:45 Lab Results 02/20/17 06:00: Blood Type Confirm B POSITIVE 02/20/17 04:45: Blood Type B POSITIVE, Antibody Screen Negative, BBK History Checked No verified bt 02/20/17 04:45: PT 14.3 H, INR 1.32 H, APTT 24.5 02/20/17 04:45: Sodium 146, Potassium 3.9, Chloride 113 H, Carbon Dioxide 20 L, Anion Gap 17, BUN 24 H, Creatinine 0.8, Est GFR ( Amer) > 60, Est GFR ( Non-Af Amer) > 60, Random Glucose 82, Calcium 8.9, Total Bilirubin 0.4, AST 128 H, ALT 181 H, Alkaline Phosphatase 153 H, Total Protein 9.0 H, Albumin 3.7, Globulin 5.2, Albumin/Globulin Ratio 0.7 L, Lipase 810 H 02/20/17 04:45: WBC 3.9 L D, RBC 3.99, Hgb 12.2 L, Hct 35.3 L, MCV 88.5, MCH 30.6, MCHC 34.6, RDW 16.4 H, Plt Count 220, MPV 11.7 H, Gran % 68.3 H, Lymph % ( Auto) 20.3 L, [place] % (Auto) 8.8 H, Eos % (Auto) 2.3, Baso % (Auto) 0.3, Gran # 2.63, Lymph # 0.8 L, [place] # 0.3, Eos # 0.1, Baso # 0.01 - RAD Interpretation Radiology Orders: 02/20/17 06:21 PELVIS W/IV CONTRAST ONLY [CT] Stat - Medication Orders Current Medication Orders: Discontinued Medications Iohexol (Omnipaque 350 100 Ml) Confirm Administered Dose 350 mg .ROUTE .STK-MED ONE Stop: 02/20/17 07:34 Morphine Sulfate (Morphine) 2 mg IVP STAT STA Stop: 02/20/17 04:44 Last Admin: 02/20/17 04:50 Dose: 2 mg MAR Pain Assessment Document 02/20/17 04:50 [facility] (Rec: 02/20/17 04:55 [id number] Pain Reassessment Is this a pain reassessment? No Sleep Is patient sleeping during reassessment? No Presence of Pain Presence of Pain Yes Pain Scale Used Pain Scale Used Numeric Location Pain Location Body Site Sacrum Description Intensity of Pain at present 7 Pain Behavior Irritability Withdrawal from Touch Restlessness Facial Grimacing Aggravating Factors ADL's Changing Position Alleviating Factors/Management Medication Techniques IVP Administration Document 02/20/17 04:50 JOL (Rec: 02/20/17 04:55 JOL [id number]) Charges for Administration # of IVP Administrations 1 - Scribe Statement The provider has reviewed the documentation as recorded by the Leann Aviles Provider Scribe Attestation: All medical record entries made by the Scribjaylyn were at my direction and personally dictated by me. I have reviewed the chart and agree that the record accurately reflects my personal performance of the history, physical exam, medical decision making, and the department course for this patient. I have also personally directed, reviewed, and agree with the discharge instructions and disposition. Disposition/Present on Arrival - Present on Arrival Any Indicators Present on Arrival: No History of DVT/PE: No History of Uncontrolled Diabetes: No Urinary Catheter: No History of Decub. Ulcer: No History Surgical Site Infection Following: None - Disposition Have Diagnosis and Disposition been Completed?: Yes Diagnosis: Perianal pain Disposition: HOME/ ROUTINE Disposition Time: 13:19 Patient Plan: Discharge Patient Problems: Current Active Problems Problem Status Onset Perianal pain Acute Condition: STABLE Discharge Instructions (ExitCare): Rectal Pain (ED) Additional Instructions: Mr Isaac, thank you for letting us take care of you today. Your provider was Dr. Dey. You were treated for Rectal Pain. The emergency medical care you received today was directed at your acute symptoms. If you were prescribed any medication, please fill it and take as directed. It may take several days for your symptoms to resolve. Return to the Emergency Department if your symptoms worsen, do not improve, or if you have any other problems. Please contact your doctor or call one of the physicians/clinics you have been referred to that are listed on the Patient Visit Information form that is included in your discharge packet. Bring any paperwork you were given at discharge with you along with any medications you are taking to your follow up visit. Our treatment cannot replace ongoing medical care by a primary care provider (PCP) outside of the emergency department. Thank you for allowing the [facility] team to be part of your care today. If you had an X-Ray or CT scan: A Radiologist will review the ED reading if any change in treatment is needed we will contact you. If you had a blood, urine, or wound culture: It will take several days for the results, if any change in treatment is needed we will contact you. If you had an STI test: It will take 48 hours for the results. Please call after 1 week if you have not heard back. Prescriptions: Ciprofloxacin [Cipro] 500 mg PO Q12 #20 tab metroNIDAZOLE [Flagyl] 500 mg PO TID #30 tab Referrals: Franco Christianson MD, MD [Medical Doctor] - Follow up with primary Michael Baig MD [Medical Doctor] - Follow up with primary Forms: [employer] ([place]), WORK NOTE
[2017-02-20] MEDS ORDERED: Sodium Chloride 0.9% 1,000 ML IV STA (07:44)
--- NOTE | 2017-02-20 09:40 | CT ---
PROCEDURE: CT Pelvis with contrast HISTORY: surgery 7 weeks ago; r/o perirectal abscess COMPARISON: None. TECHNIQUE: Contiguous axial images of the pelvis with contrast. Coronal and sagittal reformats generated. Contrast dose: 100 mL Omnipaque 350 Radiation dose: Total exam DLP = 148.99 mGy-cm. This CT exam was performed using one or more of the following dose reduction techniques: Automated exposure control, adjustment of the mA and/or kV according to patient size, and/or use of iterative reconstruction technique. FINDINGS: BLADDER: Partially distended and grossly normal in appearance. REPRODUCTIVE ORGANS: The prostate gland is normal in size. VISUALIZED BOWEL: The visualized small bowel loops are normal in caliber. The visualized colon is unremarkable. There is gaseous distension of the rectum. There is apparent low attenuation in the right perirectal space few tiny foci of free air. No drainable abscess or fluid collection identified. PERITONEUM: No free fluid. LYMPH NODES: No enlarged lymph nodes. VASCULATURE: Unremarkable. BONES: No fracture or focal lesion. OTHER FINDINGS: None. IMPRESSION: Apparent low-density right perirectal space and few tiny foci of free air, findings may represent postsurgical chnages/ pleghmon/ developing abscess . No drainable abscess or fluid collection. Clinical correlation and follow-up is advised.
[2017-02-20 11:47] VITALS: O2SAT 100
[2017-02-20 13:31] VITALS: BP 113/51; PULSE 66; RESP 18
== END 2017-02-20 13:05 | disposition home or self-care (01) ==
LOC: ED 04:03
DX: K62.89 Other specified diseases of anus and rectum (principal); B20 Human immunodeficiency virus [HIV] disease; B19.10 Unspecified viral hepatitis B without hepatic coma; Z98.890 Other specified postprocedural states
CPT/HCPCS: 72193; 80053; 83690; 85025; 85610; 85730; 86850; 86900; 96374; 99285; J2270; J7040; Q9967

== ENCOUNTER 2017-03-09 21:54 | Emergency (ER) | payer MEDICARE, OTHER ==
[2017-03-09 21:54] VITALS: BMI 22.6
[2017-03-09] MEDS ORDERED: Morphine 4 mg/ml ISec IVP STA (22:30)
[2017-03-09 22:31] VITALS: TEMP 98.2
[2017-03-09] MEDS ORDERED: Sodium Chloride 0.9% 1,000 ML IV STA (22:32)
[2017-03-09] MEDS ORDERED: Iohexol 240 (50 ml) ONE (22:34)
--- NOTE | 2017-03-09 22:37 | ED PDOC ---
Arrival/HPI - General Chief Complaint: Abdominal Pain Time Seen by Provider: 03/09/17 22:11 Historian: Patient - History of Present Illness Narrative History of Present Illness (Text): 03/09/17 22:31 Abhilash Isaac is a 46 year old male, with a history of HIV/AIDS, Hepatitis B, and perirectal/perianal abscess, presents to the emergency department complaining of persistent diarrhea and new onset abdominal pain. Also reports of bilateral lower extremity cramping. Patient recently was on a 10 day course of antibiotics during which the diarrhea improved, but reports that symptoms worsened after completion. States he has an outpatient appointment with infectious disease and proctology on . Denies any fever , chills, headache, dizziness, nausea, vomiting, shortness of breath, chest pain , urinary symptoms or any other complaints at this time. Time/Duration: > month Symptom Onset: Gradual Symptom Course: Unchanged Severity Level: Mild Activities at Onset: Light Past Medical History - Provider Review Nursing Documentation Reviewed: Yes - Infectious Disease Hx of Infectious Diseases: None - Musculoskeletal/Rheumatological Hx Falls: No Hx Unsteady Gait: Yes - Gastrointestinal Hx Pancreatitis: Yes - Psychiatric Hx Anxiety: Yes Hx Substance Use: No - Surgical History Other/Comment: rectal fistula repair - Anesthesia Hx Anesthesia: No Hx Anesthesia Reactions: No Hx Malignant Hyperthermia: No Family/Social History - Physician Review Nursing Documentation Reviewed: Yes Family/Social History: No Known Family HX Smoking Status: Never Smoked Hx Alcohol Use: No Hx Substance Use: No Allergies/Home Meds Allergies/Adverse Reactions: Allergies amoxicillin Allergy (Verified 02/20/17 04:24) ANAPHYLAXIS PCN Allergy (Mild, Uncoded 12/28/16 19:58) SWELLING Review of Systems - Physician Review All systems were reviewed & negative as marked: Yes - Review of Systems Constitutional: Fatigue. absent: Fevers Respiratory: absent: Cough, Sputum Cardiovascular: absent: Chest Pain, Palpitations Gastrointestinal: Abdominal Pain, Diarrhea. absent: Nausea, Vomiting Neurological: Normal. absent: Headache, Dizziness Psychiatric: absent: Anxiety, Depression Physical Exam Vital Signs Reviewed: Yes Vital Signs Temp Pulse Resp BP Pulse Ox 03/10/17 03:00 72 16 107/75 100 03/10/17 01:54 79 18 104/64 100 03/10/17 00:10 82 16 103/68 99 03/09/17 21:54 98.2 F 92 H 16 121/51 L 99 Temperature: Afebrile Blood Pressure: Normal Pulse: Regular Appearance: Positive for: Non-Toxic Pain Distress: None Mental Status: Positive for: Alert and Oriented X 3 - Systems Exam Head: Present: Atraumatic, Normocephalic Pupils: Present: PERRL Conjunctiva: Present: Normal Mouth: Present: Moist Mucous Membranes Pharnyx: Present: Normal. No: ERYTHEMA, EXUDATE Neck: Present: Normal Range of Motion Respiratory/Chest: Present: Clear to Auscultation, Good Air Exchange. No: Respiratory Distress, Accessory Muscle Use Cardiovascular: Present: Regular Rate and Rhythm, Normal S1, S2. No: Murmurs Abdomen: Present: Tenderness (ttp in the epigastric and LUQ), Normal Bowel Sounds. No: Distention, Peritoneal Signs Back: Present: Normal Inspection Upper Extremity: Present: Normal Inspection. No: Cyanosis, Edema Lower Extremity: Present: Normal Inspection. No: Edema Neurological: Present: GCS=15, CN II-XII Intact, Speech Normal Skin: Present: Warm, Dry, Normal Color. No: Rashes Psychiatric: Present: Alert, Oriented x 3, Normal Insight, Normal Concentration Medical Decision Making ED Course and Treatment: 03/09/17 22:39 Impression: A 46 year old male who presents to the emergency department complaining of persistent diarrhea, new onset abdominal pain and b/l leg cramping. Differential Diagnosis included but are not limited to: colitis vs enteritis vs pancreatitis Plan: -- CT abdomen pelvis -- EKG -- Labs -- VCR -- Pepcid -- Morphine -- IV Fluids --Urine culture -- Urinalysis -- Reassess and disposition Progress Notes: 03/10/17 02:14 EXAM: CT Abdomen and Pelvis With Intravenous Contrast FINDINGS: Lower thorax: Minimal atelectasis. Small cyst or bulla RIGHT lower lobe. ABDOMEN: Liver: No mass. Gallbladder and bile ducts: No calcified gallstones. Dilated common bile duct, grossly stable. Pancreas: No mass. Mildly dilated pancreatic duct, grossly stable. Spleen: No splenomegaly. Adrenals: No mass. Kidneys and ureters: Few small renal calculi. Too small to characterize lesion within RIGHT kidney. No hydronephrosis. Stomach and bowel: Apparent mild mural thickening of several jejunal loops. No associated inflammatory stranding. Mild mural thickening of rectum. Few small foci of air within or adjacent to rectal wall, similar to previous examination. Apparent 1.2 x 1.0 x 1.0 cm hypodensity within RIGHT perirectal region. No obstruction. Appendix: Mildly enlarged appendix, measuring up to 7-8 mm in diameter. No definite surrounding inflammatory stranding. PELVIS: Bladder: Unremarkable. Reproductive: Unremarkable as visualized. Subperitoneal space: ABDOMEN and PELVIS: Intraperitoneal space: No significant fluid collection. No free air. Bones/joints: No acute fracture. Soft tissues: See above. Vasculature: Circumaortic LEFT renal vein. No aneurysm. Lymph nodes: No pathologically enlarged lymph nodes. IMPRESSION: 1. Probable proctitis with possible phlegmon/early abscess. 2. Possible mild enteritis. Clinical correlation is needed. 3. Mildly enlarged appendix without definite inflammation. Clinical correlation is needed. 4. Incidental/non-acute findings are described above. 03/10/17 04:07 Patient with noted history. Labs are unremarkable (decreasing lipase and stable LFTs). CT a/p results as noted. Patient seen by regional vice president surgical sales Gabino Hinojosa, who consulted with Dr. Baig, who said the abscess is improving and patient has follow up with proctology. Regarding appendix, the patient was not found to have RLQ pain, and per Dr. Baig, patient may be discharged. Patient otherwise with persistent diarrhea, which will likely need treatment of his AIDS before improvement. Patient already has follow up with ID and proctology, and per surgery, the patient may be discharged. - Lab Interpretations Lab Results: 03/09/17 22:50 03/09/17 22:50 Lab Results 03/09/17 22:50: Magnesium 1.2 L 03/09/17 22:50: Sodium 143, Potassium 4.2, Chloride 107, Carbon Dioxide 23, Anion Gap 17, BUN 16, Creatinine 0.9, Est GFR ( Amer) > 60, Est GFR (Non- Af Amer) > 60, Random Glucose 87, Calcium 9.3, Total Bilirubin 0.5, AST 115 H, ALT 176 H, Alkaline Phosphatase 157 H, Total Protein 10.2 H, Albumin 4.3, Globulin 5.9, Albumin/Globulin Ratio 0.7 L, Amylase 170 H, Lipase 407 H 03/09/17 22:50: PT 13.3 H, INR 1.23 H, APTT 28.2 03/09/17 22:50: WBC 4.4 L, RBC 4.61, Hgb 14.5 D, Hct 41.2 L, MCV 89.4, MCH 31.5 , MCHC 35.2, RDW 14.7 H, Plt Count 211, MPV 10.6, Gran % 74.3 H, Lymph % (Auto) 13.9 L, [place] % (Auto) 10.7 H, Eos % (Auto) 1.1 L, Baso % (Auto) 0.0, Gran # 3.25 , Lymph # 0.6 L, [place] # 0.5, Eos # 0.1, Baso # 0.00 - RAD Interpretation Radiology Orders: 03/09/17 22:30 ABD PELVIS PO & IV CONTRAST [CT] Stat 03/09/17 22:32 CHEST TWO VIEWS (PA/LAT) [RAD] Stat - Medication Orders Current Medication Orders: Discontinued Medications Famotidine (Pepcid) 20 mg IVP STAT STA Stop: 03/09/17 22:31 Last Admin: 03/09/17 22:58 Dose: 20 mg IVP Administration Document 03/09/17 22:58 JO (Rec: 03/09/17 22:58 JO [id number]) Charges for Administration # of IVP Administrations 1 Sodium Chloride (Sodium Chloride 0.9%) 1,000 mls @ 999 mls/hr IV .Q1H1M STA Stop: 03/09/17 23:32 Last Admin: 03/09/17 22:57 Dose: 999 mls/hr eMAR Start Stop Document 03/09/17 22:57 JOL (Rec: 03/09/17 22:58 JO [id number]) Intravenous Solution Start Date 03/09/17 Start Time 22:58 End Date 03/09/17 End time 23:58 Total Infusion Time 60 Magnesium Sulfate 2 gm/ Sodium (Chloride) 104 mls @ 102 mls/hr IV ONCE ONE Stop: 03/10/17 01:56 Last Admin: 03/10/17 01:28 Dose: 102 mls/hr eMAR Start Stop Document 03/10/17 01:28 RD (Rec: 03/10/17 01:29 RD [id number]) Intravenous Solution Start Date 03/10/17 Start Time 01:28 End Date 03/10/17 End time 02:30 Total Infusion Time 62 Morphine Sulfate (Morphine) 4 mg IVP STAT STA Stop: 03/09/17 22:31 Last Admin: 03/09/17 22:58 Dose: 4 mg MAR Pain Assessment Document 03/09/17 22:58 JOL (Rec: 03/09/17 22:58 JOL [id number]) Pain Reassessment Is this a pain reassessment? No Sleep Is patient sleeping during reassessment? No Presence of Pain Presence of Pain Yes Pain Scale Used Pain Scale Used Numeric Location Upper or Lower Upper Pain Location Body Site Abdomen Description Intensity of Pain at present 8 Pain Behavior Moaning Withdrawal from Touch Rubbing Site Restlessness Facial Grimacing Aggravating Factors ADL's Changing Position Alleviating Factors/Management Medication Techniques IVP Administration Document 03/09/17 22:58 JOL (Rec: 03/09/17 22:58 JOL [id number]) Charges for Administration # of IVP Administrations 1 Morphine Sulfate (Morphine) 2 mg IVP STAT STA Stop: 03/10/17 00:33 Last Admin: 03/10/17 00:50 Dose: 2 mg MAR Pain Assessment Document 03/10/17 00:50 JOL (Rec: 03/10/17 00:50 JOL [id number]) Pain Reassessment Is this a pain reassessment? No Sleep Is patient sleeping during reassessment? No Presence of Pain Presence of Pain Yes Pain Scale Used Pain Scale Used Numeric Location Pain Location Body Site Abdomen Description Intensity of Pain at present 7 IVP Administration Document 03/10/17 00:50 JOL (Rec: 03/10/17 00:50 JOL [id number]) Charges for Administration # of IVP Administrations 1 - Scribe Statement The provider has reviewed the documentation as recorded by the Leann Solorzano Provider Attestation: All medical record entries made by the Jeromeibjaylyn were at my direction and personally dictated by me. I have reviewed the chart and agree that the record accurately reflects my personal performance of the history, physical exam, medical decision making, and the department course for this patient. I have also personally directed, reviewed, and agree with the discharge instructions and disposition. Disposition/Present on Arrival - Present on Arrival Any Indicators Present on Arrival: No History of DVT/PE: No History of Uncontrolled Diabetes: No Urinary Catheter: No History of Decub. Ulcer: No History Surgical Site Infection Following: None - Disposition Have Diagnosis and Disposition been Completed?: Yes Diagnosis: Diarrhea, Abdominal pain Disposition: HOME/ ROUTINE Disposition Time: 16:10 Patient Plan: Discharge Condition: GOOD Discharge Instructions (ExitCare): Acute Diarrhea (ED) Additional Instructions: Drink plenty of fluids, and recommend continuing yogurt. You may use kaopectate for diarrhea. Follow up with your infectious disease doctor and crystal mounter as scheduled. Return to the emergency department if any new concerning symptoms. Prescriptions: Dicyclomine [Dicyclomine HCl] 1 cap PO TID PRN #30 cap PRN Reason: Gi Distress Referrals: Charissa Palmer, [Primary Care Provider] - Follow up with primary Forms: [employer] (Pashto)
[2017-03-09 23:02] LABS: EOS # 0.1 (0.0-0.7); EOS % 1.1 % (1.5-5.0); GRAN # 3.25 (1.4-6.5); GRAN % 74.3 % (50.0-68.0); HEMATOCRIT 41.2 % (42.0-52.0); LYMPH # 0.6 (1.2-3.4); LYMPH % 13.9 % (22.0-35.0); MEAN CELL VOLUME 89.4 fl (80.0-105.0); MEAN CORPUSCULAR HEMOGLOBIN 31.5 pg (25.0-35.0); MEAN CORPUSCULAR HGB CONC 35.2 g/dl (31.0-37.0); MEAN PLATELET VOLUME 10.6 fl (7.0-11.0); MONO # 0.5 (0.1-0.6); MONO % 10.7 % (1.0-6.0); RED CELL DISTRIBUTION WIDTH 14.7 % (11.5-14.5); WHITE BLOOD COUNT 4.4 10^3/ul (4.5-11.0)
[2017-03-09 23:10] LABS: ALB/GLOB RATIO 0.7 (1.1-1.8); ALKALINE PHOSPHATASE 157 U/L (38-126); ALT/SGPT 176 U/L (7-56); AMYLASE 170 U/L (35-125); AST/SGOT 115 U/L (17-59); BILIRUBIN,TOTAL 0.5 mg/dL (0.2-1.3); BLOOD UREA NITROGEN 16 mg/dL (7-21); CALCIUM 9.3 mg/dL (8.4-10.5); CARBON DIOXIDE 23 mmol/L (21-33); CHLORIDE 107 mmol/L (98-107); GFR AFRICAN-AMERICAN > 60; GLUCOSE,RANDOM 87 mg/dL (70-110); INR 1.23 (0.93-1.08); LIPASE 407 U/L (23-300); PARTIAL THROMBOPLASTIN TIME 28.2 Seconds (23.7-30.8); POTASSIUM 4.2 mmol/L (3.6-5.0); SODIUM 143 mmol/L (132-148); TOTAL PROTEIN 10.2 g/dL (5.8-8.3)
[2017-03-10] MEDS ORDERED: Morphine 2 mg/ml ISec IVP STA (00:32)
[2017-03-10] MEDS ORDERED: Iohexol 350 MG/100 ML VIAL ONE (00:35)
[2017-03-10] MEDS ORDERED: Magnesium Sulfate 2 GM in Sodium Chloride 0.9% 100 ML IV ONE (00:55)
--- NOTE | 2017-03-10 02:09 | CT ---
EXAM: CT Abdomen and Pelvis With Intravenous Contrast CLINICAL HISTORY: 46 years old, male; Pain; Abdominal pain; Generalized; Prior surgery; Surgery type: Hernia; Additional info: Abd pain, diarrhea, aids TECHNIQUE: Axial computed tomography images of the abdomen and pelvis with intravenous contrast. All CT scans at this facility use one or more dose reduction techniques, viz.: automated exposure control; ma/kV adjustment per patient size (including targeted exams where dose is matched to indication; i.e. head); or iterative reconstruction technique. Coronal and sagittal reformatted images were created and reviewed. CONTRAST: 96 mL of OMNI 350 administered intravenously. COMPARISON: 02/20/2017, 12/28/2016 FINDINGS: Lower thorax: Minimal atelectasis. Small cyst or bulla RIGHT lower lobe. ABDOMEN: Liver: No mass. Gallbladder and bile ducts: No calcified gallstones. Dilated common bile duct, grossly stable. Pancreas: No mass. Mildly dilated pancreatic duct, grossly stable. Spleen: No splenomegaly. Adrenals: No mass. Kidneys and ureters: Few small renal calculi. Too small to characterize lesion within RIGHT kidney. No hydronephrosis. Stomach and bowel: Apparent mild mural thickening of several jejunal loops. No associated inflammatory stranding. Mild mural thickening of rectum. Few small foci of air within or adjacent to rectal wall, similar to previous examination. Apparent 1.2 x 1.0 x 1.0 cm hypodensity within RIGHT perirectal region. No obstruction. Appendix: Mildly enlarged appendix, measuring up to 7-8 mm in diameter. No definite surrounding inflammatory stranding. PELVIS: Bladder: Unremarkable. Reproductive: Unremarkable as visualized. Subperitoneal space: ABDOMEN and PELVIS: Intraperitoneal space: No significant fluid collection. No free air. Bones/joints: No acute fracture. Soft tissues: See above. Vasculature: Circumaortic LEFT renal vein. No aneurysm. Lymph nodes: No pathologically enlarged lymph nodes. IMPRESSION: 1. Probable proctitis with possible phlegmon/early abscess. 2. Possible mild enteritis. Clinical correlation is needed. 3. Mildly enlarged appendix without definite inflammation. Clinical correlation is needed. 4. Incidental/non-acute findings are described above.
[2017-03-10 03:29] VITALS: O2SAT 100
[2017-03-10 03:40] VITALS: BP 107/75; PULSE 72
[2017-03-10 04:35] VITALS: RESP 18
--- NOTE | 2017-03-10 08:27 | RAD ---
Chest radiographs HISTORY: COMPARISON: 12/29/2016. TECHNIQUE: Chest PA and lateral FINDINGS: LINES AND TUBES: None. LUNG AND PLEURA: The lungs are well inflated and clear. HEART AND MEDIASTINUM: The heart is not enlarged. The hilar and mediastinal contours are within normal limits. SKELETAL STRUCTURES: The bony structures are within normal limits for the patient's age. VISUALIZED UPPER ABDOMEN: Normal. OTHER FINDINGS: None. IMPRESSION: No active pulmonary disease.
--- NOTE | 2017-03-10 11:42 | CARD ---
APPROVED REPORT EKG Measurement Heart [id number] <Conclusion> Sinus rhythm with premature atrial complexes Septal infarct, age undetermined Abnormal ECG
== END 2017-03-10 04:35 | disposition home or self-care (01) ==
LOC: ED 21:54
DX: R19.7 Diarrhea, unspecified (principal); R10.9 Unspecified abdominal pain; B19.10 Unspecified viral hepatitis B without hepatic coma
CPT/HCPCS: 71020; 74177; 80053; 82150; 83690; 83735; 85025; 85610; 85730; 93005; 96361; 96365; 96375; 96376; 99285; J2270; J3475; J7040; Q9966; Q9967

== ENCOUNTER 2017-03-27 17:03 | Emergency (ER) | payer OTHER ==
[2017-03-27 17:03] VITALS: BMI 22.6
[2017-03-27] MEDS ORDERED: Sodium Chloride 0.9% 1,000 ML IV STA (18:52)
[2017-03-27 19:07] LABS: BASO # 0.01 K/mm3 (0.0-2.0); BASO % 0.3 % (0.0-3.0); EOS # 0.1 (0.0-0.7); GRAN # 2.54 (1.4-6.5); GRAN % 72.6 % (50.0-68.0); HEMATOCRIT 40.4 % (42.0-52.0); LYMPH # 0.6 (1.2-3.4); LYMPH % 17.4 % (22.0-35.0); MEAN CELL VOLUME 87.3 fl (80.0-105.0); MEAN CORPUSCULAR HEMOGLOBIN 31.7 pg (25.0-35.0); MEAN CORPUSCULAR HGB CONC 36.4 g/dl (31.0-37.0); MEAN PLATELET VOLUME 11.1 fl (7.0-11.0); MONO # 0.3 (0.1-0.6); MONO % 7.7 % (1.0-6.0); RED CELL DISTRIBUTION WIDTH 13.9 % (11.5-14.5); WHITE BLOOD COUNT 3.5 10^3/ul (4.5-11.0)
[2017-03-27 19:11] LABS: ALB/GLOB RATIO 0.8 (1.1-1.8); ALKALINE PHOSPHATASE 154 U/L (38-126); ALT/SGPT 195 U/L (7-56); AST/SGOT 119 U/L (17-59); BILIRUBIN,TOTAL 0.6 mg/dL (0.2-1.3); BLOOD UREA NITROGEN 19 mg/dL (7-21); CALCIUM 9.8 mg/dL (8.4-10.5); CARBON DIOXIDE 20 mmol/L (21-33); CHLORIDE 110 mmol/L (98-107); GFR AFRICAN-AMERICAN > 60; GLUCOSE,RANDOM 89 mg/dL (70-110); LIPASE 900 U/L (23-300); POTASSIUM 4.3 mmol/L (3.6-5.0); SODIUM 143 mmol/L (132-148); TOTAL PROTEIN 10.2 g/dL (5.8-8.3)
[2017-03-27 19:14] LABS: INR 1.51 (0.93-1.08); PARTIAL THROMBOPLASTIN TIME 35.3 Seconds (25.1-36.5)
[2017-03-27] MEDS ORDERED: Morphine 4 mg/ml ISec IVP STA (19:30)
[2017-03-27] MEDS ORDERED: Morphine 2 mg/ml ISec IVP STA (19:32)
[2017-03-27] MEDS ORDERED: HYDROmorphone 0.5 mg/0.5 ml ISec IVP STA (19:47)
--- NOTE | 2017-03-27 20:01 | ED PDOC ---
Arrival/HPI <David Sosa - Last Filed: 03/27/17 20:05> - General Historian: Patient <Lovely Shirley - Last Filed: 03/28/17 19:17> - General Chief Complaint: GI Problem Time Seen by Provider: 03/27/17 18:37 - History of Present Illness Narrative History of Present Illness (Text): 03/27/17 19:48 46yo male with PMhx of HIV/Aids, hepatitis C, perirectal abscess who present with complaint of diarrhea and mild lower abdominal discomfort with diarrhea. Pt notes chronic history of diarrhea secondary to HIV/AIDs. States he usually come to the ED if he feels weak from the diarrhea. Notes that he specifically came to ED for hydration and pain medication. states he recently started seeing a new Doctor in [place] and have another appointment with them next month. He denies nausea, vomiting, fever, chills, chest pain, any other complaint. (Lovely Shirley) Past Medical History - Provider Review Nursing Documentation Reviewed: Yes - Infectious Disease Hx of Infectious Diseases: None - Musculoskeletal/Rheumatological Hx Falls: No Hx Unsteady Gait: Yes - Gastrointestinal Hx Pancreatitis: Yes - Psychiatric Hx Anxiety: Yes Hx Substance Use: No - Surgical History Other/Comment: rectal fistula repair - Anesthesia Hx Anesthesia: No Hx Anesthesia Reactions: No Hx Malignant Hyperthermia: No <Lovely Shirley - Last Filed: 03/28/17 19:17> Family/Social History - Physician Review Nursing Documentation Reviewed: Yes Family/Social History: Unknown Family HX Smoking Status: Never Smoked Hx Alcohol Use: No Hx Substance Use: No <Lovely Shirley - Last Filed: 03/28/17 19:17> Allergies/Home Meds <David Sosa - Last Filed: 03/27/17 20:05> <Lovely Shirley - Last Filed: 03/28/17 19:17> Allergies/Adverse Reactions: Allergies amoxicillin Allergy (Verified 03/27/17 17:39) ANAPHYLAXIS PCN Allergy (Mild, Uncoded 12/28/16 19:58) SWELLING Home Medications: Home Meds Medication Instructions Recorded Confirmed No Known Home Med 03/27/17 03/27/17 Review of Systems - Physician Review All systems were reviewed & negative as marked: Yes - Review of Systems Constitutional: Normal Eyes: Normal ENT: Normal Respiratory: Normal Cardiovascular: Normal Gastrointestinal: Abdominal Pain, Diarrhea. absent: Constipation, Nausea, Vomiting, Hematochezia, Hematemesis Genitourinary Male: Normal Musculoskeletal: Normal Skin: Normal Neurological: Normal Endocrine: Normal Hemo/Lymphatic: Normal Psychiatric: Normal <Lovely Shirley - Last Filed: 03/28/17 19:17> Physical Exam Vital Signs Reviewed: Yes Temperature: Afebrile Blood Pressure: Normal Pulse: Regular Respiratory Rate: Normal Appearance: Positive for: Well-Appearing, Non-Toxic, Comfortable Pain Distress: None Mental Status: Positive for: Alert and Oriented X 3 - Systems Exam Head: Present: Atraumatic, Normocephalic Pupils: Present: PERRL Extroacular Muscles: Present: EOMI Conjunctiva: Present: Normal Mouth: Present: Moist Mucous Membranes Neck: Present: Normal Range of Motion Respiratory/Chest: Present: Clear to Auscultation, Good Air Exchange. No: Respiratory Distress, Accessory Muscle Use Cardiovascular: Present: Regular Rate and Rhythm, Normal S1, S2. No: Murmurs Abdomen: Present: Normal Bowel Sounds, Other (Soft). No: Tenderness, Distention , Peritoneal Signs, Rebound, Guarding, McBurney's Point Tender, Rovsing's Sign Present Back: Present: Normal Inspection Upper Extremity: Present: Normal Inspection. No: Cyanosis, Edema Lower Extremity: Present: Normal Inspection. No: Edema Neurological: Present: GCS=15, CN II-XII Intact, Speech Normal Skin: Present: Warm, Dry, Normal Color. No: Rashes Psychiatric: Present: Alert, Oriented x 3, Normal Insight, Normal Concentration <Lovely Shirley A - Last Filed: 03/28/17 19:17> Vital Signs Temp Pulse Resp BP Pulse Ox 03/27/17 21:07 98.2 F 76 16 110/76 99 03/27/17 17:42 98.3 F 90 18 107/70 100 03/27/17 17:31 98.3 F 90 16 107/70 100 Medical Decision Making <David Sosa - Last Filed: 03/27/17 20:05> <Lovely Shirley - Last Filed: 03/28/17 19:17> ED Course and Treatment: 03/27/17 20:40 Pt in ED for diarrhea . PT notes history of diarrhea secondary to his history of HIV/AIDs. He noted that he came to ED for hydration and pain medication. Pt was hydrated and dilaudid 0.5mg was ordered Lab was reviewed and elevated Lipase was noted. This was higher than pt's previous visit lipase, although review of his charts notes chronic elevated lipase. Patient had abdominal CT on his last visit 2weeks ago and on further question he notes that his lipase is always elevated and has gone up to as high as 1800 at one point. Notes that he have appointment with his doctors for medication. Imaging will not be done at this visit, hence pt abdominal exam is benign and he was noted to be eating in ED. He recently started seeing new Doctors in [place] and was strongly advised to f/u for antiviral medications to adress the cause of his diarrhea and other symptoms. (Lovely Shirley) - Lab Interpretations Lab Results: 03/27/17 06:52 03/27/17 06:52 Lab Results 03/27/17 06:52: Sodium 143, Potassium 4.3, Chloride 110 H, Carbon Dioxide 20 L, Anion Gap 17, BUN 19, Creatinine 0.9, Est GFR ( Amer) > 60, Est GFR (Non- Af Amer) > 60, Random Glucose 89, Calcium 9.8, Total Bilirubin 0.6, AST 119 H, ALT 195 H, Alkaline Phosphatase 154 H, Total Protein 10.2 H, Albumin 4.6, Globulin 5.6, Albumin/Globulin Ratio 0.8 L, Lipase 900 H 03/27/17 06:52: PT 16.6 H, INR 1.51 H, APTT 35.3 03/27/17 06:52: WBC 3.5 L D, RBC 4.63, Hgb 14.7, Hct 40.4 L, MCV 87.3, MCH 31.7 , MCHC 36.4, RDW 13.9, Plt Count 176, MPV 11.1 H, Gran % 72.6 H, Lymph % (Auto) 17.4 L, [place] % (Auto) 7.7 H, Eos % (Auto) 2.0, Baso % (Auto) 0.3, Gran # 2.54, Lymph # 0.6 L, [place] # 0.3, Eos # 0.1, Baso # 0.01 - Medication Orders Current Medication Orders: Discontinued Medications Hydromorphone HCl (Dilaudid) 0.5 mg IVP STAT STA Stop: 03/27/17 19:48 Last Admin: 03/27/17 20:30 Dose: 0.5 mg MAR Pain Assessment Document 03/27/17 20:30 SC (Rec: 03/27/17 20:45 SC [id number]) Pain Reassessment Is this a pain reassessment? No Sleep Is patient sleeping during reassessment? 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 <David Sosa - Last Filed: 03/27/17 20:05> Disposition/Present on Arrival <David Sosa - Last Filed: 03/27/17 20:05> - Present on Arrival Any Indicators Present on Arrival: No History of DVT/PE: No History of Uncontrolled Diabetes: No Urinary Catheter: No History of Decub. Ulcer: No History Surgical Site Infection Following: None - Disposition Have Diagnosis and Disposition been Completed?: Yes Disposition Time: 21:10 Patient Plan: Discharge <Lovely Shirley - Last Filed: 03/28/17 19:17> - Disposition Diagnosis: Diarrhea Disposition: HOME/ ROUTINE Condition: STABLE Discharge Instructions (ExitCare): Chronic Diarrhea (ED) Additional Instructions: Follow up with your doctor Return to ED for any new symptoms Referrals: Charissa Palmer, [Primary Care Provider] - Follow up with primary Forms: [employer] (Faroese)
[2017-03-27 21:08] VITALS: BP 110/76; PULSE 76; RESP 16; TEMP 98.2; O2SAT 99
== END 2017-03-27 21:09 | disposition home or self-care (01) ==
LOC: ED 17:03
DX: R19.7 Diarrhea, unspecified (principal)
CPT/HCPCS: 80053; 83690; 85025; 85610; 85730; 87040; 96361; 96374; 99283; J1170; J7040